=== PATIENT | female | born 1940 | race Caucasian/White ===

== ENCOUNTER → 2020-05-07 12:52 | Outpatient (CLI) | payer MEDICARE, SELFPAY ==
--- NOTE | 2020-05-07 12:52 | MM_ITS ---
PROCEDURE: MM DIG SCREENING MAMM BI W/CAD Referring Doctor: Itz Urbano Patient Age:79Y CLINICAL INDICATION: screening 79-year-old, no hormones, no new complaints. Family history sister with breast cancer in her 40s COMPARISON: No exams were available for comparison Prior outside films have been called for from [facility] several times but have never arrive TECHNIQUE: Standard CC and MLO images were obtained. R2 CAD reviewed. Bilateral digital breast tomosynthesis included. FINDINGS: Moderate breast density. Slightly beaded,, ductal prominence pattern bilaterally. Fibroglandular elements most evident throughout retroareolar region and central breast.. No suspicious calcifications. No dominant mass. CAD highlights no areas of concern either breast . Right breast. No areas of significant concern Small focus density at the deep superior right breast on MLO view dissipates on tomosynthesis view and cc views. Overall no area of significant concern.. Would encourage and emphasize bilateral follow-up mammogram 1 year. Left breast. No focal area of significant concern the IMPRESSION: No areas of significant concern. Bilateral follow-up 1 year , would be emphasized and encouraged. (We call several times for mammogram studies from [place], but they never arrived. An addendum a follow if they the can be obtained by patient or become available)) BI-RAD Category: 2 Benign Finding(s) FOLLOW-UP: 1YR 1 Year Follow-up (A letter has been sent to the patient regarding results of the study.) Dictated by: Myron Lange MD 05/27/2020 10:39 Myron Lange MD in [place] 05/27/2020 10:39
--- NOTE | 2020-05-07 12:52 | XR_ITS ---
PROCEDURE: XR DEXA AXIAL SKELETON CLINICAL HISTORY: screening COMPARISON: No exams were available for comparison FINDINGS: The right hip BMD is 0.559 with a T-score of -2.6. The left hip BMD is 0.520 with a T-score of -3.5. The lumbar spine BMD is 0.709 with a T-score of -3.1. IMPRESSION: This patient is considered osteoporotic according to the World Health Organization criteria. Fracture risk is high. Treatment is advised. Based on these results a follow-up exam is recommended in 1 year. Dictated by: Zack Linder MD 05/09/2020 08:12 Zack Linder MD in [place] 05/09/2020 08:12
== END ==
PROVIDERS: PCP Family Medicine; Visit Provider Family Medicine
DX: Z12.31 Encounter for screening mammogram for malignant neoplasm of breast (principal); Z78.0 Asymptomatic menopausal state
CPT/HCPCS: 77063; 77067; 77080

== ENCOUNTER → 2020-06-04 10:46 | Outpatient (CLI) | payer MEDICARE, SELFPAY ==
[2020-06-04 12:10] LABS: Creatine Kinase 43 U/L (30-135); Erythrocyte Sedimentation Rate 6 mm/hr (0-30)
[2020-06-04 12:16] LABS: C-Reactive Protein 3.5 mg/L (0-4)
== END ==
PROVIDERS: Visit Provider Internal Medicine Rheumatology
DX: M25.50 Pain in unspecified joint (principal); M79.10 Myalgia, unspecified site
CPT/HCPCS: 36415; 82550; 85651; 86140

== ENCOUNTER → 2020-10-02 14:23 | Outpatient (CLI) | payer MEDICARE, SELFPAY ==
[2020-10-02 16:01] LABS: Basophils % 0.5 % (0.1-2.0); Eosinophils % 0.1 % (0.1-12.0); Hematocrit 46.1 % (37.0-47.0); Hemoglobin 14.3 g/dL (12.2-16.2); Lymphocytes # 0.5 K/mm3 (0.7-4.5); Lymphocytes % 5.8 % (10-50); Mean Corpuscular Hemoglobin 30.6 pg (27.0-31.2); Mean Corpuscular Volume 98.6 fl (81-99); Mean Platelet Volume 8.7 fl (7.4-10.4); Monocytes # 0.1 K/mm3 (0.1-1.0); Monocytes % 1.4 % (1.7-9.3); Neutrophils # 7.5 K/mm3 (1.8-7.8); Neutrophils % 92.2 % (37.0-80.0); Platelet Count 258 K/mm3 (142-424); Red Blood Count 4.68 M/mm3 (4.20-5.40); Red Cell Distribution Width 14.2 % (11.5-17.5); White Blood Count 8.1 K/mm3 (4.8-10.8)
[2020-10-02 16:09] LABS: Alanine Aminotransferase 22 U/L (12-78); Albumin Level 4.5 g/dl (3.5-5.0); Albumin/Globulin Ratio 1.9 (1.1-1.8); Alkaline Phosphatase 128 U/L (38-126); Anion Gap 12.4 mEq/L (5-15); Aspartate Amino Transferase 31 U/L (14-36); Bilirubin,Total 0.5 mg/dl (0.2-1.3); Blood Urea Nitrogen 19 mg/dl (7-17); Calcium 9.8 mg/dl (8.4-10.2); Carbon Dioxide 23 mmol/L (22.0-30.0); Chloride 103 mmol/L (98-107); Cholesterol 309 mg/dl (140-200); Estimated Glomerular Filt Rate 61 ml/min (>60); GFR (African American) 73 ML/MIN (>60); Globulin 2.4 g/dL (1.3-3.2); Glucose 111 mg/dl (74-100); Potassium 5.4 mmoL/L (3.5-5.1); Sodium 133 mmol/L (136-145); Total Protein,Serum 6.9 g/dl (6.3-8.2); Triglycerides 60 mg/dl (30-150); VLDL Cholesterol 12 mg/dL (0-40)
[2020-10-02 16:19] LABS: Chol/HDL Ratio 2.6 (1-3.5); HDL Cholesterol 121 mg/dl (40-60)
[2020-10-02 16:29] LABS: T4 (Thyroxine) 8.6 ug/dl (5.53-11.0)
[2020-10-02 16:42] LABS: Thyroid Stimulating Hormone 1.21 uIU/mL (0.465-4.68)
[2020-10-02 17:54] LABS: MANUAL DIFFERENTIAL MANUAL DIFFERENTIAL (MANUAL DIFF)
[2020-10-02 18:15] LABS: Lymphocytes % 7 % (10-50); Monocytes % 2 % (2-9); Neutrophils % 91 % (42-76); Platelet Estimate Normal; RBC Morphology Normal; Total Cells Counted 100
== END ==
PROVIDERS: Visit Provider Family Medicine
DX: G40.909 Epilepsy, unspecified, not intractable, without status epilepticus (principal); M79.7 Fibromyalgia; M35.3 Polymyalgia rheumatica; I10 Essential (primary) hypertension
CPT/HCPCS: 80053; 80061; 84436; 84443; 85007; 85025

== ENCOUNTER → 2021-02-01 13:24 | Outpatient (CLI) | payer MEDICARE, SELFPAY ==
--- NOTE | 2021-02-01 13:29 | XR_ITS ---
PROCEDURE: XR CHEST 2V CLINICAL HISTORY: left chest wall pain, inferior/posterior/lateral COMPARISON: No exams were available for comparison FINDINGS: Bilateral apical pleural scarring is noted. Focal irregular density is noted in the right upper zone in the subpleural location. Background of chronic interstitial changes. No lobar consolidation, pleural effusions or pneumothorax. Cardiac size and central pulmonary vasculature within normal limits. Vascular calcification is noted. Degenerative changes of the visualized thoracic spine. Minor levoscoliosis is noted. IMPRESSION: Focal subtle density in the right mid zone in subpleural location. A CT scan of the thorax without contrast is recommended for further evaluation. Dictated by: Beckie Cordero 02/01/2021 15:24 Beckie Cordero in [place] 02/01/2021 15:24
--- NOTE | 2021-02-01 13:29 | XR_ITS ---
PROCEDURE: XR RIBS LT 2V CLINICAL INDICATION: pain COMPARISON: No exams were available for comparison FINDINGS: Limited study as the upper ribs are not visualized and osteopenia. There is healing fractures of the left 6th 7th and 8th ribs. No evidence of acute fractures are noted. Osteopenia is noted. Minor degenerative changes of the visualized thoracic spine noted. IMPRESSION: Limited study. Healing rib fractures on the left. Dictated by: Beckie Cordero 02/01/2021 15:26 Beckie Cordero in [place] 02/01/2021 15:26
== END ==
PROVIDERS: PCP Family Medicine; Visit Provider Family Medicine
DX: R69 Illness, unspecified (principal)
CPT/HCPCS: 71046; 71100

== ENCOUNTER → 2021-03-04 08:13 | Outpatient (CLI) | payer MEDICARE, SELFPAY ==
--- NOTE | 2021-03-04 08:14 | CT_ITS ---
PROCEDURE: CT CHEST WO CON CLINICAL INDICATION: abn cxr Follow-up abnormal chest x-ray COMPARISON: CR XR CHEST 2V from 02/01/2021 TECHNIQUE: Axial images obtained with sagittal and coronal reformats. All CT scans at the facility use one or more dose reduction, viz: automated exposure control, ma/kV adjustment per patient size (including targeted exams where dose is matched to indication, i.e. head), or iterative reconstruction technique. FINDINGS: No mediastinal or hilar mass. There are few small mediastinal lymph nodes. Normal heart size. There is a small hiatal hernia. Upper abdominal images show a hypodensity of the right hepatic lobe at 6 mm and could be due to small cyst. There is biapical pleural thickening. Pleural parenchymal thickening present in the right apex. This may be due to scarring. Subpleural density noted in the right upper lobe posterior laterally suggesting scarring. There is mild pleural thickening of the right major fissure laterally accounting for the radiographic abnormality. Chronic changes are present in the right middle lobe. A subpleural nodules present in the right lower lobe posteriorly at 4 mm. A 4 mm fissural nodule is present in the major fissure superiorly on the right. Scarring or atelectatic changes are present in the left lower lobe and lingula. There is mild upper thoracic curvature convex right and lower thoracic curvature convex left. IMPRESSION: 1. There are scattered pleural and parenchymal opacities as described above which may be due to scarring and or atelectatic change. Consider six-month follow-up to confirm stability. 2. Nodular opacity noted on the chest x-ray is secondary to some thickening of the right major fissure laterally. Dictated by: Zack Linder MD 03/04/2021 12:57 Zack Linder MD in [place] 03/04/2021 12:57
== END ==
PROVIDERS: PCP Family Medicine; Visit Provider Family Medicine
DX: R93.89 Abnormal findings on diagnostic imaging of other specified body structures (principal); Z13.820 Encounter for screening for osteoporosis; Z78.0 Asymptomatic menopausal state
CPT/HCPCS: 71250

== ENCOUNTER → 2021-03-08 09:23 | Outpatient (CLI) | payer MEDICARE, SELFPAY ==
--- NOTE | 2021-03-08 09:23 | XR_ITS ---
PROCEDURE: XR DEXA AXIAL SKELETON CLINICAL HISTORY: screening COMPARISON: No exams were available for comparison FINDINGS: The right hip BMD is 0.59 with a T-score of -2.8. The left hip BMD is 0.490 with a T-score of -3.7. The lumbar spine BMD is 0.766 with a T-score of -2.6. IMPRESSION: This patient is considered osteoporotic according to the World Health Organization criteria. Fracture risk is high. Treatment is advised. Based on these results a follow-up exam is recommended in one year. Dictated by: Zack Linder MD 03/08/2021 12:19 Zack Linder MD in [place] 03/08/2021 12:19
== END ==
PROVIDERS: PCP Family Medicine; Visit Provider Family Medicine
DX: Z78.0 Asymptomatic menopausal state (principal)
CPT/HCPCS: 77080

== ENCOUNTER → 2021-03-15 14:16 | Outpatient (CLI) | payer MEDICARE, SELFPAY ==
--- NOTE | 2021-03-15 14:19 | CA_ITS ---
APPROVED REPORT Bilateral Lower Extremity Venous Study for DVT. Childhood Development Teacher: VERENA Indications Lower Extremity Pain: Bilateral Lower Extremity Edema: Bilateral edema and pain Vein Imaging CFV (R): compressive, spontaneous, phasic, augmentation SFJ (R): compressive, spontaneous, phasic, augmentation FEM (R): compressive, spontaneous, phasic, augmentation POP (R): compressive, spontaneous, phasic, augmentation DFV (R): compressive, spontaneous, phasic, augmentation PTV (R): compressive, spontaneous, phasic, augmentation GSV (R): compressive, spontaneous, phasic, augmentation SSV (R): compressive, spontaneous, phasic, augmentation Peroneals (R):compressive, spontaneous, phasic, augmentation GAS (R): compressive, spontaneous, phasic, augmentation CFV (L): compressive, spontaneous, phasic, augmentation SFJ (L): compressive, spontaneous, phasic, augmentation FEM (L): compressive, spontaneous, phasic, augmentation POP (L): compressive, spontaneous, phasic, augmentation DFV (L): compressive, spontaneous, phasic, augmentation PTV (L): compressive, spontaneous, phasic, augmentation GSV (L): compressive, spontaneous, phasic, augmentation SSV (L): compressive, spontaneous, phasic, augmentation Peroneals (L):compressive, spontaneous, phasic, augmentation GAS (L): compressive, spontaneous, phasic, augmentation Findings Color flow duplex demonstrates no evidence of DVT of the following bilateral lower extremity Veins:Common Femoral Vein, Femoral Vein, Popliteal Vein, Posterior Tibial Veins, Peroneal Veins, Deep Femoral Vein. Negative for DVT. Conclusion Negative for DVT. Electronically signed by : Zack Linder MD 03/15/2021 16:18:25
--- NOTE | 2021-03-15 14:23 | XR_ITS ---
PROCEDURE: XR TIBIA FIBULA RT 2V CLINICAL INDICATION: pain COMPARISON: No exams were available for comparison FINDINGS: No fracture or dislocation. No lytic or blastic change. There is normal mineralization. The joint spaces are well-preserved. No significant degenerative/arthritic changes. No erosive changes evident. Other findings:None. IMPRESSION: Negative right tib fib Dictated by: Zack Linder MD 03/15/2021 15:33 Zack Linder MD in [place] 03/15/2021 15:33
--- NOTE | 2021-03-15 14:23 | XR_ITS ---
PROCEDURE: XR TIBIA FIBULA LT 2V CLINICAL INDICATION: pain COMPARISON: No exams were available for comparison FINDINGS: Prior ORIF mid to distal tib fib fracture with good alignment. Intramedullary kev is in place with no prosthesis failure. Old fracture of the junction of the mid distal shaft of the fibula with good alignment. No acute fracture or dislocation. Other findings:None. IMPRESSION: Good alignment prior ORIF tib fib fracture with no acute finding Dictated by: Zcak Linder MD 03/15/2021 15:31 Zack Linder MD in [place] 03/15/2021 15:31
--- NOTE | 2021-03-15 14:23 | XR_ITS ---
PROCEDURE: XR CHEST 2V CLINICAL HISTORY: edema COMPARISON: CR XR CHEST 2V from 02/01/[address] CHEST WO CON from 03/04/2021 FINDINGS: Mild cardiomegaly without failure. Biapical pleural thickening. No lobar consolidation or collapse. Chronic changes right upper lobe lung laterally. Upper thoracic scoliosis convex right. IMPRESSION: Chronic changes with cardiomegaly. No acute finding Dictated by: Zack Linder MD 03/15/2021 15:32 Zack Linder MD in [place] 03/15/2021 15:32
[2021-03-15 16:15] LABS: Basophils # 0.1 K/mm3 (0-0.2); Basophils % 0.9 % (0.1-2.0); Eosinophils # 0.1 K/mm3 (0.0-0.4); Hematocrit 45.8 % (37.0-47.0); Lymphocytes # 1.5 K/mm3 (0.7-4.5); Lymphocytes % 25.5 % (10-50); Mean Corpuscular HGB Conc 30.5 g/dL (31.8-35.4); Mean Corpuscular Hemoglobin 30.4 pg (27.0-31.2); Mean Corpuscular Volume 99.4 fl (81-99); Monocytes # 0.5 K/mm3 (0.1-1.0); Neutrophils # 3.9 K/mm3 (1.8-7.8); Neutrophils % 64.6 % (37.0-80.0); Platelet Count 199 K/mm3 (142-424); Red Blood Count 4.61 M/mm3 (4.20-5.40); Red Cell Distribution Width 12.8 % (11.5-17.5)
[2021-03-15 19:24] LABS: Alanine Aminotransferase 19 U/L (12-78); Albumin Level 3.8 g/dl (3.5-5.0); Albumin/Globulin Ratio 1.4 (1.1-1.8); Alkaline Phosphatase 134 U/L (38-126); Anion Gap 15.8 mEq/L (5-15); Aspartate Amino Transferase 38 U/L (14-36); Bilirubin,Total 0.4 mg/dl (0.2-1.3); Blood Urea Nitrogen 23 mg/dl (7-17); Calcium 10.1 mg/dl (8.4-10.2); Carbon Dioxide 28 mmol/L (22.0-30.0); Chloride 103 mmol/L (98-107); Estimated Glomerular Filt Rate 48 ml/min (>60); GFR (African American) 58 ML/MIN (>60); Globulin 2.7 g/dL (1.3-3.2); Glucose 79 mg/dl (74-100); Potassium 4.8 mmoL/L (3.5-5.1); Sodium 142 mmol/L (136-145); Total Protein,Serum 6.5 g/dl (6.3-8.2)
[2021-03-15 19:34] LABS: NT Pro Brain Natriuretic Pep. 168 pg/mL (0-450)
[2021-03-15 19:55] LABS: Thyroid Stimulating Hormone 2.53 uIU/mL (0.465-4.68)
== END ==
PROVIDERS: PCP Family Medicine; Visit Provider Family Medicine
DX: M79.604 Pain in right leg (principal); M79.605 Pain in left leg; R60.0 Localized edema; I50.9 Heart failure, unspecified; M35.3 Polymyalgia rheumatica
CPT/HCPCS: 36415; 71046; 73590; 80053; 83880; 84443; 85025; 93970

== ENCOUNTER 2021-03-25 09:31 | Emergency (ER) | payer MEDICARE, SELFPAY ==
[2021-03-25 09:31] VITALS: BP 128/70; PULSE 112; RESP 18; TEMP 36.8; O2SAT 98; BMI 28.2
--- NOTE | 2021-03-25 09:34 | XR_ITS ---
PROCEDURE: XR LUMBAR SPINE MIN 4V CLINICAL INDICATION: low back pain COMPARISON: No exams were available for comparison FINDINGS: There is minimal lumbar curvature convex left. Degenerative disc disease is present at L2-L3 L4-5 and L5-S1. No acute fracture or dislocation. No lytic or blastic change. There are facet arthritic changes at L5-S1. Soft tissue calcification noted about the ilium on both sides IMPRESSION: Degenerative changes as described above. Dictated by: Zack Linder MD 03/25/2021 10:35 Zack Linder MD in [place] 03/25/2021 10:35
--- NOTE | 2021-03-25 09:39 | HMH.EDGENADL ---
ED Disposition Clinical Impression: Lumbar radicular pain Disposition: Home, Self-Care Condition on Discharge: Fair Instructions: DI for Lumbar Radiculopathy Additional Instructions: You have been evaluated for lumbar radicular pain, pain radiating from low back into the leg. Please follow-up with your primary care doctor within 24 to 48 hours. Take anti-inflammatories. Take short course of steroids. Use heat, ice, stretching. Return for any new or worsening symptoms Prescriptions: predniSONE [Prednisone 20mg Tab] 20 mg PO DAILY #5 tab Transmission Status: Received by [facility] Referrals: Itz Urbano MD [Primary Care Provider] - Time of Disposition: 12:22 - Critical Care Critical Care Time: No Attestation: On 03/25/21, the high probability of a clinically significant, sudden or life threatening deterioration of the following system(s) required my full and direct attention, intervention and personal management. The time I documented below is in addition to time spent performing reported procedures but includes the following listed in this critical care notation. Medical Decision Making - Medical Records Medical records reviewed: Yes: I reviewed the patient's medical records. - Josef Inquiry Pt receiving controlled substance: No Vital Signs: 03/25/21 09:31 Temperature 98.3 F Temperature Source Oral Pulse Rate [Radial] 112 H Respiratory Rate 18 Blood Pressure [Right Arm] 128/70 Blood Pressure Mean [Right Arm] 89 Blood Pressure Position [Right Arm] Sitting 02 Sat by Pulse Oximetry 98 Oxygen Delivery Method Room Air - Lab Data Lab Results 03/25/21 09:55: WBC 8.3, RBC 5.34, Hgb 16.1, Hct 51.5 H, MCV 96.4, MCH 30.2, MCHC 31.3 L, RDW 12.9, Plt Count 213, MPV 10.0, Neut % (Auto) 83.3 H, Lymph % (Auto) 12.2, [place] % (Auto) 3.6, Eos % (Auto) 0.4, Baso % (Auto) 0.5, Neut # (Auto) 6.9, Lymph # (Auto) 1.0, [place] # (Auto) 0.3, Eos # (Auto) 0.0, Baso # (Auto) 0.0 03/25/21 09:55: Sodium 142, Potassium 4.9, Chloride 109 H, Carbon Dioxide 20 L, Anion Gap 17.9 H, BUN 20 H, Creatinine 1.00, Estimated Creat Clear 57, Estimated GFR 53 L, Est GFR ( Amer) 65, Glucose 116 H, Calcium 9.0, Total Bilirubin 1.0, AST 82 H, ALT 34, Alkaline Phosphatase 98, C-Reactive Protein 88.6 H, Total Protein 7.2, Albumin 3.9, Globulin 3.3 H, Albumin/Globulin Ratio 1.2 Result diagrams: 03/25/21 09:55 03/25/21 09:55 Orders (Tests/Meds): ED MEDICATIONS Discontinued Medications Generic Name Dose Route Start Last Admin Trade Name Freq PRN Reason Stop Dose Admin Methylprednisolone Sodium Succinate 125 mg 03/25/21 09:38 03/25/21 10:00 Methylprednisolone Sod Succ 125mg Vial IV 03/25/21 09:39 125 mg ONCE ONE Administration Morphine Sulfate 4 mg 03/25/21 09:38 03/25/21 10:00 Morphine 4mg/Ml Syringe IV 03/25/21 09:39 4 mg ONCE ONE Administration ORDERS Category Date Time Status Urinalysis and Microscopic Stat Lab 03/25/21 09:34 Ordered - Radiology Data #1 Image(s): L-Spine Image Reviewed: Yes I reviewed the patient's radiology results, Yes I reviewed the patient's radiology image Preliminary Findings: Normal/NAD FINDINGS: There is minimal lumbar curvature convex left. Degenerative disc disease is present at L2-L3 L4-5 and L5-S1. No acute fracture or dislocation. No lytic or blastic change. There are facet arthritic changes at L5-S1. Soft tissue calcification noted about the ilium on both sides IMPRESSION: Degenerative changes as described above Medical Decision Narrative: In summary this is a 80-year-old female with history of fibromyalgia and scoliosis presenting to the emergency department with left leg pain. Patient clinically stable on arrival. Vital signs within normal limits. Concern for DJD, osteoarthritis, hip effusion. Will obtain x-rays of the left hip, pelvis, lumbar spine. Will obtain screening CBC, CMP, CRP, urinalysis. Patient given 4 mg
--- NOTE | 2021-03-25 09:43 | XR_ITS ---
PROCEDURE: XR HIP LT 2-3V W/PELVIS CLINICAL INDICATION: pain COMPARISON: No exams were available for comparison FINDINGS: No acute fracture or dislocation. No lytic blastic change. There is dense calcification noted over the ilium on both sides laterally and may be within the soft tissues. IMPRESSION: No acute findings. Dictated by: Zack Linder MD 03/25/2021 10:28 Zack Linder MD in [place] 03/25/2021 10:28
--- NOTE | 2021-03-25 09:45 | PC.NURSE ---
notified rad of orders on pt, spoke with Shay
[2021-03-25 10:02] LABS: Basophils % 0.5 % (0.1-2.0); Eosinophils % 0.4 % (0.1-12.0); Hematocrit 51.5 % (37.0-47.0); Hemoglobin 16.1 g/dL (12.2-16.2); Lymphocytes % 12.2 % (10-50); Mean Corpuscular HGB Conc 31.3 g/dL (31.8-35.4); Mean Corpuscular Hemoglobin 30.2 pg (27.0-31.2); Mean Corpuscular Volume 96.4 fl (81-99); Monocytes # 0.3 K/mm3 (0.1-1.0); Monocytes % 3.6 % (1.7-9.3); Neutrophils # 6.9 K/mm3 (1.8-7.8); Neutrophils % 83.3 % (37.0-80.0); Platelet Count 213 K/mm3 (142-424); Red Blood Count 5.34 M/mm3 (4.20-5.40); Red Cell Distribution Width 12.9 % (11.5-17.5); White Blood Count 8.3 K/mm3 (4.8-10.8)
[2021-03-25 10:09] LABS: Chloride 109 mmol/L (98-107); Sodium 142 mmol/L (136-145)
[2021-03-25 10:10] LABS: Potassium 4.9 mmoL/L (3.5-5.1)
[2021-03-25 10:12] LABS: Alanine Aminotransferase 34 U/L (12-78); Alkaline Phosphatase 98 U/L (38-126); Aspartate Amino Transferase 82 U/L (14-36); Blood Urea Nitrogen 20 mg/dl (7-17); Creatinine Clearance Estimated 57 mL/min (50-200); Estimated Glomerular Filt Rate 53 ml/min (>60); GFR (African American) 65 ML/MIN (>60)
[2021-03-25 10:13] LABS: Albumin Level 3.9 g/dl (3.5-5.0); Albumin/Globulin Ratio 1.2 (1.1-1.8); Anion Gap 17.9 mEq/L (5-15); Carbon Dioxide 20 mmol/L (22.0-30.0); Globulin 3.3 g/dL (1.3-3.2); Glucose 116 mg/dl (74-100); Total Protein,Serum 7.2 g/dl (6.3-8.2)
[2021-03-25 10:18] LABS: C-Reactive Protein 88.6 mg/L (0-4)
--- NOTE | 2021-03-25 13:13 | PC.NURSE ---
pt sitting up in chair eating lunch tray at this time
[2021-03-25 13:34] VITALS: BP 146/53; PULSE 90; RESP 96; TEMP 36.6
== END 2021-03-25 13:36 | disposition home or self-care (01) ==
PROVIDERS: Emergency Provider Emergency Medicine; PCP Family Medicine
DX: M54.16 Radiculopathy, lumbar region (principal); E78.5 Hyperlipidemia, unspecified; M79.7 Fibromyalgia; Z79.899 Other long term (current) drug therapy
CPT/HCPCS: 72110; 73502; 80053; 85025; 86140; 96374; 96375; 99282

== ENCOUNTER 2021-03-28 16:05 | Inpatient (IN) | payer MEDICARE, SELFPAY ==
[2021-03-28] VITALS (14 sets, daily range): BP systolic 88–115; BP diastolic 46–75; PULSE 39–106; RESP 16–22; TEMP 36.9; O2SAT 75–98; BMI 27.8
--- NOTE | 2021-03-28 16:17 | CT_ITS ---
PROCEDURE INFORMATION: Exam: CT Head Without Contrast Exam date and time: 03/28/2021 4:17 PM Age: 80 years old Clinical indication: Other: Lethargy TECHNIQUE: Imaging protocol: Computed tomography of the head without contrast. Radiation optimization: All CT scans at this facility use at least one of these dose optimization techniques: automated exposure control; mA and/or kV adjustment per patient size (includes targeted exams where dose is matched to clinical indication); or iterative reconstruction. COMPARISON: No relevant prior studies available. FINDINGS: Brain: Normal. No hemorrhage. Unremarkable white matter. No mass effect. Cerebral ventricles: No ventriculomegaly. Paranasal sinuses: Visualized sinuses are unremarkable. No fluid levels. Mastoid air cells: Visualized mastoid air cells are well aerated. Bones/joints: Unremarkable. No acute fracture. Soft tissues: Unremarkable. IMPRESSION: No acute intracranial abnormality.
--- NOTE | 2021-03-28 16:17 | XR_ITS ---
PROCEDURE INFORMATION: Exam: XR Chest Exam date and time: 03/28/2021 4:17 PM Age: 80 years old Clinical indication: Other: Lethargy TECHNIQUE: Imaging protocol: XR of the chest. Views: 1 view. COMPARISON: CR XR CHEST 2V 03/15/2021 2:39 PM FINDINGS: Lungs: Streaky left basilar opacities. Pleural spaces: Unremarkable. No pleural effusion. No pneumothorax. Heart/Mediastinum: Mild cardiac enlargement. Bones/joints: Unremarkable. Other findings: Small left effusion suspected. IMPRESSION: Findings concerning for left basilar pneumonia
--- NOTE | 2021-03-28 16:24 | ECG_ITS ---
APPROVED REPORT Exam: Resting ECG HR:92 bpm ECG Measurements Heart Rate 92 AXES WY 204 P 65 QRSd 74 QRS 38 QT 332 T 53 QTc 410 Conclusion Normal sinus rhythm Late R wave progression, previously noted Abnormal ECG Electronically signed by : Jalen Bailey MD 03/29/2021 18:09:09
[2021-03-28 16:42] LABS: Basophils # 0.1 K/mm3 (0-0.2); Basophils % 0.3 % (0.1-2.0); Eosinophils # 0.2 K/mm3 (0.0-0.4); Hematocrit 42.4 % (37.0-47.0); Hemoglobin 13.7 g/dL (12.2-16.2); Lymphocytes # 0.5 K/mm3 (0.7-4.5); Lymphocytes % 2.6 % (10-50); Mean Corpuscular HGB Conc 32.2 g/dL (31.8-35.4); Mean Corpuscular Hemoglobin 30.5 pg (27.0-31.2); Mean Corpuscular Volume 94.8 fl (81-99); Mean Platelet Volume 10.9 fl (7.4-10.4); Monocytes # 0.7 K/mm3 (0.1-1.0); Monocytes % 3.5 % (1.7-9.3); Neutrophils # 19.2 K/mm3 (1.8-7.8); Neutrophils % 92.6 % (37.0-80.0); Platelet Count 189 K/mm3 (142-424); Red Blood Count 4.48 M/mm3 (4.20-5.40); Red Cell Distribution Width 12.3 % (11.5-17.5); White Blood Count 20.8 K/mm3 (4.8-10.8)
[2021-03-28 16:46] LABS: MANUAL DIFFERENTIAL MANUAL DIFFERENTIAL (MANUAL DIFF)
[2021-03-28 16:50] LABS: Alanine Aminotransferase 38 U/L (12-78); Albumin Level 3.2 g/dl (3.5-5.0); Albumin/Globulin Ratio 1.1 (1.1-1.8); Alkaline Phosphatase 115 U/L (38-126); Anion Gap 11.4 mEq/L (5-15); Aspartate Amino Transferase 111 U/L (14-36); Bilirubin,Total 0.9 mg/dl (0.2-1.3); Blood Urea Nitrogen 57 mg/dl (7-17); Calcium 8.1 mg/dl (8.4-10.2); Carbon Dioxide 24 mmol/L (22.0-30.0); Chloride 104 mmol/L (98-107); Creatinine Clearance Estimated 20 mL/min (50-200); Estimated Glomerular Filt Rate 18 ml/min (>60); GFR (African American) 21 ML/MIN (>60); Globulin 2.9 g/dL (1.3-3.2); Glucose 117 mg/dl (74-100); Potassium 4.4 mmoL/L (3.5-5.1); Sodium 135 mmol/L (136-145); Total Protein,Serum 6.1 g/dl (6.3-8.2)
[2021-03-28 16:56] LABS: Lymphocytes % 12 % (10-50); Monocytes % 6 % (2-9); Neutrophils % 82 % (42-76); Platelet Estimate Normal; RBC Morphology Normal; Total Cells Counted 100
[2021-03-28 17:02] LABS: Coronavirus 19, PCR Not Detected (NotDetected); Influenza A, PCR Not Detected (NotDetected); Influenza B, PCR Not Detected (NotDetected)
[2021-03-28 17:14] LABS: Lactic Acid 1.4 mmol/L (0.7-2.1)
--- NOTE | 2021-03-28 17:42 | HMH.EDGENADL ---
ED Disposition Clinical Impression: Acute kidney injury, Dehydration, Lethargy Community acquired pneumonia Qualifiers: Laterality: left Lung location: lower lobe of lung Qualified Code(s): J18.9 - Pneumonia, unspecified organism Sepsis Qualifiers: Sepsis type: sepsis due to unspecified organism Sepsis acute organ dysfunction status: with acute organ dysfunction Severe sepsis acute organ dysfunction type: acute renal failure Acute renal failure type: unspecified Severe sepsis shock status: without septic shock Qualified Code(s): A41.9 - Sepsis, unspecified organism UTI (urinary tract infection) Qualifiers: Urinary tract infection type: site unspecified Hematuria presence: with hematuria Qualified Code(s): N39.0 - Urinary tract infection, site not specified Disposition: Admitted As Inpatient Condition on Discharge: Serious - Critical Care Critical Care Time: No Attestation: On 03/28/21, the high probability of a clinically significant, sudden or life threatening deterioration of the following system(s) required my full and direct attention, intervention and personal management. The time I documented below is in addition to time spent performing reported procedures but includes the following listed in this critical care notation. Medical Decision Making - Medical Records Medical records reviewed: Yes: I reviewed the patient's medical records. MR Comment: Seen in this emergency department on 03/25/2021 for lumbar radiculopathy. Followed up the next day in the office with Dr. Urbano. Treated with steroids. - Josef Inquiry Pt receiving controlled substance: No Vital Signs: 03/28/21 16:04 03/28/21 16:30 03/28/21 17:30 Temperature 98.4 F Temperature Source Oral Pulse Rate 86 85 Pulse Rate [Right Radial] 92 H Respiratory Rate 21 18 16 Blood Pressure 105/55 L 108/52 L Blood Pressure [Right Arm] 115/53 L Blood Pressure Mean [Right Arm] 73 Blood Pressure Source [Right Arm] Automatic Cuff Blood Pressure Position [Right Arm] Sitting 02 Sat by Pulse Oximetry 96 96 98 Oxygen Delivery Method Room Air - Lab Data Lab Results 03/28/21 16:25: WBC 20.8 H*, RBC 4.48, Hgb 13.7, Hct 42.4, MCV 94.8, MCH 30.5, MCHC 32.2, RDW 12.3, Plt Count 189, MPV 10.9 H, Neut % (Auto) 92.6 H, Lymph % (Auto) 2.6 L, [place] % (Auto) 3.5, Eos % (Auto) 1.0, Baso % (Auto) 0.3, Neut # (Auto) 19.2 H, Lymph # (Auto) 0.5 L, [place] # (Auto) 0.7, Eos # (Auto) 0.2, Baso # (Auto) 0.1, Total Counted 100, Neutrophils % (Manual) 82 H, Lymphocytes % (Manual) 12, Monocytes % (Manual) 6, Platelet Estimate Normal, RBC Morphology Normal 03/28/21 16:25: Sodium 135 L, Potassium 4.4, Chloride 104, Carbon Dioxide 24, Anion Gap 11.4, BUN 57 H, Creatinine 2.60 H, Estimated Creat Clear 20, Estimated GFR 18 L*, Est GFR ( Amer) 21 L, Glucose 117 H, Calcium 8.1 L, Total Bilirubin 0.9, AST 111 H, ALT 38, Alkaline Phosphatase 115, Total Protein 6.1 L, Albumin 3.2 L, Globulin 2.9, Albumin/Globulin Ratio 1.1 03/28/21 16:25: Lactate 1.4 03/28/21 16:25: SARS-CoV-2 (PCR) Not detected, Influenza A Untype (PCR) Not detected, Influenza Type B (PCR) Not detected 03/28/21 17:51: Urine Color Yellow, Urine Appearance Turbid, Urine pH 6.0, Ur Specific [place] 1.020, Urine Protein 3+, Urine Glucose (UA) Negative, Urine Ketones Negative, Urine Blood 3+, Urine Nitrate Negative, Urine Bilirubin Negative, Urine Urobilinogen 1.0, Ur Leukocyte Esterase 3+ A, Urine RBC 20-50, Urine WBC 20-50, Ur Squamous Epith Cells 5-10, Amorphous Sediment 2+, Urine Bacteria 1+, RBC Casts 3-5 Result diagrams: 03/28/21 16:25 03/28/21 16:25 Orders (Tests/Meds): ED MEDICATIONS Generic Name Dose Route Start Last Admin Trade Name Freq PRN Reason Stop Dose Admin Ceftriaxone Sodium 1 gm/ 50 mls @ 100 mls/hr 03/28/21 18:15 03/28/21 18:13 Sodium Chloride IV 04/11/21 18:14 100 mls/hr Q24H QUINCY Administration Azithromycin 500 mg/ Sodium 250 mls @ 250 mls/hr 03/28/21 18:15 Chloride IV
[2021-03-28 17:54] LABS: Appearance,Urine TURBID (Clear); Bilirubin,Urine Negative (Negative); Blood, Urine 3+ (Negative); Color,Urine YELLOW (Yellow); Glucose,Urine (UA) Negative (Negative); Ketones,Urine Negative (Negative); Leukocyte Esterase,Urine 3+ (Negative); Microscopic, Urine URINE MICROSCOPIC (MICROSCOPIC); Nitrate,Urine Negative (Negative); Protein,Urine 3+ (Negative)
[2021-03-28 18:03] LABS: Amorphous Sediment,Urine 2+ /lpf; Bacteria,Urine 1+ /lpf; RBC,Urine 20-50 #/hpf (0-3); WBC,Urine 20-50 #/hpf (0-3)
--- NOTE | 2021-03-28 18:06 | PC.NURSE ---
Called green house manager for a bed. Advised that we do not have any available beds at this time. Will be boarding pt in ED.
--- NOTE | 2021-03-28 19:00 | PC.NURSE ---
received report from day nurse that patient was a bedhold in the ED for admit. noted pt had a diagnosis of CAP, had rec'd two IV ATB's and was sleeping. Resp e/u. VSS and documented.
--- NOTE | 2021-03-28 20:49 | P.CONPHA_ITS ---
[facility] Pharmacy VTE Monitoring - Patient Demographics Admission date: 03/28/21 Report Date: 03/28/21 Time: 20:49 Allergies/Adverse Reactions: Patient Allergies duloxetine Adverse Reaction (Severe, Verified 03/26/21 09:27) Hallucinating Height: 1.63 m Weight: 73.482 kg Patient Problems: Current Active Problems Community acquired pneumonia (Acute) Sepsis (Acute) Acute kidney injury (Acute) Dehydration (Acute) Lethargy (Acute) UTI (urinary tract infection) (Acute) - VTE Risk Labs: VTE Related Lab Results Hgb 13.7 g/dL (12.2-16.2) 03/28/21 16:25 Hct 42.4 % (37.0-47.0) 03/28/21 16:25 Plt Count 189 K/mm3 (142-424) 03/28/21 16:25 BUN 57 mg/dl (7-17) H 03/28/21 16:25 Creatinine 2.60 mg/dl (0.52-1.04) H 03/28/21 16:25 Estimated Creat Clear 20 mL/min (50-200) 03/28/21 16:25 Clinical Trial Participant: No - Prophylaxis VTE Prophylaxis Ordered?: Yes Types of VTE Prophylaxis: TEDS Knee High
[2021-03-29] VITALS (19 sets, daily range): BP systolic 91–122; BP diastolic 42–62; PULSE 69–97; RESP 16–24; TEMP 35.8–36.7; O2SAT 94–99; BMI 27.4
--- NOTE | 2021-03-29 00:14 | PC.NURSE ---
turned and repositioned per protocol onto left side. pt is alert and oriented to self and location. incr rectal temp noted. tylenol given AR, anderson cath placed for accurate I&O.
--- NOTE | 2021-03-29 05:03 | PC.NURSE ---
received notification from lab that patient had prelim reading of blood cultures being gram neg rods. informed.
--- NOTE | 2021-03-29 07:26 | HMH.PHAINT ---
MEDICATION RECONCILIATION COMPLETED USING PHYSICIAN LIST AND EXTERNAL PHARMACY FILL HISTORY.
--- NOTE | 2021-03-29 07:49 | PC.NURSE ---
Report given to Cayla Ovalle.
[2021-03-29 08:32] LABS: Basophils # 0.2 K/mm3 (0-0.2); Basophils % 0.5 % (0.1-2.0); Hematocrit 40.6 % (37.0-47.0); Lymphocytes # 1.6 K/mm3 (0.7-4.5); Lymphocytes % 4.6 % (10-50); Mean Corpuscular HGB Conc 30.2 g/dL (31.8-35.4); Mean Corpuscular Hemoglobin 29.9 pg (27.0-31.2); Mean Corpuscular Volume 99.1 fl (81-99); Mean Platelet Volume 12.2 fl (7.4-10.4); Monocytes # 2.2 K/mm3 (0.1-1.0); Monocytes % 6.1 % (1.7-9.3); Neutrophils # 30.9 K/mm3 (1.8-7.8); Neutrophils % 88.6 % (37.0-80.0); Platelet Count 153 K/mm3 (142-424); Red Blood Count 4.09 M/mm3 (4.20-5.40); Red Cell Distribution Width 12.4 % (11.5-17.5); White Blood Count 34.9 K/mm3 (4.8-10.8)
[2021-03-29 08:35] LABS: Chloride 111 mmol/L (98-107); Potassium 4.4 mmoL/L (3.5-5.1); Sodium 140 mmol/L (136-145)
[2021-03-29 08:38] LABS: Anion Gap 14.4 mEq/L (5-15); Blood Urea Nitrogen 57 mg/dl (7-17); Carbon Dioxide 19 mmol/L (22.0-30.0); Creatinine Clearance Estimated 21 mL/min (50-200); Estimated Glomerular Filt Rate 19 ml/min (>60); GFR (African American) 22 ML/MIN (>60)
[2021-03-29 08:39] LABS: Calcium 7.2 mg/dl (8.4-10.2); Glucose 95 mg/dl (74-100); MANUAL DIFFERENTIAL MANUAL DIFFERENTIAL (MANUAL DIFF)
[2021-03-29 08:46] LABS: Hemoglobin 12.4 g/dL (12.2-16.2)
[2021-03-29 09:21] LABS: Lymphocytes % 1 % (10-50); Monocytes % 6 % (2-9); Neutrophils % 93 % (42-76); Total Cells Counted 100
[2021-03-29 09:22] LABS: Hypochromasia 1+; Platelet Estimate Normal
--- NOTE | 2021-03-29 13:01 | HMH.HP ---
*Admission Date: 03/28/21 *Chief complaint: gram negative sepsis, pneumonia, mental status changes, uti *History of present illness: Patient is a 80-year-old white female, well known to me. She presented to the emergency room with mental status changes, confusion, lethargy, and generalized weakness. Her work-up included a CT of the brain which was unremarkable. 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 Urinalysis showed leukocytes, preliminary culture showing gram-negative rods. Blood culture shows E. coli. Patient is admitted for further valuation and treatment. He is currently on a azithromycin and Rocephin. Patient has a longstanding history of chronic pain, fibromyalgia. He had recently been seen with exacerbation of low back pain and difficulty with ambulation. She denies recent falls. Elevated creatinine was noted, consistent with acute kidney injury. Patient has what appears to be a flap laceration, right posterior calf. [facility] History Medical History: Reports:: Hyperlipidemia Denies:: Cancer, Diabetes Mellitus Type 1, Diabetes Mellitus Type 2, MRSA *Have you ever received a pneumonia vaccine?: Yes *Have you received a flu vaccine this season?: Yes Other Medical History: Reports: Arthritis, Fibromyalgia Other Surgeries: Yes: Appendectomy Amputation: No Fractures: Yes - *Social History Last grade of school completed: High school graduate Smoking Status: Never smoker Alcohol Intake: never Substance Use Type: denies use *Occupational Status:: retired Housing: house Household Members: spouse *Travel in the last 8 weeks: None Family Hx:: Non-contributory Review of Systems - Constitutional Reports daytime sleepiness, Reports fatigue, Reports fever(s), Reports lack of energy, Reports malaise, Reports weakness - Eyes Denies change in vision - ENT Denies abnormal hearing - *Cardiovascular Reports leg pain with activity, Reports shortness of breath with activity, Denies chest pain - *Respiratory Reports chest congestion, Reports cough, Reports shortness of breath, Reports shortness of breath with activity - *Gastrointestinal Denies abdominal pain - *Genitourinary Reports difficulty urinating - *Musculoskeletal Reports abnormal walking, Reports joint pain, Reports decreased muscle mass, Reports back pain, Reports deformity, Reports joint swelling, Reports limited joint movement, Reports muscle weakness, Reports body aches, Reports radiating pain into limb, Reports stiffness - Integumentary/Breasts Reports new lesions, Reports sores - *Neurologic Reports abnormal walking, Reports confusion, Reports unsteadiness, Reports radiating pain, Reports weakness - Psychiatric Reports behavioral changes, Reports change in appetite - Endocrine Denies cold intolerance, Denies excessive sweating - Hematologic/Lymphatic Denies easy bleeding, Denies easy bruising - Allergic/Immunologic Denies hives Meds Home Medications Medication Instructions Recorded Confirmed Type hydrocodone 7.5 mg-acetaminophen 1 tab PO BID PRN #60 tab 02/25/21 03/28/21 Rx 325 mg tablet lidocaine 5 % topical patch 2 patch TOPICAL DAILY PRN #60 each 02/25/21 03/28/21 Rx Acyclovir 200 mg PO DAILY 03/28/21 03/28/21 History Alendronate Sodium [Fosamax 70mg 70 mg PO WEEKLY 03/28/21 03/28/21 History Tablet] Calcium Carbonate 500 mg PO DAILY 03/28/21 03/28/21 History Celecoxib 200 mg PO DAILY 03/28/21 03/28/21 History Cholecalciferol (Vitamin D3) 25 mcg PO DAILY 03/28/21 03/28/21 History [Vitamin D3 1,000 unit Chew. Tab] Furosemide [Furosemide 40MG tAB*] 40 mg PO DAILY 03/28/21 03/28/21 History Potassium Chloride [K-Tab ER 10 10 meq PO DAILY 03/28/21 03/28/21 History mEq] Pravastatin Sodium [Pravachol 20mg 20 mg PO DAILY 03/28/21 03/28/21 History Tablet] Pregabalin 300 mg PO TID 03/28/21 03/28/21 History predniSONE [Prednisone 20mg 20 mg PO DAILY 03/28/21 03/28/21 History Tab]
--- NOTE | 2021-03-29 15:04 | PC.NURSE ---
PT IS RESTING IN BED WITH FAMILY AT BEDSIDE. NO COMPLAINTS OF DISCOMFORT OR SOA. ALERT AND ORIENTED X3. 02 SATURATION 94-98% ON 2 L NC. IV NOTED TO THE LFA WITH NS@100. EATING AND DRINKING FAIR. LUNG SOUNDS DIMINISHED. ABDOMEN SOFT/NON TENDER WITH ACTIVE BOWEL SOUNDS. ABRASIONS NOTED TO THE RLE. WILL CONTINUE TO MONITOR.
[2021-03-30] VITALS: BP 109/66; PULSE 68; RESP 20; TEMP 36.6; O2SAT 97
--- NOTE | 2021-03-30 02:59 | PC.NURSE ---
No acute changes t/o night, pt c/o of pain x1 in lower back gave meds per MAR with relief. VSS, call light within reach, will continue to monitor.
[2021-03-30 04:00] VITALS: BP 123/67; PULSE 67; RESP 20; TEMP 36.5; O2SAT 97
[2021-03-30 05:08] VITALS: BMI 27.4
--- NOTE | 2021-03-30 06:00 | XR_ITS ---
PROCEDURE INFORMATION: Exam: XR Chest Exam date and time: 03/30/2021 6:00 AM Age: 80 years old Clinical indication: Shortness of breath; Additional info: Pneumonia TECHNIQUE: Imaging protocol: XR of the chest. Views: 1 view. COMPARISON: CR XR CHEST PORTABLE 03/28/2021 4:58 PM FINDINGS: Lungs: Hyperinflation of the lungs and flattening of the hemidiaphragms are compatible with COPD. There is some interval improved aeration of the left lower lobe. Pleural spaces: There may be a small left pleural effusion. No pneumothorax. There is right apical pleural thickening. Heart/Mediastinum: Unremarkable. No cardiomegaly. Bones/joints: Unremarkable. IMPRESSION: Interval improved aeration of the left lower lobe. Suspected small left pleural effusion.
[2021-03-30 07:24] LABS: Anion Gap 12.5 mEq/L (5-15); Blood Urea Nitrogen 47 mg/dl (7-17); Calcium 7.3 mg/dl (8.4-10.2); Carbon Dioxide 19 mmol/L (22.0-30.0); Chloride 114 mmol/L (98-107); Creatinine Clearance Estimated 29 mL/min (50-200); Estimated Glomerular Filt Rate 27 ml/min (>60); GFR (African American) 33 ML/MIN (>60); Glucose 104 mg/dl (74-100); Potassium 4.5 mmoL/L (3.5-5.1); Sodium 141 mmol/L (136-145)
[2021-03-30 07:47] LABS: Basophils # 0.1 K/mm3 (0-0.2); Basophils % 0.2 % (0.1-2.0); Eosinophils # 0.1 K/mm3 (0.0-0.4); Eosinophils % 0.2 % (0.1-12.0); Hematocrit 43.9 % (37.0-47.0); Hemoglobin 13.9 g/dL (12.2-16.2); Lymphocytes # 1.4 K/mm3 (0.7-4.5); Lymphocytes % 5.2 % (10-50); Mean Corpuscular HGB Conc 31.5 g/dL (31.8-35.4); Mean Corpuscular Hemoglobin 30.5 pg (27.0-31.2); Mean Corpuscular Volume 96.6 fl (81-99); Mean Platelet Volume 12.6 fl (7.4-10.4); Monocytes # 1.5 K/mm3 (0.1-1.0); Monocytes % 5.6 % (1.7-9.3); Neutrophils # 24.3 K/mm3 (1.8-7.8); Neutrophils % 88.8 % (37.0-80.0); Platelet Count 177 K/mm3 (142-424); Red Blood Count 4.54 M/mm3 (4.20-5.40); Red Cell Distribution Width 12.7 % (11.5-17.5); White Blood Count 27.4 K/mm3 (4.8-10.8)
[2021-03-30 07:51] LABS: MANUAL DIFFERENTIAL MANUAL DIFFERENTIAL (MANUAL DIFF)
[2021-03-30 08:00] VITALS: BP 123/63; PULSE 84; RESP 18; TEMP 36.6; O2SAT 98
--- NOTE | 2021-03-30 08:00 | CA_ITS ---
APPROVED REPORT Bilateral Lower Extremity Venous Study for DVT. Clerk Of Court: Niki Clemens RVT Indications Lower Extremity Pain: Bilateral Lower Extremity Edema: Bilateral calf tenderness,SEPSIS Risk Factors CAD Vein Imaging CFV (R): compressive, spontaneous, phasic, augmentation FEM (R): compressive, spontaneous, phasic, augmentation POP (R): compressive, spontaneous, phasic, augmentation PTV (R): Compressible GSV (R): Compressible Peroneals (R):Compressible GAS (R): Compressible CFV (L): compressive, spontaneous, phasic, augmentation FEM (L): compressive, spontaneous, phasic, augmentation POP (L): compressive, spontaneous, phasic, augmentation PTV (L): Compressible GSV (L): Compressible Peroneals (L):Compressible GAS (L): Compressible Findings Study suggests no evidence of DVT or SVT of the bilateral lower extremities. Conclusion Study suggests no evidence of DVT or SVT of the bilateral lower extremities. Electronically signed by : Zack Linder MD 03/30/2021 16:46:41
--- NOTE | 2021-03-30 09:23 | XR_ITS ---
PROCEDURE: XR CHEST PORTABLE PICC PLAC CLINICAL HISTORY: Confirm PICC line placement COMPARISON: CR XR CHEST 2V from 02/01/[address] CHEST WO CON from 03/04/2021 CR XR CHEST 2V from 03/15/2021 CR XR CHEST PORTABLE from 03/30/2021 FINDINGS: Left upper extremity PICC line been placed. The tip projects superiorly at the level of the head of the clavicle on the right is in the region the right brachiocephalic vein and should be withdrawn approximately 2-3 cm. Alternatively, 1 could withdrawal the line back 1-2 cm and do a quick bolus of normal saline into the PICC line to see if the catheter flipped down into the superior vena cava. There is biapical pleural thickening right greater than left with mild left basilar atelectasis. Normal heart size. IMPRESSION: Left upper extremity PICC line malpositioned with the tip in the region the right brachiocephalic vein. Please see above for description Dictated by: Zack Linder MD 03/30/2021 12:09 Zack Linder MD in [place] 03/30/2021 12:09
[2021-03-30 09:32] LABS: Lymphocytes % 6 % (10-50); Monocytes % 7 % (2-9); Neutrophils % 87 % (42-76); Platelet Estimate Normal; Total Cells Counted 100
[2021-03-30 09:33] LABS: Hypochromasia 1+
--- NOTE | 2021-03-30 10:29 | HMH.ACPN2 ---
Internal Medicine - PN: Subj *Date: 03/30/21 *Time: 14:11 Interval history: Patient looks improved this morning, had an uneventful night by her account. Blood culture is growing out E. coli, final ID and sensitivity are pending. Urine culture is growing out a pansensitive E. coli. She has a pneumonia at her left base, is currently on Zithromax and Rocephin. The E. coli shows sensitivity to Rocephin. Preceding this admission patient was having weakness and difficulty with ambulation. She has low back pain with left radicular features. We will engage physical therapy to work with her, maintaining functionality. She denies dyspnea chest pain or abdominal pain. Has an indwelling Davis, will discontinue this today. On admission she had acute kidney injury, previous normal BUN and creatinine. Peak creatinine 2.6, on the decline, 1.8 today. She is receiving maintenance fluids. Her p.o. intake is good. Exam Vital signs and Labs for Last 24 Hours: Temp Pulse Resp BP Pulse Ox 97.8 F 84 18 123/63 98 03/30/21 08:00 03/30/21 08:00 03/30/21 08:00 03/30/21 08:00 03/30/21 08:00 Laboratory Results - last 24 hr 03/28/21 17:51: Urine Color Yellow, Urine Appearance Turbid, Urine pH 6.0, Ur Specific [place] 1.020, Urine Protein 3+, Urine Glucose (UA) Negative, Urine Ketones Negative, Urine Blood 3+, Urine Nitrate Negative, Urine Bilirubin Negative, Urine Urobilinogen 1.0, Ur Leukocyte Esterase 3+ A, Urine RBC 20-50, Urine WBC 20-50, Ur Squamous Epith Cells 5-10, Amorphous Sediment 2+, Urine Bacteria 1+, RBC Casts 3-5 03/30/21 06:48: WBC 27.4 H*, RBC 4.54, Hgb 13.9, Hct 43.9, MCV 96.6, MCH 30.5, MCHC 31.5 L, RDW 12.7, Plt Count 177, MPV 12.6 H, Neut % (Auto) 88.8 H, Lymph % (Auto) 5.2 L, [place] % (Auto) 5.6, Eos % (Auto) 0.2, Baso % (Auto) 0.2, Neut # (Auto) 24.3 H, Lymph # (Auto) 1.4, [place] # (Auto) 1.5 H, Eos # (Auto) 0.1, Baso # (Auto) 0.1, Total Counted 100, Neutrophils % (Manual) 87 H, Lymphocytes % (Manual) 6 L, Monocytes % (Manual) 7, Platelet Estimate Normal, Hypochromasia 1+ 03/30/21 06:48: Sodium 141, Potassium 4.5, Chloride 114 H, Carbon Dioxide 19 L, Anion Gap 12.5, BUN 47 H, Creatinine 1.80 H D, Estimated Creat Clear 29, Estimated GFR 27 L, Est GFR ( Amer) 33 L D, Glucose 104 H, Calcium 7.3 L I & O for Last 24 hours: Intake & Output 03/27/21 03/28/21 03/29/21 03/30/21 23:59 23:59 23:59 23:59 Intake Total 360 / 360 240 / 240 Output Total 800 / 1800 1000 / 1000 Balance -440 / -1440 -760 / -760 Weight 162 lb 160 lb 14.999 oz 160 lb 14.999 oz Microbiology Reports for the Last 24 Hours: Microbiology 03/28/21 16:25 Blood Blood Culture - Preliminary Gram Negative Rods 03/28/21 17:51 Urine,Catheterized Urine Culture - Final Escherichia coli - Constitutional no acute distress, cooperative - *Routine HEENT Exam Head: Present: normocephalic Eye: Present: EOMI, PERRL ENT: Present: mucous membranes moist - *Routine Neck Exam Present: supple. Absent: lymphadenopathy - *Routine Respiratory Exam Present: crackles - *Routine Cardiovascular Exam Present: RRR - *Routine Abdominal Exam Present: soft, normoactive bowel sounds. Absent: tenderness - *Routine Extremities Exam Present: edema, calf tenderness, tenderness, joint swelling. Absent: pallor, extremity cold to touch - *Routine Skin Exam Present: wounds. Absent: jaundice - *Routine Neurological Exam Present: alert, oriented X3, vision grossly intact, hearing grossly intact. Absent: altered mental status Assessment and Plan (1) Acute kidney injury Status: Acute Category: Medical Code(s): N17.9 - Acute kidney failure, unspecified (2) Community acquired pneumonia Status: Acute Qualifiers: Laterality: left Lung location: lower lobe of lung Qualified Code(s): J18.9 - Pneumonia, unspecified organism Category: Medical Code(s): J18.9 - Pneumonia, un
--- NOTE | 2021-03-30 11:07 | HMH.PTEV ---
Physical Therapy Evaluation Rehab PT IP Evaluation Start: 03/29/21 19:50 Freq: ONCE Status: Active Protocol: Document 03/30/21 10:58 PHORBREA (Rec: 03/30/21 11:07 PHORNE [id number]) Subjective/History History History Pt is 80 year old female admitted to [facility] for weakness secondary to CAP and UTI. Pt reports living in one level home with a few steps to enter . Pt reports no prior use of AD or difficulty ambulating before admittance to [facility]. Eval completed by CLINT Enriquez. Subjective Subjective Pt reports feeling weak but well other than that. Rehab PT IP Eval Objective Appearance Patient Behavior Appropriate,Cooperative Patient Orientation Place,Name,Birthday,Year Difficulty following instructions none Speech Pattern Clear,Appropriate,Coherent Ambulation Patient Able to Ambulate No Balance Ability to Arise Able, uses arms to help Sitting Balance Steady, safe Standing Balance Steady, wide stance Dynamic Sitting Balance Ability Good Dynamic Standing Balance Ability Fair Transfers Bed Transfer Ability Contact Guard/Hand Hold Sit to Stand Bed Transfer Ability Minimal x 1 (25% assist) ROM All Extremities PT ROM Status WFL MMT All Extremities PT MMT WFL Rehab PT IP prob,goals,plan Problems Date of Evaluation: 03/30/21 PT IP Problems Transfers,Gait,Balance,Safety Rehab Potential Rehab Potential Good Equipment Needs Assistive Devices Rolling / Wheeled Walker Plan PT Intervention Plan Transfers,Gait,Balance,Safety, Therapeutic Exercise PT Plan Frequency BID Duration LOS Discharge Goals Bed Transfer Ability Contact Guard/Hand Hold Sit to Stand Chair Transfer Ability Contact Guard/Hand Hold Ambulation Assistive Device Rolling Walker Ambulation Distance (feet) 5 Discharge Plan PT Discharge Plan Pt would benefit from short stay in SNF to improve pt's strength, mobility, and return to PLOF. Without skilled therapy, pt is at risk for falls, fractures, and medical decline. If pt returns home, home health PT and 24 hour
--- NOTE | 2021-03-30 11:07 | HMH.OTEV ---
OT Inpatient Evaluation Rehab OT IP Evaluation Start: 03/30/21 09:25 Freq: ONCE Status: Complete Protocol: Document 03/30/21 10:56 ALESHAMURALI (Rec: 03/30/21 11:07 SONA [id number]) Rehab OT IP Assessment Subjective History Patient is a 80-year-old white female, well known to me. She presented to the emergency room with mental status changes, confusion, lethargy, and generalized weakness.Her work-up included a CT of the brain which was unremarkable. 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 Urinalysis showed leukocytes, preliminary culture showing gram-negative rods. Blood culture shows E. coli. Patient is admitted for further valuation and treatment. He is currently on a azithromycin and Rocephin. Patient has a longstanding history of chronic pain, fibromyalgia. He had recently been seen with exacerbation of low back pain and difficulty with ambulation. She denies recent falls. Elevated creatinine was noted, consistent with acute kidney injury. Patient has what appears to be a flap laceration, right posterior calf. [facility] History Medical History: Reports:: Hyperlipidemia Patient lives in 1 story home with 2-3 [place]. Patient verbalize being independent with all ADLs and fx'l mobility prior to hospitalization. Patient verbalize to use RW occasionally. Subjective I can get up. Instructed Patient on proper hand/foot placement to complete supine->sit @ EOB transfer requiring Mod A.
--- NOTE | 2021-03-30 12:40 | XR_ITS ---
PROCEDURE: XR CHEST PORTABLE PICC PLAC CLINICAL HISTORY: picc repositioned COMPARISON: CT CT CHEST WO CON from 03/04/2021 CR XR CHEST 2V from 03/15/2021 CR XR CHEST PORTABLE from 03/30/2021 CR XR CHEST PORTABLE PICC PLAC from 03/30/2021 FINDINGS: Left upper extremity PICC line tip remains in the region the right brachiocephalic vein projected superiorly. Suggest withdrawing catheter proximally 3.5 cm. Biapical pleural thickening noted with atelectatic changes in the left lower lobe. No acute bony abnormalities. IMPRESSION: PICC line tip remains malpositioned in the right brachiocephalic vein region Dictated by: Zack Linder MD 03/30/2021 13:16 Zack Linder MD in [place] 03/30/2021 13:16
--- NOTE | 2021-03-30 13:39 | XR_ITS ---
PROCEDURE: XR CHEST PORTABLE CLINICAL HISTORY: REPOSITIONED COMPARISON: CT CT CHEST WO CON from 03/04/2021 CR XR CHEST PORTABLE from 03/30/2021 CR XR CHEST PORTABLE PICC PLAC from 03/30/2021 CR XR CHEST PORTABLE PICC PLAC from 03/30/2021 FINDINGS: Left upper extremity PICC line is in the region of the SVC. Good position. No change in the left basilar atelectasis and chronic biapical pleural thickening. No acute bony abnormalities. IMPRESSION: PICC line in good position Dictated by: Zack Linder MD 03/30/2021 13:56 Zack Linder MD in [place] 03/30/2021 13:56
--- NOTE | 2021-03-30 13:56 | SW/DCPLANNER ---
Addendum entered by Harriet Onawa 03/31/21 10:09: [facility] bus will transport this patient at 2PM today. Addendum entered by [facility] 03/31/21 10:00: Per Mary patient has been accepted to [facility] for today. I will follow up with Mary regarding bus transportation and Mary has stated that patient will be required to have another COVID swab prior to admission. Patient will discharge to [facility] later today. Addendum entered by Harriet Onawa 03/31/21 07:04: Mary with [facility] has stated that she will be doing an on site visit this AM. Original Note: I spoke with this patient and her regarding discharge plans. Patient will need [facility] at time of discharge and PT/OT has recommended SNF level of care at time of discharge. Patient and are both agreeable with [facility]. I have faxed patient information to Mary at [facility]. I will follow up with Mary once patient information is reviewed. Discharge date is unknown at this time.
[2021-03-30 16:00] VITALS: BP 113/57; PULSE 63; RESP 16; TEMP 36.6; O2SAT 91
[2021-03-30 20:00] VITALS: O2SAT 94
[2021-03-30 20:20] VITALS: BP 121/56; PULSE 81; RESP 18; TEMP 36.4; O2SAT 96
[2021-03-31] VITALS: BP 118/64; PULSE 72; RESP 14; TEMP 36.6; O2SAT 97
[2021-03-31 03:57] VITALS: BP 121/69; PULSE 76; RESP 16; TEMP 36.6; O2SAT 93
--- NOTE | 2021-03-31 04:35 | PC.NURSE ---
Shift summary. Pt has had 1x complaint at beginning of shift of pain in BLE. Pt was tx per SEP and reported pain relief. Pt did have 1x episode of confusion but was easy to reorient and has otherwise been a+o x4. Pt currently resting in bed. Call light within reach. Will continue to monitor.
[2021-03-31 05:17] VITALS: BMI 27.4
[2021-03-31 07:00] LABS: Basophils # 0.1 K/mm3 (0-0.2); Basophils % 0.4 % (0.1-2.0); Eosinophils # 0.1 K/mm3 (0.0-0.4); Eosinophils % 0.4 % (0.1-12.0); Hematocrit 35.3 % (37.0-47.0); Lymphocytes # 1.7 K/mm3 (0.7-4.5); Lymphocytes % 10.2 % (10-50); Mean Corpuscular Hemoglobin 30.7 pg (27.0-31.2); Mean Corpuscular Volume 96.1 fl (81-99); Mean Platelet Volume 11.4 fl (7.4-10.4); Platelet Count 238 K/mm3 (142-424); Red Blood Count 3.67 M/mm3 (4.20-5.40); Red Cell Distribution Width 12.8 % (11.5-17.5); White Blood Count 16.8 K/mm3 (4.8-10.8)
[2021-03-31 07:12] LABS: Anion Gap 11.7 mEq/L (5-15); Blood Urea Nitrogen 35 mg/dl (7-17); Calcium 7.8 mg/dl (8.4-10.2); Carbon Dioxide 22 mmol/L (22.0-30.0); Chloride 114 mmol/L (98-107); Creatinine Clearance Estimated 33 mL/min (50-200); Estimated Glomerular Filt Rate 31 ml/min (>60); GFR (African American) 38 ML/MIN (>60); Glucose 83 mg/dl (74-100); Potassium 3.7 mmoL/L (3.5-5.1); Sodium 144 mmol/L (136-145)
[2021-03-31 07:29] LABS: MANUAL DIFFERENTIAL MANUAL DIFFERENTIAL (MANUAL DIFF)
[2021-03-31 07:41] LABS: Hemoglobin 11.3 g/dL (12.2-16.2)
[2021-03-31 08:00] VITALS: BP 120/75; PULSE 87; RESP 20; TEMP 36.6; O2SAT 82
[2021-03-31 11:03] LABS: Coronavirus 19, PCR Not Detected (NotDetected); Influenza A, PCR Not Detected (NotDetected); Influenza B, PCR Not Detected (NotDetected)
--- NOTE | 2021-03-31 12:49 | HMH.DCSUM ---
General - General Admission date:: 03/29/21 Discharge date: 03/31/21 HPI HPI: Patient is a 80-year-old white female, well known to me. She presented to the emergency room with mental status changes, confusion, lethargy, and generalized weakness. Her work-up included a CT of the brain which was unremarkable. 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 Urinalysis showed leukocytes, preliminary culture showing gram-negative rods. Blood culture shows E. coli. Patient is admitted for further valuation and treatment. He is currently on a azithromycin and Rocephin. Patient has a longstanding history of chronic pain, fibromyalgia. He had recently been seen with exacerbation of low back pain and difficulty with ambulation. She denies recent falls. Elevated creatinine was noted, consistent with acute kidney injury. Patient has what appears to be a flap laceration, right posterior calf. Hospital Course Hospital Course: Ordering Physician: Rell Beckford MD Date of Service: 03/28/21 Procedure(s): XR chest portable Accession Number(s): [id number] cc: Doyle Duran MD; Itz Urbano MD~ PROCEDURE INFORMATION: Exam: XR Chest Exam date and time: 03/28/2021 4:17 PM Age: 80 years old Clinical indication: Other: Lethargy TECHNIQUE: Imaging protocol: XR of the chest. Views: 1 view. COMPARISON: CR XR CHEST 2V 03/15/2021 2:39 PM FINDINGS: Lungs: Streaky left basilar opacities. Pleural spaces: Unremarkable. No pleural effusion. No pneumothorax. Heart/Mediastinum: Mild cardiac enlargement. Bones/joints: Unremarkable. Other findings: Small left effusion suspected. IMPRESSION: Findings concerning for left basilar pneumonia Laboratory Tests 03/28/21 03/28/21 03/28/21 16:25 16:25 16:25 WBC 20.8 H* RBC 4.48 Hgb 13.7 Hct 42.4 MCV 94.8 MCH 30.5 MCHC 32.2 RDW 12.3 Plt Count 189 MPV 10.9 H Neut % (Auto) 92.6 H Lymph % (Auto) 2.6 L [place] % (Auto) 3.5 Eos % (Auto) 1.0 Baso % (Auto) 0.3 Neut # (Auto) 19.2 H Lymph # (Auto) 0.5 L [place] # (Auto) 0.7 Eos # (Auto) 0.2 Baso # (Auto) 0.1 Total Counted 100 Neutrophils % (Manual) 82 H Lymphocytes % (Manual) 12 Monocytes % (Manual) 6 Platelet Estimate Normal RBC Morphology Normal Hypochromasia Sodium 135 L Potassium 4.4 Chloride 104 Carbon Dioxide 24 Anion Gap 11.4 BUN 57 H Creatinine 2.60 H Estimated Creat Clear 20 Estimated GFR 18 L* Est GFR ( Amer) 21 L Glucose 117 H Lactate 1.4 Calcium 8.1 L Total Bilirubin 0.9 AST 111 H ALT 38 Alkaline Phosphatase 115 Total Protein 6.1 L Albumin 3.2 L Globulin 2.9 Albumin/Globulin Ratio 1.1 Urine Color Urine Appearance Urine pH Ur Specific [place] Urine Protein Urine Glucose (UA) Urine Ketones Urine Blood Urine Nitrate Urine Bilirubin Urine Urobilinogen Ur Leukocyte Esterase Urine RBC Urine WBC Ur Squamous Epith Cells Amorphous Sediment Urine Bacteria RBC Casts SARS-CoV-2 (PCR) Influenza A Untype (PCR) Influenza Type B (PCR) 03/28/21 03/28/21 03/29/21 16:25 17:51 04:30 WBC 34.9 H* D RBC 4.09 L Hgb 12.4 Hct 40.6 MCV 99.1 H MCH 29.9 MCHC 30.2 L RDW 12.4 Plt Count 153 MPV 12.2 H Neut % (Auto) 88.6 H Lymph % (Auto) 4.6 L [place] % (Auto) 6.1 Eos % (Auto) 0.0 L Baso % (Auto) 0.5 Neut # (Auto) 30.9 H Lymph # (Auto) 1.6 [place] # (Auto) 2.2 H Eos # (Auto) 0.0 Baso # (Auto) 0.2 Total Counted 100 Neutrophils % (Manual) 93 H Lymphocytes % (Manual) 1 L Monocytes % (Manual) 6 Platelet Estimate Normal RBC Morphology Not Reportable Hypochromasia 1+ Sodium Potassium Chloride Carbon Dioxide Anion Gap BUN Creatinine Estimated Creat C
[2021-03-31 15:14] LABS: Corrected White Blood Count 15.6 K/mm3 (4.8-10.8); Lymphocytes % 10 % (10-50); Monocytes % 5 % (2-9); Myelocytes % 2 (0-1); Neutrophils % 82 % (42-76); Nucleated Red Blood Cells 8; Platelet Estimate Normal; Total Cells Counted 100
[2021-03-31 15:15] LABS: Acanthocytes 1+
== END 2021-03-31 14:00 | DRG 871 ==
LOC: ER 18:00 → 2ND 03-29 07:23
PROVIDERS: Nurse Practitioner Family; Admitting Provider Family Medicine; Emergency Provider Emergency Medicine; PCP Family Medicine; Visit Provider Family Medicine
DX: A41.51 Sepsis due to Escherichia coli [E. coli] (principal); J18.9 Pneumonia, unspecified organism; N39.0 Urinary tract infection, site not specified; N17.9 Acute kidney failure, unspecified; Z20.822 Contact with and (suspected) exposure to COVID-19; M79.7 Fibromyalgia; E86.0 Dehydration; M81.0 Age-related osteoporosis without current pathological fracture; G40.909 Epilepsy, unspecified, not intractable, without status epilepticus; E78.5 Hyperlipidemia, unspecified
CPT/HCPCS: 36569; 36415; 70450; 71045; 80048; 80053; 81001; 83605; 85007; 85025; 87040; 87077; 87086; 87088; 87186; 93005; 93970; 94761; 96365; 96367; 97116; 97162; 97165; 97530; 99285; C1751; C9803; J0456; U0003; U0005

== ENCOUNTER → 2021-04-26 13:47 | Outpatient (CLI) | payer MEDICARE, SELFPAY | PROVIDERS: Visit Provider Family Medicine | DX: A41.9 Sepsis, unspecified organism (principal); N39.0 Urinary tract infection, site not specified; A41.51 Sepsis due to Escherichia coli [E. coli] | CPT/HCPCS: 87086 ==

== ENCOUNTER 2021-05-10 14:24 | Emergency (ER) | payer MEDICARE, SELFPAY ==
[2021-05-10 14:25] VITALS: BP 164/77; PULSE 76; RESP 18; TEMP 37.2; O2SAT 96; BMI 23.3
--- NOTE | 2021-05-10 14:43 | XR_ITS ---
PROCEDURE INFORMATION: Exam: XR Right Hip Exam date and time: 05/10/2021 2:43 PM Age: 80 years old Clinical indication: Injury or trauma; Fall; Blunt trauma (contusions or hematomas); Pelvic region; Injury date: 05/10/21; Injury details: Fell and hit right hip -- fracture seen on rami; Additional info: Fall/pain TECHNIQUE: Imaging protocol: XR Right hip. Views: 2 or 3 views hip with pelvis when performed. COMPARISON: CR XR LUMBAR SPINE MIN 4V 03/25/2021 10:02 AM FINDINGS: Bones/joints: There is a fracture of the right superior pubic ramus present. There is no evidence of joint malalignment or dislocation. Degenerative changes of the right hip present. Sclerotic density overlies both iliac bones. Soft tissues: No focal soft tissue swelling. IMPRESSION: 1. There is a fracture of the right superior pubic ramus present. 2. No evidence of acute dislocation. 3. Degenerative changes of the right hip present.
--- NOTE | 2021-05-10 15:13 | HMH.EDFALL ---
ED Disposition Clinical Impression: Fracture of superior ramus of right pubis Qualifiers: Encounter type: initial encounter Fracture type: closed Qualified Code(s): S32.511A - Fracture of superior rim of right pubis, initial encounter for closed fracture Disposition: Home Health Service Condition on Discharge: Good Instructions: DI for Pelvic Fracture Prescriptions: Hydrocod/Acet 5/325 mg [[place] 5/325mg tablet] 1 tab PO Q6HP PRN #10 tab PRN Reason: Moderate Pain Transmission Status: Pending to [facility] Referrals: Itz Urbano MD [Primary Care Provider] - Gatito Cordero MD [Staff Physician] - - Critical Care Critical Care Time: No Attestation: On 05/10/21, the high probability of a clinically significant, sudden or life threatening deterioration of the following system(s) required my full and direct attention, intervention and personal management. The time I documented below is in addition to time spent performing reported procedures but includes the following listed in this critical care notation. Medical Decision Making - Medical Records Medical records reviewed: Yes: I reviewed the patient's medical records. - Josef Inquiry Pt receiving controlled substance: No Vital Signs: 05/10/21 14:25 Temperature 98.9 F Temperature Source Oral Pulse Rate [Left Radial] 76 Respiratory Rate 18 Blood Pressure [Right Arm] 164/77 H Blood Pressure Mean [Right Arm] 106 Blood Pressure Source [Right Arm] Automatic Cuff Blood Pressure Position [Right Arm] Sitting 02 Sat by Pulse Oximetry 96 Oxygen Delivery Method Room Air Orders (Tests/Meds): ED MEDICATIONS Discontinued Medications Generic Name Dose Route Start Last Admin Trade Name Freq PRN Reason Stop Dose Admin Hydrocodone Bitart/Acetaminophen 1 tab 05/10/21 14:53 05/10/21 15:20 Hydrocodone/Apap 5/325 Mg Tablet PO 05/10/21 14:54 1 tab ONCE ONE Administration - Radiology Data #1 Image(s): Hip Image Reviewed: Yes I reviewed the patient's radiology results, Yes I reviewed the patient's radiology image, Yes I have reviewed radiologist's interpretation IMPRESSION: 1. There is a fracture of the right superior pubic ramus present. 2. No evidence of acute dislocation. 3. Degenerative changes of the right hip present. - Reevaluation(s) Time: 16:00 Reevaluation #1: On reevaluation, patient's pain is improved. She does have evidence of a superior ramus fracture on the right side. There is no evidence of hip fracture. Patient's range of motion is slightly improved after pain medications. Patient will follow up with orthopedic surgery. She was given strict return precautions. Verbalized understanding. Medical Decision Narrative: 80-year-old female presenting after an accidental fall. Patient claims right hip pain. Imaging will be obtained. Fall HPI - General Chief Complaint: Fall Stated Complaint: fall 05/10 hip pain Time Seen by Provider: 05/10/21 14:30 Mode of Arrival: Wheelchair Limitations: No Limitations Description of Symptoms (Recalled from ER Triage Doc. by RN): c/o right hip pain after falling off the steps. STates she was on the second step when she went to step back and fell. Denies any other injuries at this time. - History of Present Illness HPI Narrative: This is a 80-year-old female presented to the emergency department with some right hip pain. The patient states that she was on a small step stool and she accidentally fell over. She landed onto her right side. He complaining of some dull pain in her right hip. Is worse when she moves. She was able to ambulate and bear weight, however it is slightly painful. She did not sustain any trauma to the head or neck. There is no loss of consciousness. Patient denies any associated chest pain shortness of breath. No abdominal pain or vomiting. No diarrhea. No focal weakness or change in vision. - Related Data Home Medications Medi
[2021-05-10 15:30] VITALS: BP 129/61; PULSE 70; O2SAT 94
[2021-05-10 16:00] VITALS: BP 132/64; PULSE 68; O2SAT 93
[2021-05-10 16:45] VITALS: BP 132/64; PULSE 67; RESP 18; TEMP 37.2; O2SAT 94
== END 2021-05-10 16:46 | disposition home health service (06) ==
PROVIDERS: Emergency Provider Emergency Medicine; PCP Family Medicine
DX: S32.511A Fracture of superior rim of right pubis, initial encounter for closed fracture (principal); W17.89XA Other fall from one level to another, initial encounter; Y92.019 Unspecified place in single-family (private) house as the place of occurrence of the external cause; E78.5 Hyperlipidemia, unspecified; Z79.899 Other long term (current) drug therapy
CPT/HCPCS: 73502; 99282

== ENCOUNTER → 2021-05-19 14:22 | Outpatient (CLI) | payer MEDICARE, SELFPAY ==
--- NOTE | 2021-05-19 14:27 | XR_ITS ---
PROCEDURE: XR HIP RT 2-3V W/PELVIS CLINICAL INDICATION: RT pubic rami fx COMPARISON: CR XR HIP RT 2-3V W/PELVIS from 05/10/2021 FINDINGS: Nondisplaced fracture involves the right superior pubic ramus at its junction with the ischial M. this is not significantly changed. Minimal osteoarthritic changes are present in the right hip. Sclerotic focus is noted along the lateral aspect the ilium on both sides unchanged IMPRESSION: No change nondisplaced fracture right superior pubic ramus Dictated by: Zack Linder MD 05/19/2021 15:11 Zack Linder MD in [place] 05/19/2021 15:11
== END ==
PROVIDERS: PCP Family Medicine; Visit Provider Orthopaedic Surgery
DX: S32.511A Fracture of superior rim of right pubis, initial encounter for closed fracture (principal)
CPT/HCPCS: 73502

== ENCOUNTER → 2021-05-25 13:39 | Outpatient (CLI) | payer MEDICARE, SELFPAY ==
[2021-05-25 14:17] LABS: Basophils # 0.2 K/mm3 (0-0.2); Basophils % 1.7 % (0.1-2.0); Eosinophils # 0.1 K/mm3 (0.0-0.4); Eosinophils % 1.2 % (0.1-12.0); Hematocrit 48.9 % (37.0-47.0); Lymphocytes # 1.6 K/mm3 (0.7-4.5); Lymphocytes % 17.7 % (10-50); Mean Corpuscular HGB Conc 30.7 g/dL (31.8-35.4); Mean Platelet Volume 9.8 fl (7.4-10.4); Monocytes # 0.5 K/mm3 (0.1-1.0); Monocytes % 5.9 % (1.7-9.3); Neutrophils # 6.5 K/mm3 (1.8-7.8); Neutrophils % 73.5 % (37.0-80.0); Platelet Count 306 K/mm3 (142-424); Red Blood Count 4.99 M/mm3 (4.20-5.40); Red Cell Distribution Width 14.9 % (11.5-17.5); White Blood Count 8.8 K/mm3 (4.8-10.8)
[2021-05-25 15:07] LABS: Alanine Aminotransferase 23 U/L (12-78); Anion Gap 12.6 mEq/L (5-15); Aspartate Amino Transferase 39 U/L (14-36); Bilirubin,Total 0.5 mg/dl (0.2-1.3); Blood Urea Nitrogen 16 mg/dl (7-17); Calcium 9.4 mg/dl (8.4-10.2); Carbon Dioxide 30 mmol/L (22.0-30.0); Chloride 103 mmol/L (98-107); Estimated Glomerular Filt Rate 60 ml/min (>60); GFR (African American) 73 ML/MIN (>60); Glucose 86 mg/dl (74-100); Magnesium 1.6 mg/dl (1.6-2.3); Potassium 3.6 mmoL/L (3.5-5.1); Sodium 142 mmol/L (136-145); Total Protein,Serum 6.5 g/dl (6.3-8.2)
[2021-05-25 15:08] LABS: Albumin Level 3.9 g/dl (3.5-5.0); Albumin/Globulin Ratio 1.5 (1.1-1.8); Alkaline Phosphatase 242 U/L (38-126); Globulin 2.6 g/dL (1.3-3.2)
== END ==
PROVIDERS: Visit Provider Family Medicine
DX: R53.83 Other fatigue (principal); M54.16 Radiculopathy, lumbar region
CPT/HCPCS: 80053; 83735; 85025

== ENCOUNTER → 2021-06-02 12:34 | Outpatient (CLI) | payer MEDICARE, SELFPAY ==
--- NOTE | 2021-06-02 12:38 | XR_ITS ---
PROCEDURE: XR HIP RT 2-3V W/PELVIS CLINICAL INDICATION: RT pubic rami fx COMPARISON: CR XR HIP RT 2-3V W/PELVIS from 05/19/2021 FINDINGS: Right superior pubic ramus fracture line is less apparent consistent with healing. There is some increased vertical density with sub adjacent lucency in the mid aspect of the inferior pubic ramus which could also be related to a nondisplaced healing fracture. Sclerotic foci noted over both iliac crests laterally. IMPRESSION: Healing right superior and inferior pubic ramus fracture Dictated by: Zack Linder MD 06/02/2021 18:45 Zack Linder MD in [facility] 06/02/2021 18:45
== END ==
PROVIDERS: PCP Family Medicine; Visit Provider Orthopaedic Surgery
DX: S32.591D Other specified fracture of right pubis, subsequent encounter for fracture with routine healing (principal)
CPT/HCPCS: 73502

== ENCOUNTER → 2021-06-23 13:04 | Outpatient (CLI) | payer MEDICARE, SELFPAY ==
--- NOTE | 2021-06-23 13:09 | XR_ITS ---
PROCEDURE: XR HIP RT 2-3V W/PELVIS CLINICAL INDICATION: right pubic rami fracture COMPARISON: CR XR HIP RT 2-3V W/PELVIS from 05/10/2021 CR XR HIP RT 2-3V W/PELVIS from 06/02/2021 FINDINGS: There is a healing fracture involving the junction of the right ischium with the superior pubic ramus. Fracture line appears somewhat less distinct in there is developing callus formation. In addition, there is an area of sclerosis now noted along the right paramedian aspect of the sacrum suggesting a healing sacral fracture extending cephalad caudad. This is medial to the SI joint. Healing right inferior pubic ramus fracture also noted. IMPRESSION: Healing right superior and inferior pubic rami fractures also with suspected healing right sacral fracture. Dictated by: Zack Linder MD 06/23/2021 15:22 Zack Linder MD in [facility] 06/23/2021 15:22
== END ==
PROVIDERS: PCP Family Medicine; Visit Provider Orthopaedic Surgery
DX: S32.511A Fracture of superior rim of right pubis, initial encounter for closed fracture (principal)
CPT/HCPCS: 73502

== ENCOUNTER → 2021-06-28 14:14 | Outpatient (CLI) | payer MEDICARE, SELFPAY | PROVIDERS: Visit Provider Family Medicine | DX: A41.9 Sepsis, unspecified organism (principal) | CPT/HCPCS: 87086 ==

== ENCOUNTER 2021-08-03 20:00 | Emergency (ER) | payer MEDICARE, SELFPAY ==
[2021-08-03 20:02] VITALS: BP 207/88; PULSE 87; RESP 18; TEMP 36.8; O2SAT 96; BMI 24.7
--- NOTE | 2021-08-03 22:31 | CT_ITS ---
PROCEDURE INFORMATION: Exam: CT Abdomen And Pelvis With Contrast Exam date and time: 08/03/2021 10:31 PM Age: 80 years old Clinical indication: Abdominal pain; Generalized; Additional info: Abd pain TECHNIQUE: Imaging protocol: Computed tomography of the abdomen and pelvis with contrast. Radiation optimization: All CT scans at this facility use at least one of these dose optimization techniques: automated exposure control; mA and/or kV adjustment per patient size (includes targeted exams where dose is matched to clinical indication); or iterative reconstruction. Contrast material: ISOVUE; Contrast volume: 75 ml; Contrast route: IV; COMPARISON: CR XR HIP RT 2-3V W/PELVIS 06/23/2021 1:59 PM FINDINGS: Lungs: Scarring in the lung bases. Heart: Cardiomegaly. Liver: Fatty liver. Gallbladder and bile ducts: Normal. No calcified stones. No ductal dilation. Pancreas: Normal. No ductal dilation. Spleen: Normal. No splenomegaly. Adrenal glands: Normal. No mass. Kidneys and ureters: Tiny cysts in the left kidney. No hydronephrosis. Stomach and bowel: Diverticulosis in the sigmoid without diverticulitis. No colitis. No small bowel obstruction. Appendix: No evidence of appendicitis. Intraperitoneal space: Unremarkable. No free air. No significant fluid collection. Vasculature: Unremarkable. No abdominal aortic aneurysm. Lymph nodes: Unremarkable. No enlarged lymph nodes. Urinary bladder: Urinary bladder wall thickening and subtle infiltration of the surrounding fat could indicate cystitis. Reproductive: Unremarkable as visualized. Bones/joints: Unremarkable. No acute fracture. Soft tissues: Unremarkable. IMPRESSION: 1. Cystitis. 2. Small hiatal hernia. 3. No colitis or small bowel obstruction.
[2021-08-03 23:15] LABS: Basophils # 0.1 K/mm3 (0-0.2); Basophils % 0.5 % (0.1-2.0); Eosinophils % 0.1 % (0.1-12.0); Hematocrit 46.3 % (37.0-47.0); Hemoglobin 14.3 g/dL (12.2-16.2); Lymphocytes # 1.2 K/mm3 (0.7-4.5); Mean Corpuscular HGB Conc 30.9 g/dL (31.8-35.4); Mean Corpuscular Hemoglobin 29.7 pg (27.0-31.2); Mean Platelet Volume 9.6 fl (7.4-10.4); Monocytes # 0.4 K/mm3 (0.1-1.0); Monocytes % 4.5 % (1.7-9.3); Neutrophils # 7.4 K/mm3 (1.8-7.8); Neutrophils % 81.9 % (37.0-80.0); Platelet Count 307 K/mm3 (142-424); Red Blood Count 4.82 M/mm3 (4.20-5.40); Red Cell Distribution Width 14.6 % (11.5-17.5)
[2021-08-03 23:19] LABS: Microscopic, Urine URINE MICROSCOPIC (MICROSCOPIC)
[2021-08-03 23:24] LABS: Alanine Aminotransferase 24 U/L (12-78); Albumin Level 4.4 g/dl (3.5-5.0); Albumin/Globulin Ratio 1.6 (1.1-1.8); Alkaline Phosphatase 95 U/L (38-126); Anion Gap 13.6 mEq/L (5-15); Aspartate Amino Transferase 38 U/L (14-36); Bilirubin,Total 0.5 mg/dl (0.2-1.3); Blood Urea Nitrogen 11 mg/dl (7-17); Calcium 10.5 mg/dl (8.4-10.2); Carbon Dioxide 23 mmol/L (22.0-30.0); Chloride 106 mmol/L (98-107); Creatinine Clearance Estimated 46 mL/min (50-200); Estimated Glomerular Filt Rate 69 ml/min (>60); GFR (African American) 84 ML/MIN (>60); Globulin 2.8 g/dL (1.3-3.2); Glucose 107 mg/dl (74-100); Lactic Acid 0.9 mmol/L (0.7-2.1); Lipase 82 U/L (23-300); Potassium 3.6 mmoL/L (3.5-5.1); Sodium 139 mmol/L (136-145); Total Protein,Serum 7.2 g/dl (6.3-8.2)
[2021-08-03 23:25] LABS: Amylase 65 U/L (30-110)
[2021-08-03 23:26] LABS: Appearance,Urine CLEAR (Clear); Bilirubin,Urine Negative (Negative); Blood, Urine Negative (Negative); Color,Urine YELLOW (Yellow); Glucose,Urine (UA) Negative (Negative); Ketones,Urine 3+ (Negative); Leukocyte Esterase,Urine Negative (Negative); Nitrate,Urine Negative (Negative); Protein,Urine TRACE (Negative); Urobilinogen,Urine 0.2 EU/dl (0.2)
[2021-08-03 23:29] LABS: C-Reactive Protein 10.9 mg/L (0-4)
--- NOTE | 2021-08-03 23:33 | HMH.EDNVD ---
ED Disposition Clinical Impression: UTI (urinary tract infection) Qualifiers: Urinary tract infection type: site unspecified Hematuria presence: without hematuria Qualified Code(s): N39.0 - Urinary tract infection, site not specified Disposition: Home, Self-Care Condition on Discharge: Good Instructions: DI for Urinary Tract Infection (UTI) Additional Instructions: fluids and use meds and call pcp for follow up Prescriptions: levoFLOXacin [Levaquin 500mg tab] 500 mg PO DAILY #7 tab Transmission Status: Pending to [facility] Referrals: Itz Urbano MD [Primary Care Provider] - - Critical Care Critical Care Time: No Attestation: On 08/03/21, the high probability of a clinically significant, sudden or life threatening deterioration of the following system(s) required my full and direct attention, intervention and personal management. The time I documented below is in addition to time spent performing reported procedures but includes the following listed in this critical care notation. Medical Decision Making - Medical Records Medical records reviewed: Yes: I reviewed the patient's medical records. - Jsoef Inquiry Pt receiving controlled substance: No Vital Signs: 08/03/21 20:02 Temperature 98.3 F Temperature Source Oral Pulse Rate [Right] 87 Respiratory Rate 18 Blood Pressure [Right Arm] 207/88 H Blood Pressure Mean [Right Arm] 127 02 Sat by Pulse Oximetry 96 - Lab Data Lab results reviewed: Yes: I reviewed the patient's lab results. Lab Results 08/03/21 22:06: Urine Color Yellow, Urine Appearance Clear, Urine pH 6.0, Ur Specific [place] 1.020, Urine Protein Trace, Urine Glucose (UA) Negative, Urine Ketones 3+, Urine Blood Negative, Urine Nitrate Negative, Urine Bilirubin Negative, Urine Urobilinogen 0.2, Ur Leukocyte Esterase Negative, Urine RBC 3-5, Urine WBC 3-5, Ur Squamous Epith Cells 3-5, Urine Bacteria 1+, Urine Mucus 1+ 08/03/21 22:54: WBC 9.0, RBC 4.82, Hgb 14.3, Hct 46.3, MCV 96.0, MCH 29.7, MCHC 30.9 L, RDW 14.6, Plt Count 307, MPV 9.6, Neut % (Auto) 81.9 H, Lymph % (Auto) 13.0, [place] % (Auto) 4.5, Eos % (Auto) 0.1, Baso % (Auto) 0.5, Neut # (Auto) 7.4, Lymph # (Auto) 1.2, [place] # (Auto) 0.4, Eos # (Auto) 0.0, Baso # (Auto) 0.1, ESR 22 08/03/21 22:54: Sodium 139, Potassium 3.6, Chloride 106, Carbon Dioxide 23, Anion Gap 13.6, BUN 11, Creatinine 0.80, Estimated Creat Clear 46, Estimated GFR 69, Est GFR ( Amer) 84, Glucose 107 H, Calcium 10.5 H, Total Bilirubin 0.5, AST 38 H, ALT 24, Alkaline Phosphatase 95, C-Reactive Protein 10.9 H, Total Protein 7.2, Albumin 4.4, Globulin 2.8, Albumin/Globulin Ratio 1.6 08/03/21 22:54: Amylase 65, Procalcitonin 0.063 08/03/21 22:54: Lipase 82 08/03/21 22:54: Lactate 0.9 Result diagrams: 08/03/21 22:54 08/03/21 22:54 Orders (Tests/Meds): ED MEDICATIONS Generic Name Dose Route Start Last Admin Trade Name Freq PRN Reason Stop Dose Admin Sodium Chloride 1,000 mls @ 999 mls/hr 08/03/21 22:45 08/03/21 23:19 Sod Chlor 0.9% 1000ml Bag IV 08/03/21 23:45 999 mls/hr .Q1H1M QUINCY Administration Discontinued Medications Generic Name Dose Route Start Last Admin Trade Name Freq PRN Reason Stop Dose Admin Iopamidol 75 ml 08/03/21 23:52 08/03/21 23:53 Iopamidol-370 (76%);100ml Bottle IV 08/03/21 23:53 75 ml ONCE ONE Administration Ketorolac Tromethamine 30 mg 08/03/21 22:32 08/03/21 23:19 Ketorolac 30mg/Ml Vial IV 08/03/21 22:33 30 mg ONCE ONE Administration Ondansetron HCl 4 mg 08/03/21 22:32 08/03/21 23:18 Ondansetron 4mg/2ml Vial IV 08/03/21 22:33 4 mg ONCE ONE Administration Sodium Chloride 10 ml 08/03/21 23:52 08/03/21 23:53 Sodium Chloride 0.9% 10ml Syr (Rad Only) IV 08/03/21 23:53 10 ml ONCE ONE Administration ORDERS Category Date Time Status Blood Culture Stat Micro 08/03/21 22:54 Received Urine Culture Stat Micro 08/04/21 00:49 Ordered - CT Data CT Scan:
[2021-08-03 23:36] LABS: Bacteria,Urine 1+ /lpf; Mucus,Urine 1+ /lpf
[2021-08-03 23:40] LABS: Erythrocyte Sedimentation Rate 22 mm/hr (0-30)
[2021-08-03 23:43] LABS: Procalcitonin 0.063 ng/mL (0.0-2.0)
[2021-08-04 01:00] VITALS: BP 169/80; PULSE 88; RESP 20; TEMP 36.7
[2021-08-04 01:04] VITALS: BP 169/80; PULSE 97; RESP 16; TEMP 36.9
== END 2021-08-04 01:40 | disposition home or self-care (01) ==
PROVIDERS: Emergency Provider Emergency Medicine; PCP Family Medicine
DX: N30.00 Acute cystitis without hematuria (principal); E78.5 Hyperlipidemia, unspecified; R73.9 Hyperglycemia, unspecified
CPT/HCPCS: 74177; 80053; 81001; 82150; 83605; 83690; 84145; 85025; 85651; 86140; 87040; 87086; 96365; 96367; 96375; 99283; J0696; J2405; Q9967

== ENCOUNTER 2021-08-05 14:41 | Observation (INO) | payer MEDICARE, SELFPAY ==
[2021-08-05] VITALS (8 sets, daily range): BP systolic 159–189; BP diastolic 69–98; PULSE 72–114; RESP 16–18; TEMP 36.9–37; O2SAT 76–99; BMI 29.9
[2021-08-05 15:45] LABS: Microscopic, Urine URINE MICROSCOPIC (MICROSCOPIC)
[2021-08-05 16:03] LABS: Appearance,Urine CLEAR (Clear); Bilirubin,Urine Negative (Negative); Blood, Urine TRACE-L (Negative); Color,Urine STRAW (Yellow); Glucose,Urine (UA) Negative (Negative); Ketones,Urine 3+ (Negative); Leukocyte Esterase,Urine Negative (Negative); Nitrate,Urine Negative (Negative); Protein,Urine 1+ (Negative); Specific Gravity, Urine >= 1.030 (1.005-1.030); Urobilinogen,Urine 0.2 EU/dl (0.2)
[2021-08-05 16:15] LABS: Bacteria,Urine Trace /lpf; Mucus,Urine 1+ /lpf; WBC,Urine Occasional #/hpf (0-3)
[2021-08-05 16:15] LABS: Basophils # 0.1 K/mm3 (0-0.2); Basophils % 0.5 % (0.1-2.0); Eosinophils % 0.3 % (0.1-12.0); Hematocrit 45.7 % (37.0-47.0); Lymphocytes # 0.9 K/mm3 (0.7-4.5); Mean Corpuscular HGB Conc 30.8 g/dL (31.8-35.4); Mean Corpuscular Hemoglobin 29.9 pg (27.0-31.2); Mean Corpuscular Volume 97.1 fl (81-99); Mean Platelet Volume 9.4 fl (7.4-10.4); Monocytes # 0.4 K/mm3 (0.1-1.0); Monocytes % 4.1 % (1.7-9.3); Neutrophils # 9.3 K/mm3 (1.8-7.8); Neutrophils % 87.1 % (37.0-80.0); Platelet Count 355 K/mm3 (142-424); Red Cell Distribution Width 14.6 % (11.5-17.5); White Blood Count 10.7 K/mm3 (4.8-10.8)
[2021-08-05 16:20] LABS: Alanine Aminotransferase 21 U/L (12-78); Albumin Level 4.5 g/dl (3.5-5.0); Albumin/Globulin Ratio 1.7 (1.1-1.8); Alkaline Phosphatase 72 U/L (38-126); Aspartate Amino Transferase 42 U/L (14-36); Bilirubin,Total 0.6 mg/dl (0.2-1.3); Blood Urea Nitrogen 10 mg/dl (7-17); Calcium 10.2 mg/dl (8.4-10.2); Carbon Dioxide 18 mmol/L (22.0-30.0); Chloride 109 mmol/L (98-107); Creatinine Clearance Estimated 59 mL/min (50-200); Estimated Glomerular Filt Rate 69 ml/min (>60); GFR (African American) 84 ML/MIN (>60); Globulin 2.7 g/dL (1.3-3.2); Glucose 85 mg/dl (74-100); MANUAL DIFFERENTIAL MANUAL DIFFERENTIAL (MANUAL DIFF); Sodium 141 mmol/L (136-145); Total Protein,Serum 7.2 g/dl (6.3-8.2)
[2021-08-05 16:38] LABS: Coronavirus 19, PCR Not Detected (NotDetected); Influenza A, PCR Not Detected (NotDetected); Influenza B, PCR Not Detected (NotDetected)
[2021-08-05 16:39] LABS: Anisocytosis 1+; Hypochromasia 2+; Lymphocytes % 8 % (10-50); Monocytes % 3 % (2-9); Neutrophils % 88 % (42-76); Platelet Estimate Normal; Total Cells Counted 100
--- NOTE | 2021-08-05 16:43 | CT_ITS ---
PROCEDURE INFORMATION: Exam: CT Head Without Contrast Exam date and time: 08/05/2021 4:43 PM Age: 80 years old Clinical indication: Altered mental status/memory loss; Confusion or disorientation; Additional info: AMS, confusion TECHNIQUE: Imaging protocol: Computed tomography of the head without contrast. Radiation optimization: All CT scans at this facility use at least one of these dose optimization techniques: automated exposure control; mA and/or kV adjustment per patient size (includes targeted exams where dose is matched to clinical indication); or iterative reconstruction. COMPARISON: CT HEAD/BRAIN WO CON 03/28/2021 4:53 PM FINDINGS: Brain: No acute intracranial findings. No intracranial hemorrhage. No edema, swelling or mass-effect. There is mild generalized cerebral atrophy. Mild white matter disease in both cerebral hemispheres, likely chronic microvascular ischemic changes. Streak artifacts limit evaluation of the brainstem. Cerebral ventricles: The ventricles are normal for age. No hydrocephalus. Paranasal sinuses: There is new severe mucosal thickening in the right sphenoid sinus compared with the prior exam. Slight bilateral ethmoid mucosal thickening. No acute air-fluid levels, as visualized. Mastoid air cells: Mastoids are unremarkable as visualized, no effusions. Orbital cavity: No acute findings in the orbits. Correlate for history of lens replacement surgeries. Vasculature: A few calcified plaques in the intracranial carotid arteries. Bones/joints: No acute skull fracture. No lytic lesions. Soft tissues: There are no soft tissue masses or fluid collections. IMPRESSION: 1. No acute intracranial findings. 2. There is no CT evidence of intracranial mass, intracranial hemorrhage, or acute infarct. 3. Senescent changes, as above. 4. Significantly worsened right sphenoid sinusitis compared with 03/28/2021.
--- NOTE | 2021-08-05 16:44 | XR_ITS ---
PROCEDURE INFORMATION: Exam: XR Chest Exam date and time: 08/05/2021 4:44 PM Age: 80 years old Clinical indication: Other: AMS TECHNIQUE: Imaging protocol: XR of the chest. Views: 1 view. Portable AP upright exam 5:10 p.m. COMPARISON: CR XR CHEST PORTABLE 03/30/2021 1:50 PM FINDINGS: Lungs: Chronic pulmonary hyperinflation and upper lobe emphysematous changes. Peripheral interstitial scarring in the upper lungs. Left hemidiaphragm is indistinct on this exam, likely blurred by motion, or this could be due to basilar atelectasis or layering left pleural fluid. No consolidation. Suspect chronic granulomatous changes. Pleural spaces: No pneumothorax. Chronic apical pleural thickening. Haziness at the left costophrenic angle, can't exclude a small amount of layering pleural fluid. Heart/Mediastinum: Cardiac silhouette is enlarged, but accentuated by portable AP technique. Approximate 8 cm hiatal hernia, is seen on prior CT from 08/03/2021. Bones/joints: Osteopenia. Spinal degenerative changes. IMPRESSION: 1. The left hemidiaphragm is indistinct on today's exam, which could be motion artifact versus basilar atelectasis or minimal layering pleural fluid. 2. Chronic pulmonary hyperinflation and emphysematous changes; no consolidation. 3. Hiatal hernia. 4. Additional nonemergency and chronic findings as above.
--- NOTE | 2021-08-05 16:45 | HMH.EDGENADL ---
ED Disposition Clinical Impression: Confusion, Dehydration Disposition: Admitted as Observation Condition on Discharge: Fair Referrals: Itz Urbano MD [Primary Care Provider] - - Critical Care Critical Care Time: No Attestation: On 08/05/21, the high probability of a clinically significant, sudden or life threatening deterioration of the following system(s) required my full and direct attention, intervention and personal management. The time I documented below is in addition to time spent performing reported procedures but includes the following listed in this critical care notation. Medical Decision Making - Medical Records Medical records reviewed: Yes: I reviewed the patient's medical records. MR Comment: Reviewed emergency department note from 08/03/2021. Seen for lower abdominal pain. CT scan showed findings of cystitis, although urine analysis not diagnostic. Treated with Levaquin. - Josef Inquiry Pt receiving controlled substance: No Vital Signs: 08/05/21 15:29 Temperature 98.6 F Temperature Source Oral Pulse Rate [Right Radial] 114 H Respiratory Rate 16 Blood Pressure [Right Arm] 180/94 H Blood Pressure Mean [Right Arm] 122 Blood Pressure Source [Right Arm] Automatic Cuff Blood Pressure Position [Right Arm] Sitting 02 Sat by Pulse Oximetry 96 Oxygen Delivery Method Room Air - Lab Data Lab Results 08/05/21 15:34: Urine Color Straw, Urine Appearance Clear, Urine pH 6.0, Ur Specific [place] >= 1.030, Urine Protein 1+, Urine Glucose (UA) Negative, Urine Ketones 3+, Urine Blood Trace-l, Urine Nitrate Negative, Urine Bilirubin Negative, Urine Urobilinogen 0.2, Ur Leukocyte Esterase Negative, Urine WBC Occasional, Urine Bacteria Trace, Urine Mucus 1+ 08/05/21 15:54: WBC 10.7, RBC 4.70, Hgb 14.0, Hct 45.7, MCV 97.1, MCH 29.9, MCHC 30.8 L, RDW 14.6, Plt Count 355, MPV 9.4, Neut % (Auto) 87.1 H, Lymph % (Auto) 8.0 L, [place] % (Auto) 4.1, Eos % (Auto) 0.3, Baso % (Auto) 0.5, Neut # (Auto) 9.3 H, Lymph # (Auto) 0.9, [place] # (Auto) 0.4, Eos # (Auto) 0.0, Baso # (Auto) 0.1, Total Counted 100, Neutrophils % (Manual) 88 H, Band Neutrophils % 1.0, Lymphocytes % (Manual) 8 L, Monocytes % (Manual) 3, Platelet Estimate Normal, Hypochromasia 2+, Anisocytosis 1+ 08/05/21 15:54: Sodium 141, Potassium 4.0, Chloride 109 H, Carbon Dioxide 18 L, Anion Gap 18.0 H, BUN 10, Creatinine 0.80, Estimated Creat Clear 59, Estimated GFR 69, Est GFR ( Amer) 84, Glucose 85, Calcium 10.2, Total Bilirubin 0.6, AST 42 H, ALT 21, Alkaline Phosphatase 72, Total Protein 7.2, Albumin 4.5, Globulin 2.7, Albumin/Globulin Ratio 1.7 08/05/21 15:54: Lactate 1.0 08/05/21 15:54: Troponin I < 0.01 08/05/21 16:25: SARS-CoV-2 (PCR) Not detected, Influenza A Untype (PCR) Not detected, Influenza Type B (PCR) Not detected Result diagrams: 08/05/21 15:54 08/05/21 15:54 Orders (Tests/Meds): ED MEDICATIONS Discontinued Medications Generic Name Dose Route Start Last Admin Trade Name Freq PRN Reason Stop Dose Admin Sodium Chloride 1,000 ml 08/05/21 16:34 Sodium Chloride 0.9% 1000ml Bag IV 08/05/21 16:35 BOLUS ONE ORDERS Category Date Time Status Troponin I Q3H Lab 08/05/21 19:45 Ordered Troponin I Q3H Lab 08/05/21 22:45 Ordered Blood Culture Stat Micro 08/05/21 15:54 Received - Radiology Data #1 Image(s): Chest Image Reviewed: Yes I have reviewed radiologist's interpretation PROCEDURE INFORMATION: Exam: XR Chest Exam date and time: 08/05/2021 4:44 PM Age: 80 years old Clinical indication: Other: AMS TECHNIQUE: Imaging protocol: XR of the chest. Views: 1 view. Portable AP upright exam 5:10 p.m. COMPARISON: CR XR CHEST PORTABLE 03/30/2021 1:50 PM FINDINGS: Lungs: Chronic pulmonary hyperinflation and upper lobe emphysematous changes. Peripheral interstitial scarring in the upper lungs. Left hemidiaphragm is indistinct on this exam, likely blurred by motion, or this could be due to
[2021-08-05 17:11] LABS: Troponin I < 0.01 ng/ml (0.00-0.034)
--- NOTE | 2021-08-05 17:15 | PC.NURSE ---
PT RETURNED FROM RAD
--- NOTE | 2021-08-05 18:08 | ECG_ITS ---
APPROVED REPORT Exam: Resting ECG HR:108 bpm ECG Measurements Heart Rate [address] 204 P 65 QRSd 72 QRS 66 QT 345 T 43 QTc 408 Conclusion SINUS TACHYCARDIA SEPTAL MYOCARDIAL INFARCTION , PROBABLY OLD [40+ ms Q WAVE IN V1/V2] ABNORMAL ECG UNCONFIRMED REPORT Electronically signed by : Jalen Bailey MD 08/05/2021 21:10:35
--- NOTE | 2021-08-05 18:57 | PC.NURSE ---
DR KAUFMAN AT BEDSIDE
--- NOTE | 2021-08-05 20:19 | HMH.HP ---
*Admission Date: 08/05/21 *Chief complaint: weakness and confusion with dehydration *History of present illness: Patient is a 80-year-old white female, known to me from the office, presents with a history of escalating debility, weakness, diminished p.o. intake and confusion. Patient was seen in the emergency room on 08-03-21. CT of the abdomen was done showing possible cystitis. Labs were otherwise unremarkable and she was released back home. In the interval patient remained bedbound, had markedly diminished p.o. intake and became confused. She came to see me in the office today and her mentation was off baseline. She looked acutely ill. We elected to have her further evaluated and admitted. Labs are most suggestive of dehydration, with an elevated specific gravity of the urine and presence of ketones. CT of the brain did however demonstrate some sinusitis. Patient has a history of UTI with E. coli bacteremia. She also has had marked debility, impaired ambulation, and a recent pelvic fracture. Overall her functional trajectory is one of decline. [facility] History Medical History: Reports:: Hyperlipidemia Denies:: Cancer, Diabetes Mellitus Type 1, Diabetes Mellitus Type 2, MRSA *Have you ever received a pneumonia vaccine?: No *Have you received a flu vaccine this season?: No Other Medical History: Reports: Arthritis, Fibromyalgia Other Surgeries: Yes: Appendectomy Amputation: No Fractures: Yes - *Social History Smoking Status: Never smoker Alcohol Intake: never Substance Use Type: denies use *Occupational Status:: retired Housing: house Household Members: spouse *Travel in the last 8 weeks: None Family Hx:: Non-contributory Review of Systems - Constitutional Reports anorexia, Reports body ache(s), Reports fatigue, Reports lack of energy, Reports malaise, Reports weakness, Reports weight loss - Eyes Reports other Comments: subconjunctival bleed os - ENT Reports sinus pressure, Denies abnormal hearing, Denies hearing loss - *Cardiovascular Denies chest pain - *Respiratory Denies chest congestion, Denies coughing up blood - *Gastrointestinal Denies coffee ground vomit, Denies vomiting blood - *Genitourinary Reports painful urination, Reports urinary urgency - *Musculoskeletal Reports abnormal walking, Reports joint pain, Reports decreased muscle mass, Reports back pain, Reports deformity, Reports muscle weakness, Reports body aches, Reports stiffness - Integumentary/Breasts Denies yellowing of the skin - *Neurologic Reports abnormal walking, Reports behavioral changes, Reports confusion, Reports weakness - Psychiatric Reports behavioral changes, Reports difficulty concentrating - Endocrine Denies cold intolerance, Denies increased thirst, Denies increased hunger - Hematologic/Lymphatic Denies easy bleeding - Allergic/Immunologic Denies hives Meds Home Medications Medication Instructions Recorded Confirmed Type Alendronate Sodium [Fosamax 70mg 70 mg PO WEEKLY 03/28/21 08/05/21 History Tablet] Calcium Carbonate 500 mg PO DAILY 03/28/21 08/05/21 History Cholecalciferol (Vitamin D3) 25 mcg PO DAILY 03/28/21 08/05/21 History [Vitamin D3 1,000 unit Chew. Tab] Potassium Chloride [K-Tab ER 10 10 meq PO DAILY 03/28/21 08/05/21 History mEq] Pravastatin Sodium [Pravachol 20mg 20 mg PO DAILY 03/28/21 08/05/21 History Tablet] lidocaine 5 % topical patch 2 patch TOPICAL DAILY PRN #60 each 04/26/21 08/05/21 Rx pregabalin 300 mg capsule 300 mg PO TID #90 cap 04/26/21 08/05/21 Rx acyclovir 200 mg capsule See Rx Instructions .ROUTE 06/21/21 08/05/21 Rx .COMPLEX #90 cap hydrocodone 7.5 mg-acetaminophen 1 tab PO Q8H PRN #90 tab 06/28/21 08/05/21 Rx 325 mg tablet levoFLOXacin [Levaquin 500mg 500 mg PO DAILY #7 tab 08/04/21 08/05/21 Rx tab] Allergies Allergy/AdvReac Type Severity Reaction Status Date / Time duloxetine AdvReac Severe Hallucinati Verified 08/05/21 13:54 n
--- NOTE | 2021-08-05 20:45 | PC.NURSE ---
PT ARRIVED TO FLOOR VIA STRETCHER FROM ED W/STAFF @ 2045
[2021-08-06 04:00] VITALS: BP 155/99; PULSE 108; RESP 17; TEMP 37.2; O2SAT 95
[2021-08-06 07:22] LABS: Anion Gap 14.4 mEq/L (5-15); Blood Urea Nitrogen 10 mg/dl (7-17); Calcium 9.1 mg/dl (8.4-10.2); Carbon Dioxide 17 mmol/L (22.0-30.0); Chloride 114 mmol/L (98-107); Creatinine Clearance Estimated 59 mL/min (50-200); Estimated Glomerular Filt Rate 81 ml/min (>60); GFR (African American) 98 ML/MIN (>60); Glucose 83 mg/dl (74-100); Potassium 3.4 mmoL/L (3.5-5.1); Sodium 142 mmol/L (136-145)
--- NOTE | 2021-08-06 07:24 | HMH.PHAVTE ---
[facility] VTE Monitoring - Patient Demographics Admission date: 08/05/21 Report Date: 08/06/21 Time: 07:24 Allergies/Adverse Reactions: Patient Allergies duloxetine Adverse Reaction (Severe, Verified 08/05/21 13:54) Hallucinating Height: 1.65 m Weight: 81.647 kg Patient Problems: Current Active Problems Lumbar radicular pain (Chronic) Dehydration (Acute) Lethargy (Acute) UTI (urinary tract infection) (Acute) Fracture of superior ramus of right pubis (Acute) Confusion (Acute) Osteoporosis (Chronic) Fibromyalgia (Chronic) - VTE Risk Labs: VTE Related Lab Results Hgb 14.0 g/dL (12.2-16.2) 08/05/21 15:54 Hct 45.7 % (37.0-47.0) 08/05/21 15:54 Plt Count 355 K/mm3 (142-424) 08/05/21 15:54 BUN 10 mg/dl (7-17) 08/05/21 15:54 Creatinine 0.80 mg/dl (0.52-1.04) 08/05/21 15:54 Estimated Creat Clear 59 mL/min (50-200) 08/05/21 15:54 Was VTE Risk Assessment Performed: Yes VTE Score: 1 VTE Risk Level: Very Low Risk - Prophylaxis VTE Prophylaxis Ordered?: Yes Types of VTE Prophylaxis: TEDS Knee High Location of Applied Device: Bilateral Lower Extremeties
[2021-08-06 08:00] VITALS: BP 167/87; PULSE 96; RESP 14; TEMP 36.8; O2SAT 97
--- NOTE | 2021-08-06 10:46 | HMH.OTEV ---
OT Inpatient Evaluation Rehab OT IP Evaluation Start: 08/06/21 08:54 Freq: ONCE Status: Complete Protocol: Document 08/06/21 10:41 SONA (Rec: 08/06/21 10:45 SONA [id number]) Rehab OT IP Assessment Subjective History Patient is a 80-year-old white female, known to me from the office, presents with a history of escalating debility , weakness, diminished p.o. intake and confusion. Patient was seen in the emergency room on 08-03-21. CT of the abdomen was done showing possible cystitis. Labs were otherwise unremarkable and she was released back home. In the interval patient remained bedbound, had markedly diminished p.o. intake and became confused. She came to see me in the office today and her mentation was off baseline. She looked acutely ill. We elected to have her further evaluated and admitted. Labs are most suggestive of dehydration, with an elevated specific gravity of the urine and presence of ketones. CT of the brain did however demonstrate some sinusitis. Patient has a history of UTI with E. coli bacteremia. She also has had marked debility, impaired ambulation, and a recent pelvic fracture. Overall her functional trajectory is one of decline. [facility] History Medical History: Reports:: Hyperlipidemia Patient lives in 1 story home with 1-2 LISSETT with . Patient has a hx of falling at home. Patient used a RW and BSC at home. assist with majority of ADLs. and patient request for patient to be d/c to [facility]
--- NOTE | 2021-08-06 11:57 | HMH.PTEV ---
Physical Therapy Evaluation Rehab PT IP Evaluation Start: 08/05/21 20:38 Freq: ONCE Status: Active Protocol: Document 08/06/21 10:30 PHORNE (Rec: 08/06/21 11:57 PHORNE [id number]) Subjective/History History History 80 yowf adm to [facility] with dehydration and AMS. SHe reports she lives with her with no steps to enter the home. Subjective Subjective Pt reports feeling cold throughout evaluation this date. Delayed response to all questions and mild confusion noted. Rehab PT IP Eval Objective Appearance Patient Behavior Appropriate,Confused Patient Orientation Person,Place Difficulty following instructions none Speech Pattern Clear,Delayed,Difficulty Finding Words Ambulation Patient Able to Ambulate Yes Ambulation Observation IP General Gait Pattern Observation Wide Based Gait Ambulation Distance (feet) 15 Ambulation Assistive Device Rolling Walker Ambulation Ability Contact Guard/Hand Hold Balance Ability to Arise Able, uses arms to help Sitting Balance Steady, safe Standing Balance Steady, wide stance Dynamic Sitting Balance Ability Good Dynamic Standing Balance Ability Fair Transfers Bed Transfer Ability Contact Guard/Hand Hold Chair Transfer Ability Contact Guard/Hand Hold Sit to Stand Bed Transfer Ability Contact Guard/Hand Hold Sit to Stand Chair Transfer Ability Contact Guard/Hand Hold ROM All Extremities PT ROM Status WFL MMT All Extremities PT MMT WFL Rehab PT IP prob,goals,plan Problems Date of Evaluation: 08/06/21 PT IP Problems Transfers,Gait Rehab Potential Rehab Potential Good Plan PT Intervention Plan Transfers,Gait,Self care, Therapeutic Exercise PT Plan Frequency BID Duration LOS Discharge Goals Bed Transfer Ability Supervision/Stand by Sit to Stand Chair Transfer Ability Supervision/Stand by Ambulation Assistive Device Rolling Walker Ambulation Distance (feet) 40 Discharge Plan PT Discharge Plan Pt is most appropriate for rehab placement at this time. G -code Required No Eval Complexity Eval Charge Codes 01559 - Moderate Complexity PHYSICIAN CERTIFICATION: I certify the specified therapy services for Zahra Mcnairbenita dixon
--- NOTE | 2021-08-06 13:05 | SW/DCPLANNER ---
MADE ROUNDS WITH THE TEAM THIS AM AND PATIENT FEELS SHE NEEDS TO GO SOMEWHERE FOR SHORT TERM REHAB SERVICES.. WAS AT BEDSIDE AND THEY REQUESTED I CHECK WITH [facility]. THEY WERE TOTALLY AGAINST GOING ANYWHERE ELSE, I DID CONTACT [facility] AND LIAN ASKED FOR ME TO SEND REFERRAL. I SENT IT AND WAITING TO HEAR BACK TO SEE IF THEY CAN ACCEPT HER.. I ASKED IF SHE WOULD BE A CANDIDATE TO GO UNDER [employer] [facility] TO WHERE THEY CAN EXPEDITE THE PROCESS.
[2021-08-06 16:00] VITALS: BP 174/80; PULSE 102; RESP 22; TEMP 37.2; O2SAT 96
[2021-08-06 20:00] VITALS: BP 151/83; PULSE 86; RESP 18; TEMP 36.8; O2SAT 95
[2021-08-07 04:00] VITALS: BP 156/78; PULSE 82; RESP 16; TEMP 36.8; O2SAT 94
--- NOTE | 2021-08-07 06:26 | PC.NURSE ---
Pt rested well this shift. Pt could state name, , and place. Pt c/o of nausea x1 this shift, admin meds per MAR with relief. Pt remains on RA with O2 sats 94%-95%. Pt had no c/o of pain this shift. Pt uses BSC with standby assist.
[2021-08-07 08:00] VITALS: BP 138/68; PULSE 85; RESP 18; TEMP 36.9; O2SAT 97
--- NOTE | 2021-08-07 08:33 | HMH.ACPN2 ---
Internal Medicine - PN: Subj *Date: 08/07/21 *Time: 08:33 Exam Vital signs and Labs for Last 24 Hours: Temp Pulse Resp BP Pulse Ox 98.3 F 82 16 156/78 H 94 L 08/07/21 04:00 08/07/21 04:00 08/07/21 04:00 08/07/21 04:00 08/07/21 04:00 I & O for Last 24 hours: Intake & Output 08/04/21 08/05/21 08/06/21 08/07/21 23:59 23:59 23:59 23:59 Intake Total 1000 / 1000 600 / 600 Output Total 1750 / 1750 900 / 900 Balance 1000 / 1000 -1150 / -1150 -900 / -900 Weight 180 lb 0.013 oz Assessment and Plan (1) Confusion Status: Acute Category: Medical Code(s): R41.0 - Disorientation, unspecified (2) Dehydration Status: Acute Category: Medical Code(s): E86.0 - Dehydration (3) Fracture of superior ramus of right pubis Status: Acute Qualifiers: Encounter type: subsequent encounter Fracture type: closed Fracture healing: with routine healing Qualified Code(s): S32.511D - Fracture of superior rim of right pubis, subsequent encounter for fracture with routine healing Category: Medical Code(s): S32.511A - Fracture of superior rim of right pubis, initial encounter for closed fracture (4) Lethargy Status: Acute Category: Medical Code(s): R53.83 - Other fatigue (5) UTI (urinary tract infection) Status: Acute Qualifiers: Urinary tract infection type: site unspecified Hematuria presence: without hematuria Qualified Code(s): N39.0 - Urinary tract infection, site not specified Category: Medical Code(s): N39.0 - Urinary tract infection, site not specified (6) Fibromyalgia Status: Chronic Category: Medical Code(s): M79.7 - Fibromyalgia (7) Lumbar radicular pain Status: Chronic Category: Medical Code(s): M54.16 - Radiculopathy, lumbar region (8) Osteoporosis Status: Chronic Qualifiers: Osteoporosis type: other Presence of current pathological fracture: unspecified Qualified Code(s): M81.8 - Other osteoporosis without current pathological fracture Category: Medical Code(s): M81.0 - Age-related osteoporosis without current pathological fracture
--- NOTE | 2021-08-07 08:35 | XR_ITS ---
PROCEDURE INFORMATION: Exam: XR Chest Exam date and time: 08/07/2021 8:35 AM Age: 80 years old Clinical indication: Shortness of breath; Additional info: Copd TECHNIQUE: Imaging protocol: XR of the chest. Views: 1 view. COMPARISON: CR XR CHEST PORTABLE 08/05/2021 5:09 PM FINDINGS: Lungs: COPD and interstitial prominence. Pleural spaces: No pleural effusion. Heart/Mediastinum: No cardiomegaly. Bones/joints: Osteopenia and degenerative change. IMPRESSION: COPD and interstitial prominence.
[2021-08-07 10:16] LABS: Chloride 116 mmol/L (98-107); Sodium 142 mmol/L (136-145)
[2021-08-07 10:18] LABS: Blood Urea Nitrogen 7 mg/dl (7-17); Creatinine Clearance Estimated 59 mL/min (50-200); Estimated Glomerular Filt Rate 96 ml/min (>60); GFR (African American) 117 ML/MIN (>60)
--- NOTE | 2021-08-07 10:18 | HMH.DCSUM ---
General - General Admission date:: 08/05/21 Discharge date: 08/07/21 HPI HPI: Patient is a 80-year-old white female, known to me from the office, presents with a history of escalating debility, weakness, diminished p.o. intake and confusion. Patient was seen in the emergency room on 08-03-21. CT of the abdomen was done showing possible cystitis. Labs were otherwise unremarkable and she was released back home. In the interval patient remained bedbound, had markedly diminished p.o. intake and became confused. She came to see me in the office today and her mentation was off baseline. She looked acutely ill. We elected to have her further evaluated and admitted. Labs are most suggestive of dehydration, with an elevated specific gravity of the urine and presence of ketones. CT of the brain did however demonstrate some sinusitis. Patient has a history of UTI with E. coli bacteremia. She also has had marked debility, impaired ambulation, and a recent pelvic fracture. Overall her functional trajectory is one of decline. Hospital Course Hospital Course: Patient was admitted with significant dehydration and generalized debility. This was preceded by urinary tract infection. Some cystitis was noted on CT scan. She was initially treated as an outpatient with p.o. Levaquin. Urine cultures came back unremarkable. While here she was hydrated and given physical therapy. Plans were made to discharge to [place]. All are in agreement Objective Vital signs: Temp Pulse Resp BP Pulse Ox 98.5 F 85 18 138/68 97 08/07/21 08:00 08/07/21 08:00 08/07/21 08:00 08/07/21 08:00 08/07/21 08:00 chronically ill appearing - *Routine HEENT Exam Head: Present: normocephalic, atraumatic Eye: Present: other Comments: Subconjunctival hemorrhage OS. No trauma. Cornea is grossly clear, no visual aberrations, no suggestion of infection - *Routine Neck Exam Present: supple - *Routine Respiratory Exam Present: CTA bilaterally - *Routine Cardiovascular Exam Present: RRR - *Routine Abdominal Exam Present: soft, normoactive bowel sounds. Absent: tenderness - *Routine Extremities Exam Absent: cyanosis, clubbing, edema - *Routine Skin Exam Present: warm. Absent: rash Results Labs on day of discharge: Labs from last 24 hours 08/07/21 09:46 Sodium 142 Chloride 116 H DS: Diagnosis - Discharge Diagnosis (1) Confusion Status: Resolved (2) Dehydration Status: Resolved (3) Fracture of superior ramus of right pubis Status: Chronic (4) Lethargy Status: Chronic (5) UTI (urinary tract infection) Status: Resolved (6) Fibromyalgia Status: Chronic (7) Lumbar radicular pain Status: Chronic (8) Osteoporosis Status: Chronic Discharge Plan - Patient Discharge Instructions ACTIVITY: Continue current activity DIET: continue same diet Patient Instructions: Dehydration, Delirium, DI for Dehydration -- Adult - Follow up Plan Follow up with: Itz Urbano MD [Primary Care Provider] - 2 weeks Disposition: er Inpatient Rehab Fac Condition at discharge:: Improved Home Medications: Home Medications Medication Instructions Recorded Confirmed Type Alendronate Sodium [Fosamax 70mg 70 mg PO WEEKLY 03/28/21 08/06/21 History Tablet] Calcium Carbonate 500 mg PO DAILY 03/28/21 08/06/21 History Cholecalciferol (Vitamin D3) 25 mcg PO DAILY 03/28/21 08/06/21 History [Vitamin D3 1,000 unit Chew. Tab] Potassium Chloride [K-Tab ER 10 10 meq PO DAILY 03/28/21 08/06/21 History mEq] Pravastatin Sodium [Pravachol 20mg 20 mg PO DAILY 03/28/21 08/06/21 History Tablet] lidocaine 5 % topical patch 2 patch TOPICAL DAILY PRN #60 each 04/26/21 08/06/21 Rx pregabalin 300 mg capsule 300 mg PO TID #90 cap 04/26/21 08/06/21 Rx hydrocodone 7.5 mg-acetaminophen 1 tab PO Q8H PRN #90 tab 06/28/21 08/06/21 Rx 325 mg tablet Acyclovir See Rx Instructions .ROU
[2021-08-07 10:19] LABS: Alanine Aminotransferase 14 U/L (12-78); Albumin Level 3.3 g/dl (3.5-5.0); Albumin/Globulin Ratio 1.4 (1.1-1.8); Alkaline Phosphatase 67 U/L (38-126); Anion Gap 14.4 mEq/L (5-15); Aspartate Amino Transferase 35 U/L (14-36); Bilirubin,Total 0.7 mg/dl (0.2-1.3); Carbon Dioxide 15 mmol/L (22.0-30.0); Globulin 2.4 g/dL (1.3-3.2); Potassium 3.4 mmoL/L (3.5-5.1); Total Protein,Serum 5.7 g/dl (6.3-8.2)
[2021-08-07 10:23] LABS: Calcium 8.7 mg/dl (8.4-10.2); Glucose 78 mg/dl (74-100)
[2021-08-07 11:00] LABS: Basophils # 0.1 K/mm3 (0-0.2); Basophils % 0.7 % (0.1-2.0); Eosinophils # 0.1 K/mm3 (0.0-0.4); Eosinophils % 0.8 % (0.1-12.0); Hematocrit 39.8 % (37.0-47.0); Hemoglobin 12.6 g/dL (12.2-16.2); Lymphocytes # 1.4 K/mm3 (0.7-4.5); Lymphocytes % 15.8 % (10-50); Mean Corpuscular HGB Conc 31.6 g/dL (31.8-35.4); Mean Corpuscular Hemoglobin 30.1 pg (27.0-31.2); Mean Corpuscular Volume 95.2 fl (81-99); Mean Platelet Volume 10.3 fl (7.4-10.4); Monocytes # 0.6 K/mm3 (0.1-1.0); Monocytes % 6.3 % (1.7-9.3); Neutrophils # 6.6 K/mm3 (1.8-7.8); Neutrophils % 76.3 % (37.0-80.0); Platelet Count 260 K/mm3 (142-424); Red Blood Count 4.18 M/mm3 (4.20-5.40); Red Cell Distribution Width 14.7 % (11.5-17.5); White Blood Count 8.6 K/mm3 (4.8-10.8)
[2021-08-07 11:25] LABS: Coronavirus 19, PCR Not Detected (NotDetected); Influenza A, PCR Not Detected (NotDetected); Influenza B, PCR Not Detected (NotDetected)
== END 2021-08-07 13:45 ==
LOC: ER 18:19 → 2ND 18:31
PROVIDERS: Admitting Provider Family Medicine; Emergency Provider Emergency Medicine; PCP Family Medicine; Visit Provider Family Medicine
DX: E86.0 Dehydration (principal); S32.511D Fracture of superior rim of right pubis, subsequent encounter for fracture with routine healing; M81.0 Age-related osteoporosis without current pathological fracture; Z20.822 Contact with and (suspected) exposure to COVID-19; N39.0 Urinary tract infection, site not specified; M81.8 Other osteoporosis without current pathological fracture; M54.16 Radiculopathy, lumbar region; Z79.899 Other long term (current) drug therapy; E03.9 Hypothyroidism, unspecified; R41.0 Disorientation, unspecified
CPT/HCPCS: G0378; 36415; 70450; 71045; 80048; 80053; 81001; 83605; 84484; 85007; 85025; 87040; 93005; 96365; 97110; 97162; 97165; 99284; C9803; J1956; J2405; U0003; U0005

== ENCOUNTER → 2021-09-20 16:20 | Outpatient (CLI) | payer MEDICARE, SELFPAY | PROVIDERS: Visit Provider Family Medicine | DX: N39.0 Urinary tract infection, site not specified (principal) | CPT/HCPCS: 87086 ==

== ENCOUNTER → 2022-07-01 13:30 | Outpatient (CLI) | payer MEDICARE, SELFPAY | PROVIDERS: PCP Family Medicine; Visit Provider Family Medicine | DX: R53.83 Other fatigue (principal); N39.0 Urinary tract infection, site not specified; B96.29 Other Escherichia coli [E. coli] as the cause of diseases classified elsewhere | CPT/HCPCS: 87086; 87088; 87186 ==

== ENCOUNTER → 2022-10-26 18:57 | Outpatient (CLI) | payer MEDICARE, SELFPAY ==
[2022-10-26 19:10] LABS: Basophils % 0.4 % (0.1-2.0); Eosinophils # 0.1 K/mm3 (0.0-0.4); Eosinophils % 1.1 % (0.1-12.0); Hemoglobin 12.5 g/dL (12.2-16.2); Lymphocytes # 1.8 K/mm3 (0.7-4.5); Lymphocytes % 28.7 % (10-50); Mean Corpuscular HGB Conc 30.4 g/dL (31.8-35.4); Mean Corpuscular Hemoglobin 29.4 pg (27.0-31.2); Mean Corpuscular Volume 96.7 fl (81-99); Mean Platelet Volume 10.5 fl (7.4-10.4); Monocytes # 0.4 K/mm3 (0.1-1.0); Monocytes % 5.8 % (1.7-9.3); Neutrophils # 4.1 K/mm3 (1.8-7.8); Platelet Count 238 K/mm3 (142-424); Red Blood Count 4.24 M/mm3 (4.20-5.40); White Blood Count 6.4 K/mm3 (4.8-10.8)
[2022-10-26 19:44] LABS: Chloride 107 mmol/L (98-107); Potassium 5.2 mmoL/L (3.5-5.1); Sodium 137 mmol/L (136-145)
[2022-10-26 19:47] LABS: Alanine Aminotransferase 21 U/L (12-78); Albumin/Globulin Ratio 1.7 (1.1-1.8); Alkaline Phosphatase 118 U/L (38-126); Anion Gap 14.2 mEq/L (5-15); Aspartate Amino Transferase 40 U/L (14-36); Bilirubin,Total 0.4 mg/dl (0.2-1.3); Blood Urea Nitrogen 29 mg/dl (7-17); Carbon Dioxide 21 mmol/L (22.0-30.0); Estimated Glomerular Filt Rate 36 ml/min (>60); GFR (African American) 44 ML/MIN (>60); Globulin 2.4 g/dL (1.3-3.2); Total Protein,Serum 6.4 g/dl (6.3-8.2)
[2022-10-26 19:48] LABS: Calcium 9.2 mg/dl (8.4-10.2); Glucose 65 mg/dl (74-100)
== END ==
PROVIDERS: PCP Nurse Practitioner Family; Visit Provider Nurse Practitioner Family
DX: M79.7 Fibromyalgia (principal); R60.9 Edema, unspecified
CPT/HCPCS: 80053; 85025

== ENCOUNTER → 2022-11-01 11:42 | Outpatient (CLI) | payer MEDICARE, SELFPAY ==
--- NOTE | 2022-11-01 11:49 | XR_ITS ---
FINAL REPORT CLINICAL HISTORY: Knee pain FINDINGS: LEFT KNEE 3 views of the left knee were obtained. There are postoperative changes of the tibia. There is no acute fracture or dislocation. Visualized joint spaces are normally aligned. There are mild degenerative changes. There is a small joint effusion. IMPRESSION: Small joint effusion with no acute bony abnormality. Postoperative and mild degenerative changes. Reviewed, Interpreted and Dictated by Darryl Rosado III, MD Transcribed by Rita Emery Authenticated and [facility]
--- NOTE | 2022-11-01 11:49 | XR_ITS ---
FINAL REPORT CLINICAL HISTORY: pain FINDINGS: LUMBAR SPINE Four views were obtained. There is no acute fracture. There is no malalignment. There are moderate degenerative changes with multilevel osteophytes. There is facet arthropathy in the lower lumbar spine. There is no soft tissue abnormality. IMPRESSION: Moderate degenerative change with no acute bony abnormality. Reviewed, Interpreted and Dictated by Darryl Rosado III, MD Transcribed by Rita Emery Authenticated and [facility]
--- NOTE | 2022-11-01 11:49 | XR_ITS ---
FINAL REPORT CLINICAL HISTORY: pain FINDINGS: THORACIC SPINE Three views were obtained. There is no acute fracture. There is no malalignment. There is rightward curvature of the upper thoracic spine. There are mild degenerative changes with osteophytes. There is no soft tissue abnormality. IMPRESSION: Mild degenerative changes with no acute bony abnormality. Reviewed, Interpreted and Dictated by Darryl Rosado III, MD Transcribed by Rita Emery Authenticated and [facility]
--- NOTE | 2022-11-01 11:49 | XR_ITS ---
FINAL REPORT CLINICAL HISTORY: arthralgia FINDINGS: RIGHT KNEE Four views of the right knee were obtained. There is no acute fracture or dislocation. Visualized joint spaces are normally aligned. Joint spaces are intact. Soft tissues are unremarkable. IMPRESSION: No acute bony abnormality. Reviewed, Interpreted and Dictated by Darryl Rosado III, MD Transcribed by Rita Emery Authenticated and . [facility]
== END ==
PROVIDERS: PCP Family Medicine; Visit Provider Family Medicine
DX: M25.50 Pain in unspecified joint; M54.16 Radiculopathy, lumbar region; M25.561 Pain in right knee; M25.562 Pain in left knee; M54.6 Pain in thoracic spine
CPT/HCPCS: 72070; 72100; 73562

== ENCOUNTER → 2023-03-22 23:51 | Outpatient (CLI) | payer MEDICARE, SELFPAY ==
[2023-03-22 19:12] LABS: Alanine Aminotransferase 21 U/L (12-78); Albumin Level 3.8 g/dl (3.5-5.0); Albumin/Globulin Ratio 1.5 (1.1-1.8); Alkaline Phosphatase 144 U/L (38-126); Aspartate Amino Transferase 38 U/L (14-36); Bilirubin,Total 0.2 mg/dl (0.2-1.3); Blood Urea Nitrogen 27 mg/dl (7-17); Calcium 9.7 mg/dl (8.4-10.2); Carbon Dioxide 28 mmol/L (22.0-30.0); Chloride 103 mmol/L (98-107); Estimated Glomerular Filt Rate 25 ml/min (>60); GFR (African American) 31 ML/MIN (>60); Globulin 2.5 g/dL (1.3-3.2); Glucose 84 mg/dl (74-100); Sodium 140 mmol/L (136-145); Total Protein,Serum 6.3 g/dl (6.3-8.2)
== END ==
PROVIDERS: PCP Family Medicine; Visit Provider Family Medicine
DX: M25.562 Pain in left knee (principal)
CPT/HCPCS: 80053

== ENCOUNTER → 2023-04-03 09:07 | Outpatient (POV) | payer MEDICARE, SELFPAY ==
--- NOTE | 2023-04-03 09:25 | EXP.PAIN.OV ---
HPI Data of Consult Patient: new to practice Consult date: 04/03/23 Requesting Physician: Desiree Mena APRN Primary Care Provider: Itz Urbano MD Consult Narrative Reason for consult: Mid back pain, low back pain, bilateral knee pain History of present illness: Ms. Bennett is a 82 year old female who presents today as a new patient. She is a referral from Dr. Reece Mena's office. Today she rates her pain a 10 out of 10. Patient states majority of her pain is all in her left knee. She states this has been going on for months and progressively worsened over time. Patient denies any specific trauma or injury that initially led to her symptoms. She does describe this as a sharp achy sensation that is worse with increased activity. She states her pain is worse with increased activity and that she frequently has to take multiple breaks due to the pain with ambulation. Patient does state the pain interferes with her ability perform activities of daily living such as cooking and cleaning. Patient has had intra-articular injections in office by Dr. Mena however they only lasted a couple of days. Patient denies any previous surgery on her left knee. She does have a history of a left lower leg fracture and does have a kev in place. Patient does try and stay active and does at home stretching and exercise however this is limited due to her worsening pain symptoms. She has tried [id number] medications such as Tylenol along with heat and ice and multiple topical creams with no additional relief. She is currently managed with [place] 7.5 mg 3 times a day and pregabalin 300 mg 3 times a day from Dr. Urbano. Patient denies any side effects from this medication. Patient does states she has a history of mid to low back pain as well as right knee pain however the left is what really causes significant pain on a daily basis. Her Josef is [id number]. Its been reviewed and appropriate. CC: Desiree Mena APRN [facility] Disclaimer: The information contained in this section may have been updated after the patient was seen, as this information can be updated by other users. Social History Smoking Status: Never smoker alcohol intake: never substance use type: denies use current occupational status: retired Travel in the last 8 weeks: None household members: spouse housing: house caffeine: No Review of Systems Review of Systems Review of systems:: pertinent systems reviewed and negative unless documented below Review of systems (narrative): Review of Systems: General: No recent weight changes, no fever, no sleep disturbances Respiratory: No cough, no shortness of air, no recurring pulmonary infections Cardiovascular/peripheral vascular: No chest pain, no palpitations, no edema, no shortness of breath Gastrointestinal: No new onset incontinence, normal bowel movements reported Genitourinary: No new onset incontinence Musculoskeletal: Left knee pain Psychiatric: [Normal mood/affect] Neurological: [Denies weakness in extremities], [denies balance issues] Meds Home Medications and Allergies Home Medications Medication Instructions Recorded Confirmed Type calcium carbonate 500 mg calcium 500 mg PO DAILY Supplement 03/28/21 03/22/23 History (1,250 mg) tablet cholecalciferol (vitamin D3) 25 25 mcg PO DAILY Supplement 03/28/21 03/22/23 History mcg (1,000 unit) chewable tablet ergocalciferol (vitamin D2) 1,250 1,250 mcg PO WEEKLY #15 caps 09/20/21 03/22/23 Rx mcg (50,000 unit) capsule (Drisdol) acyclovir 200 mg capsule 200 mg PO DAILY #90 caps 07/22/22 03/22/23 Rx pregabalin 300 mg capsule 300 mg PO TID neuropathy #90 caps 01/09/23 03/22/23 Rx potassium chloride 10 mEq 10 meq PO DAILY #30 tabs 02/13/23 03/22/23 Rx tablet,extended release torsemide 20 mg tablet 20 mg PO DAILY PRN edema #30 tabs 02/13/23 03/22/23 Rx celecoxib 200 mg capsule See Rx Instructions .R
[2023-04-03 09:47] VITALS: BP 152/69; PULSE 75; RESP 18; O2SAT 96; BMI 24.2
== END ==
PROVIDERS: PCP Family Medicine; Visit Provider Nurse Practitioner Family
DX: M51.16 Intervertebral disc disorders with radiculopathy, lumbar region; M51.34 Other intervertebral disc degeneration, thoracic region; G89.4 Chronic pain syndrome; M17.12 Unilateral primary osteoarthritis, left knee; M25.561 Pain in right knee; M25.562 Pain in left knee
CPT/HCPCS: 99202; G0463

== ENCOUNTER → 2023-04-14 09:55 | Outpatient (POV) | payer MEDICARE, SELFPAY ==
--- NOTE | 2023-04-14 10:23 | A.OFFVIS_ITS ---
[facility] Pain Management SOAP Note Subjective:: The patient is a very pleasant 82-year-old female that comes our clinic today for follow-up visit after being denied left genicular nerve block. Patient has constant left thigh, knee, anterior tibia pain. She is status post intramedullary nail left tibia 2002. Patient has chronic eversion rotation of the left foot. Patient complains of pain that is constant, dull, aching, sharp, stabbing at times. She rates her pain 8/10. I discussed in detail with the patient regarding options for her left knee. She is not interested in surgical intervention at this time. Patient uses a walker for stability. She is ambulatory. She tries remain active at home doing light house duty as well as light yard work. I recommend trigger point injections of the distal quadriceps muscle as well as patellar tendon trigger point injection of the left leg. Patient wishes to proceed. She would like to get some degree of relief without surgical intervention. Patient is currently taking Lyrica 300 mg 1 p.o. twice daily as well as hydrocodone 7.5 mg 1 p.o. 3 times daily from her PCP. Patient states the medication decreases her pain by 25%. Her Josef #[id number] is been reviewed and appropriate. Objective:: Patient is awake alert [place] x3. In no acute distress. Flexion-extension cervical lumbar spine normal. Deep tendon reflexes upper and lower extremities normal. Motor strength upper and lower extremities normal. There is no gross sensory deficit. Gait is antalgic. Assessment:: Osteoarthritis left knee. Chronic left knee pain. Myofascial pain left distal quadriceps tendon. Myofascial pain patellar tendon left leg. Plan:: Discussed in detail with the patient and her regarding treatment options. Again, patient not interested in surgical intervention at this time. I recommend trigger point injections of cortisone with short and long acting local anesthetic of the distal quadriceps tendon as well as the patellar tendon left leg. I answered the patient's questions. She wishes to proceed. [facility] Disclaimer: The information contained in this section may have been updated after the patient was seen, as this information can be updated by other users. 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
[2023-04-14 10:42] VITALS: BP 119/73; PULSE 81; RESP 18; O2SAT 97; BMI 24.2
== END ==
PROVIDERS: PCP Family Medicine; Visit Provider Nurse Anesthetist, Certified Registered
DX: M17.12 Unilateral primary osteoarthritis, left knee (principal); M25.562 Pain in left knee; G89.29 Other chronic pain; M79.18 Myalgia, other site
CPT/HCPCS: 99212; G0463

== ENCOUNTER → 2023-04-21 08:50 | Outpatient (CLI) | payer MEDICARE, SELFPAY | PROVIDERS: PCP Family Medicine; Visit Provider Family Medicine | DX: R39.9 Unspecified symptoms and signs involving the genitourinary system (principal); R82.90 Unspecified abnormal findings in urine | CPT/HCPCS: 87086 ==

== ENCOUNTER 2023-04-25 11:04 | Day surgery (SDC) | payer MEDICARE, SELFPAY ==
[2023-04-25 11:17] VITALS: BP 107/76; PULSE 90; RESP 16; TEMP 36.7; O2SAT 95; BMI 24.2
--- NOTE | 2023-04-25 11:32 | EXP.PAIN.PRO ---
Procedure Date: 04/25/23 Time: 11:30 Anesthesiologist:: Misbah Dixon CRNA Complications:: None Pre-procedure Diagnosis:: Chronic left knee pain. Osteoarthritis left knee. Status post left knee replacement. Post-procedure Diagnosis:: Same. Indications for Procedure:: Patient is a very pleasant 82-year-old female that comes our clinic today for left distal quadriceps tendon trigger point injection as well as proximal patella tendon trigger point injections. Patient is status post left knee replacement several years ago. She is continue to have pain since replacement. She describes the pain as constant, dull, aching. Patient has antalgic gait that requires a walker for stability. This is due to the left knee pain. Procedure Details:: Details of the procedure explained to the patient. The patient taken to procedure room placed in the sitting position. The area over the left knee was cleansed using chlorhexidine as a cleansing solution. Using a 25-gauge inch and half needle the distal quadriceps tendon was injected with 3 cc into separate areas proximal to the patella of a solution containing 0.25% Marcaine +1% lidocaine and 40 mg of Depo-Medrol. The same procedure was carried out in the proximal medial patella tendon. Patient tolerated procedure without difficulty. No complications. Plan and Disposition:: Patient was discharged without incident.
[2023-04-25 11:33] VITALS: BP 160/73; PULSE 74; RESP 18; O2SAT 98
== END 2023-04-25 11:33 | disposition home or self-care (01) ==
PROVIDERS: PCP Family Medicine; Visit Provider Nurse Anesthetist, Certified Registered
DX: M17.12 Unilateral primary osteoarthritis, left knee (principal); M25.562 Pain in left knee; G89.29 Other chronic pain; Z96.652 Presence of left artificial knee joint
CPT/HCPCS: 20551; J1040

== ENCOUNTER → 2023-05-17 10:50 | Outpatient (POV) | payer MEDICARE, SELFPAY ==
--- NOTE | 2023-05-17 11:15 | EXP.PAIN.SOA ---
[facility] Pain Management SOAP Note Subjective:: Patient is a pleasant 82-year-old female who presents today for follow-up left knee trigger point injections on 04/25/2023. We are currently treating the patient for left knee pain, left knee osteoarthritis. Today she rates her pain a 10 out of 10. Patient denies any new trauma or injury. She does state that she only had approximately 30 to 40% improvement following the trigger point injections lasting approximately 3 days. She does state that she is back to her baseline. Patient does state the pain is worse with increased ambulation or activity. She states this is an aching, throbbing sensation that does also cause cracking within the knee joint. Patient does have a history of surgery to her left tibia and did have a kve placed and has chronic pain at this site. Patient denies any previous total left knee replacement in the past. She was seeing Dr. Reece Mena who recommended her to our office for a genicular nerve block which was denied by insurance. Patient states that she had talked to Dr. Mena about gel injections however he did not think these would help and at that time did not think she was a candidate for surgery due to the hardware that was already in place at her to be. Patient is currently managed with Lyrica 300 mg 3x a day and [place] 7.5 mg 3 times a day from her PCP. Patient denies any side effects from this medication. Her Josef has been reviewed. Review of Systems: General: No recent weight changes, no fever, no sleep disturbances Respiratory: No cough, no shortness of air, no recurring pulmonary infections Cardiovascular/peripheral vascular: No chest pain, no palpitations, no edema, no shortness of breath Gastrointestinal: No new onset incontinence, normal bowel movements reported Genitourinary: No new onset incontinence Musculoskeletal: Left knee pain Psychiatric: [Normal mood/affect] Neurological: [Denies weakness in extremities], [denies balance issues] Objective:: Physical Exam: General: Alert and oriented x3, no acute distress, pleasant and cooperative Lungs: Respirations even and unlabored, symmetrical chest expansion Eyes: PERRL Musculoskeletal: Flexion and extension of left knee somewhat guarded secondary to pain, [antalgic gait noted] Neurological: Speech clear, no gross sensory deficit Assessment:: Left knee pain, left knee osteoarthritis Plan:: Patient continues to experience significant pain in her left knee with limited range of motion. I have discussed with the patient that she may benefit from a left knee intra-articular injection. Risk and benefits were discussed with the patient and she would like to proceed forward with this plan of care. I have also discussed with the patient in future I can always send a referral and opinion regarding possible left knee replacement. I have also discussed with the patient that we can always proceed forward with the genicular nerve block if they would like to pay [id number] and that this can be scheduled at the [facility] location. Patient will be scheduled for a left knee intra-articular injection. Patient has been instructed to contact the clinic with any concerns before the next appointment. Dr. Barrientos has reviewed this note and agrees with this plan of care. This note was dictated using voice recognition software and make contain errors or omissions. [facility] Disclaimer: The information contained in this section may have been updated after the patient was seen, as this information can be updated by other users. Medical History Osteoarthritis Social History (Updated 04/25/23 @ 11:17 by Jeannine Landeros RN) Smoking Status: Never smoker alcohol intake: never substance use type: denies use current occupational status: retired Travel in the last 8 weeks: None household members: spouse housing: house caffeine: No
[2023-05-17 11:51] VITALS: BP 166/72; PULSE 83; RESP 18; O2SAT 95; BMI 25.0
== END ==
LOC: SC.PAIN 10:52
PROVIDERS: PCP Family Medicine; Visit Provider Nurse Practitioner Family
DX: M17.12 Unilateral primary osteoarthritis, left knee (principal); M25.562 Pain in left knee
CPT/HCPCS: 99212; G0463

== ENCOUNTER 2023-05-30 09:42 | Day surgery (SDC) | payer MEDICARE, SELFPAY ==
[2023-05-30 09:59] VITALS: BP 139/81; PULSE 77; RESP 16; TEMP 36.5; O2SAT 96; BMI 24.2
[2023-05-30 10:17] VITALS: BP 144/73; PULSE 77; RESP 18; O2SAT 96
[2023-05-30 10:20] VITALS: BP 144/73; PULSE 78; RESP 18; O2SAT 95
[2023-05-30 10:22] VITALS: BP 136/56; PULSE 76; RESP 18; O2SAT 96
--- NOTE | 2023-05-30 10:22 | EXP.PAIN.PRO ---
Procedure Date: 05/30/23 Time: 10:10 Anesthesiologist:: Misbah Dixon CRNA Complications:: None Pre-procedure Diagnosis:: Osteoarthritis left knee. DJD left knee. Chronic left knee pain. Post-procedure Diagnosis:: Same. Indications for Procedure:: Patient is a very pleasant 82-year-old female comes our clinic today for a left intra-articular knee injection. Patient has chronic left knee pain she describes as constant, dull, aching. Patient has a history of left intramedullary tibial kev several years ago after fracture. She is continue to have knee pain. She rates her pain 6/10. Procedure Details:: Procedure Details: Left intra-articular knee injection Informed consent was obtained risk and benefits of the procedure were explained to the patient. Patient was taken the procedure room left knee was prepped using ChloraPrep. A 25-gauge needle was used to inject 10 mL bupivacaine 0.25% and Depo-Medrol 40 mg into each knee. The patient tolerated the procedure well with no complications. Plan and Disposition:: Patient was discharged without incident.
== END 2023-05-30 10:22 | disposition home or self-care (01) ==
PROVIDERS: PCP Family Medicine; Visit Provider Nurse Anesthetist, Certified Registered
DX: M17.12 Unilateral primary osteoarthritis, left knee (principal); M25.562 Pain in left knee; G89.29 Other chronic pain
CPT/HCPCS: 20610; J1040

== ENCOUNTER → 2023-06-19 10:18 | Outpatient (POV) | payer MEDICARE, SELFPAY ==
--- NOTE | 2023-06-19 10:22 | A.OFFVIS_ITS ---
[facility] Pain Management SOAP Note Subjective:: Patient is a pleasant 82-year-old female who presents today for follow-up left knee intra-articular injection on 05/30/2023. We are currently treating the patient for left knee pain, left knee osteoarthritis. Today she rates her pain a 8 out of 10. Patient denies any new trauma or injury. She states she had at least 50% following this injection lasting 3 to 4 days. Patient states she was able to move around easier with decreased pain symptoms and overall felt more functional. Today she does state that she is going back towards her baseline. She denies any pain in her right knee and states it is all in her left and describes it as an aching, throbbing sensation that is worse with increased ambulation or activity. She states the pain does interfere with her ability perform activities of daily living such as cooking and cleaning. Patient does have hardware in her tibia from a previous surgery. She is currently managed with pregabalin 300 mg 3 times a day and [place] 7.5 mg 3 times a day from her PCP and compounded cream from our office. Patient denies any side effects from this medication. Her Josef has been reviewed. Review of Systems: General: No recent weight changes, no fever, no sleep disturbances Respiratory: No cough, no shortness of air, no recurring pulmonary infections Cardiovascular/peripheral vascular: No chest pain, no palpitations, no edema, no shortness of breath Gastrointestinal: No new onset incontinence, normal bowel movements reported Genitourinary: No new onset incontinence Musculoskeletal: Left knee pain Psychiatric: [Normal mood/affect] Neurological: [Denies weakness in extremities], [denies balance issues] Objective:: Physical Exam: General: Alert and oriented x3, no acute distress, pleasant and cooperative Lungs: Respirations even and unlabored, symmetrical chest expansion Eyes: PERRL Musculoskeletal: Flexion and extension of left knee somewhat guarded secondary to pain, [antalgic gait noted] Neurological: Speech clear, no gross sensory deficit Assessment:: Left knee pain, left knee osteoarthritis Plan:: Patient had significant improvement following her left knee intra-articular injection however it only lasted approximately 4 days. Patient did have limited range of motion of her left knee during today's visit. I have discussed with the patient that she may benefit from repeat intra-articular injection. Risk and benefits were discussed with the patient and she would like to proceed forward with this plan of care. Patient will be scheduled for a left knee intra-articular injection. Patient has been instructed to contact the clinic with any concerns before the next appointment. Dr. Barrientos has reviewed this note and agrees with this plan of care. This note was dictated using voice recognition software and make contain errors or omissions. [facility] Disclaimer: The information contained in this section may have been updated after the patient was seen, as this information can be updated by other users. Medical History Osteoarthritis Social History Smoking Status: Never smoker alcohol intake: never substance use type: denies use current occupational status: retired Travel in the last 8 weeks: None household members: spouse housing: house caffeine: No
[2023-06-19 10:24] VITALS: BP 140/50; PULSE 70; RESP 18; O2SAT 94; BMI 24.2
== END ==
LOC: SC.PAIN 10:19
PROVIDERS: PCP Family Medicine; Visit Provider Nurse Practitioner Family
DX: M17.12 Unilateral primary osteoarthritis, left knee (principal); M25.562 Pain in left knee
CPT/HCPCS: 99212; G0463

== ENCOUNTER 2023-06-30 09:52 | Day surgery (SDC) | payer MEDICARE, SELFPAY ==
--- NOTE | 2023-06-30 10:17 | EXP.PAIN.PRO ---
Procedure Date: 06/30/23 Time: 10:10 Anesthesiologist:: Misbah Dixon CRNA Complications:: None Pre-procedure Diagnosis:: DJD left knee. Chronic left knee pain. Post-procedure Diagnosis:: Same. Indications for Procedure:: Patient is a very pleasant comes our office for left intra-articular knee injection. Patient has responded very well to left intra-articular knee injection in the past. Patient is ambulatory with a walker however minimally. She rates her pain 7/10. She describes the left knee pain as constant, dull, aching. Procedure Details:: Procedure Details: Left intra-articular knee injection Informed consent was obtained risk and benefits of the procedure were explained to the patient. Patient was taken the procedure room left knee was prepped using ChloraPrep. A 25-gauge needle was used to inject 10 mL bupivacaine 0.25% and Depo-Medrol 40 mg into each knee. We did a total of 80 mg Depo-Medrol for both knees. The patient tolerated the procedure well with no complications. Plan and Disposition:: Patient was discharged without incident.
[2023-06-30 10:24] VITALS: BP 116/73; PULSE 68; RESP 18; TEMP 36.2; O2SAT 94; BMI 24.2
[2023-06-30 10:30] VITALS: BP 141/53; PULSE 60; O2SAT 96
[2023-06-30 10:37] VITALS: BP 141/53; PULSE 70; RESP 18; O2SAT 95
[2023-06-30 10:45] VITALS: BP 142/73; PULSE 70; RESP 16; O2SAT 94
== END 2023-06-30 10:45 | disposition home or self-care (01) ==
PROVIDERS: PCP Family Medicine; Visit Provider Nurse Anesthetist, Certified Registered
DX: M17.12 Unilateral primary osteoarthritis, left knee (principal); M25.562 Pain in left knee; G89.29 Other chronic pain
CPT/HCPCS: 20610; J1040

== ENCOUNTER → 2023-07-18 11:00 | Outpatient (POV) | payer MEDICARE, SELFPAY ==
[2023-07-18 11:02] VITALS: BP 128/67; PULSE 73; RESP 20; O2SAT 93; BMI 24.2
--- NOTE | 2023-07-18 11:41 | EXP.PAIN.SOA ---
[facility] Pain Management SOAP Note Subjective:: This patient is a very pleasant 82-year-old female returns our clinic today after receiving intra-articular left knee injection. Patient has had multiple left knee intra-articular injections. She continues having chronic left knee pain she describes as constant, dull, aching. Patient using a rollator to assist with ambulation secondary to left knee pain. Patient had left tibial intra-medullary kev 20 years ago after tib-fib fracture. She reports orthopedics will not replace the knee and did not recommend hyaluronic acid injections. I discussed in detail with the patient regarding genicular block left knee. She wishes to proceed. Objective:: Patient is awake alert [place] x 3. No acute distress. Flexion-extension normal. Deep tendon reflexes upper lower extremities normal. Motor strength upper and lower extremities normal. There is no gross sensory deficit. Gait is normal. Assessment:: DJD left knee. Chronic left knee pain. Plan:: Discussed in detail with the patient and her regarding left genicular nerve block with subsequent ablation if needed. Patient has tried and failed all conservative measures including NSAIDs, Tylenol, physical therapy, intra-articular steroid. Patient out of options in regards to help with the chronic left knee pain. Patient's Josef #[id number] is been reviewed and appropriate. Patient is taking hydrocodone 7.5 mg 1 p.o. 2-3 times daily for left knee pain. This is from her PCP. [facility] Disclaimer: The information contained in this section may have been updated after the patient was seen, as this information can be updated by other users. Medical History Osteoarthritis Social History Smoking Status: Never smoker alcohol intake: never substance use type: denies use current occupational status: other Travel in the last 8 weeks: None household members: spouse housing: house caffeine: No
== END ==
LOC: SC.PAIN 11:02
PROVIDERS: Visit Provider Nurse Anesthetist, Certified Registered
DX: M17.12 Unilateral primary osteoarthritis, left knee (principal); M25.562 Pain in left knee; G89.29 Other chronic pain
CPT/HCPCS: 99212; G0463

== ENCOUNTER 2023-08-01 12:45 | Day surgery (SDC) | payer MEDICARE, SELFPAY ==
[2023-08-01 12:58] VITALS: BP 129/80; PULSE 69; RESP 18; TEMP 36.5; O2SAT 98; BMI 24.2
[2023-08-01] MEDS: methylPREDNISolone ACETATE 80MG/ML VIAL 80 MG (13:05)
[2023-08-01] MEDS: LIDOCAINE 1% 5ML PF VIAL 5 ML (13:05)
[2023-08-01] MEDS: BUPIVACAINE 0.25% 10ML INJ 25 MG IJ (13:05)
[2023-08-01 13:18] VITALS: BP 132/67; PULSE 127; RESP 18; O2SAT 98
--- NOTE | 2023-08-01 13:19 | PC.NURSE ---
1318-PT C/O CHEST HEAVINESS, HEART RATE 130'S ON PULSE OX AND RADIALLY, BP 132/67. HEART RATE WAS IRREGULAR. ED CALLED AND NOTIFIED OF PT. PT AND HER WERE TRANSPORTED PER STAFF TO ED FOR EVALUATION. PT STABLE AND A&O X3.
--- NOTE | 2023-08-01 13:27 | EXP.PAIN.PRO ---
Procedure Date: 08/01/23 Time: 13:00 Anesthesiologist:: Misbah Dixon CRNA Complications:: None Pre-procedure Diagnosis:: Myofascial pain left distal quadriceps tendon. Left anterior proximal patellar tendon. Chronic left knee pain. Post-procedure Diagnosis:: Same. Indications for Procedure:: Patient is a very pleasant 82-year-old female's been suffering with chronic left knee pain for quite some time. Patient had intramedullary kev placed in the left tibia 20 years ago. This resulted in left foot abduction. Antalgic gait. Patient has had intra-articular cortisone injections in the left knee. These have become ineffective. She responded well several weeks ago from lidocaine and Depo-Medrol into separate areas of the distal quadriceps tendon and the anterior proximal patellar tendon. Procedure Details:: Details of the procedure explained the patient. The patient taken procedure and placed in sitting position. The area over the entire left knee was prepped with chlorhexidine. 2 separate areas 1 medially and 1 laterally at the distal quadricep tendon was injected with 3 cc of lidocaine and 10 mg of Depo-Medrol. The same procedure was carried out over the anterior proximal patellar tendon. Patient tolerated procedure without difficulty. There are no complications. Plan and Disposition:: Patient was reevaluated 10 minutes post procedure. Her blood pressure is normal however her heart rate is in the 130s. Regular rhythm. Patient was taken to the emergency room for evaluation. Patient states she has had a history of atrial fibs in the past. Tachycardia in the past. She will return to see us in the clinic for postop visit.
== END 2023-08-01 13:18 | disposition home or self-care (01) ==
LOC: SC.PAINP 12:46
PROVIDERS: PCP Family Medicine; Visit Provider Nurse Anesthetist, Certified Registered
DX: M25.562 Pain in left knee (principal); G89.29 Other chronic pain; M79.18 Myalgia, other site; R00.0 Tachycardia, unspecified
CPT/HCPCS: 20551; J1040

== ENCOUNTER 2023-08-01 13:20 | Emergency (ER) | payer MEDICARE, SELFPAY ==
[2023-08-01] VITALS (9 sets, daily range): BP systolic 129–154; BP diastolic 69–89; PULSE 65–118; RESP 12–18; TEMP 36.6; O2SAT 91–96; BMI 24.2
--- NOTE | 2023-08-01 13:25 | ECG_ITS ---
APPROVED REPORT Exam: Resting ECG HR:91 bpm ECG Measurements Heart Rate 91 AXES TN 232 P 45 QRSd 80 QRS 8 QT 290 T 17 QTc 339 Conclusion SINUS RHYTHM WITH FIRST DEGREE AV BLOCK WITH FREQUENT SUPRAVENTRICULAR PREMATURE COMPLEXES MODERATE ST DEPRESSION [0.05+ mV ST DEPRESSION] ABNORMAL ECG UNCONFIRMED REPORT Electronically signed by : Jalen Bailey MD 08/02/2023 08:37:22
--- NOTE | 2023-08-01 13:34 | XR_ITS ---
FINAL REPORT CLINICAL HISTORY: dyspnea COMPARISON: July 2021 FINDINGS: The heart size is normal. The mediastinum is within normal limits. There is mild bibasilar opacity. There is bilateral apical scarring and pleural thickening. There is no pleural effusion. There is no pneumothorax. The bony thorax is intact. IMPRESSION: Mild bibasilar opacity could represent atelectasis or pneumonia. Reviewed, Interpreted and Dictated by Darryl Rosado III, MD Transcribed by Rufino Crooks Authenticated and . [facility]
--- NOTE | 2023-08-01 13:36 | ED_ITS ---
Discharge Plan Disposition Patient Disposition: Home, Self-Care Prescriptions Prescriptions: New diltiazem HCl 60 mg capsule,extended release 12 hr 60 mg PO BID 14 Days Qty: 28 0RF Eliquis 5 mg tablet 5 mg PO BID 90 Days Qty: 180 0RF No Action Prolia 60 mg/mL syringe 60 mg SQ [id number] torsemide 20 mg tablet 20 mg PO DAILY PRN (Reason: edema) Qty: 30 3RF hydrocodone-acetaminophen 7.5-325 mg tablet 1 tab PO Q8H PRN (Reason: pain) Qty: 90 0RF pregabalin 300 mg capsule 300 mg PO TID Qty: 90 5RF acyclovir 200 mg capsule 200 mg PO DAILY Qty: 30 0RF calcium carbonate 500 MG tablet 500 mg PO DAILY cholecalciferol (vitamin D3) 25 MCG tablet,chewable 25 mcg PO DAILY celecoxib 200 mg capsule See Rx Instructions .ROUTE .COMPLEX Rx Instructions: TAKE ONE CAPSULE BY MOUTH DAILY potassium chloride 10 mEq tablet extended release 10 meq PO DAILY Rx Instructions: one with each torsemide lidocaine 5 % adhesive patch,medicated See Rx Instructions .ROUTE .COMPLEX Rx Instructions: Apply 2 Patches topically as needed for pain from rib fracture. Leave on most painful area for up to 12 hours ergocalciferol (vitamin D2) [Drisdol] 1,250 mcg (50,000 unit) capsule 1,250 mcg PO WEEKLY Referrals Follow up/Referrals: Ab Villagomez MD [Staff Physician] - See instructions (next available appointment ) Itz Urbano MD [Primary Care Provider] - See instructions Activity Restrictions/Add. Instructions Additional Instructions/Restrictions: You had paroxysmal atrial fibrillation we started you on a new medication for rate control called diltiazem and also a blood thinner called Eliquis. Please follow-up next available appointment with Dr. Villagomez to discuss further management of this condition. Clinical Impressions Clinical Impression: Atrial fibrillation with RVR, Paroxysmal atrial fibrillation, First degree AV block Discharge ED Provider: Shravan Leach General Adult HPI <Julissa Shetty MD - Last Filed: 08/01/23 14:50> General Chief complaint: Arrhythmia/Palpitations Stated complaint: heart rate Time Seen by Provider: 08/01/23 13:22 Mode of Arrival: Wheelchair Source of Information: Patient Limitations: No Limitations Description of Symptoms (Recalled from ER Triage Doc. by RN): Per Pain Management nurse patient had injections into her knee today and during and after the procedure she began to become tachycardic with an irregular heart beat. Patient states she does have a heaviness in her chest but otherwise feels good. Denies chest pain or shortness of breath. History of Present Illness HPI narrative: Patient is a 82-year-old female without a history of cardiopulmonary disease presenting today with significant elevated heart rate. She was getting an injection in her knee earlier with lidocaine as well as steroids the injection went well but after the procedure she was found to have a significantly elevated heart rate and was complaining of some chest discomfort. Patient denied any tinnitus agitation seizures loss of consciousness respiratory arrest hypotension bradycardia ventricular arrhythmias etc. No history of atrial fibrillation or atrial flutter. No history of any coronary disease. She has been unable to test whether not this is exertional. It is nonradiating just a heaviness in her chest she describes with some mild dyspnea. Related Data Home Medications Medication Instructions Recorded Confirmed calcium carbonate 500 mg calcium 500 mg PO DAILY Supplement 03/28/21 08/01/23 (1,250 mg) tablet cholecalciferol (vitamin D3) 25 25 mcg PO DAILY Supplement 03/28/21 08/01/23 mcg (1,000 unit) chewable tablet denosumab 60 mg/mL subcutaneous 60 mg SQ [id number] OSTEOPOROSIS 03/22/23 08/01/23 syringe (Prolia) celecoxib 200 mg capsule See Rx Instructions .Route 04/03/23 08/01/23 .COMPLEX Pain ergocalciferol (vitamin D2) 1,250 1,250 mcg PO WEEKLY SUPPLIMENT 04/03/23 08/01/23 mcg (50,000 unit) capsule (Drisdol) lidocaine 5 % topical patch See Rx Instructions .Route 04/03/23 08/01/23 .COMPLEX Pain potassium chloride 10 mEq 10 meq PO DAILY SUPPLIMENT 04/03/23 08/01/23 tablet,extended release Previous Rx's Medication Instructions Recorded torsemide 20 mg tablet 20 mg PO DAILY PRN edema #30 tabs 02/13/23 hydrocodone 7.5 mg-acetaminophen 1 tab PO Q8H PRN pain #90 tabs 07/19/23 325 mg tablet pregabalin 300 mg capsule 300 mg PO TID neuropathy #90 caps 07/19/23 acyclovir 200 mg capsule 200 mg PO DAILY . #30 caps 07/21/23 apixaban 5 mg tablet (Eliquis) 5 mg PO BID 90 days #180 tabs 08/01/23 diltiazem HCl 60 mg 60 mg PO BID 14 days #28 caps 08/01/23 capsule,extended release 12 hr Allergies Allergy/AdvReac Type Severity Reaction Status Date / Time No Known Allergies Allergy Verified 08/01/23 13:46 PFS <Julissa Shetty MD - Last Filed: 08/01/23 14:50> ON LICENSE OF [facility] Disclaimer: The information contained in this section may have been updated after the patient was seen, as this information can be updated by other users. Medical History Osteoarthritis Social History Smoking Status: Never smoker alcohol intake: never substance use type: denies use current occupational status: other Travel in the last 8 weeks: None household members: spouse housing: house caffeine: No <Julissa Shetty MD - Last Filed: 08/01/23 14:50> ROS Obtained: Yes All systems reviewed & no additional complaints except as documented Physical Exam <Julissa Shetty MD - Last Filed: 08/01/23 14:50> General General appearance: alert Respiratory Respiratory exam: Present normal lung sounds bilaterally; Absent respiratory distress Cardiovascular Cardiovascular exam: Present tachycardia, irregular rhythm and other (On my evaluation heart rates anywhere from 1 20-1 50 and is irregularly irregular) Neurological Exam Neurological exam: Present alert and oriented X3 (Nonfocal) Medical Decision Making <Julissa Shetty MD - Last Filed: 08/01/23 14:50> Josef Inquiry Pt receiving controlled substance: No Vital Signs: 08/01/23 13:21 08/01/23 13:36 08/01/23 14:00 Temperature 97.9 F Temperature Source Oral Pulse Rate 114 H 71 Pulse Rate [Radial] 118 H Respiratory Rate 16 14 13 Blood Pressure 145/88 H 150/84 H Blood Pressure [Right Arm] 154/89 H Blood Pressure Mean 102 106 Blood Pressure Mean [Right Arm] 110 Blood Pressure Source [Right Arm] Automatic Cuff Blood Pressure Position [Right Arm] Sitting 02 Sat by Pulse Oximetry 95 95 96 Oxygen Delivery Method Room Air Room Air 08/01/23 14:30 08/01/23 15:00 08/01/23 15:30 Temperature Temperature Source Pulse Rate 71 69 65 Pulse Rate [Radial] Respiratory Rate 16 14 12 Blood Pressure 142/73 H 143/77 H 137/74 Blood Pressure [Right Arm] Blood Pressure Mean 108 99 Blood Pressure Mean [Right Arm] Blood Pressure Source [Right Arm] Blood Pressure Position [Right Arm] 02 Sat by Pulse Oximetry 96 96 92 L Oxygen Delivery Method Room Air Room Air Room Air 08/01/23 16:00 08/01/23 16:30 Temperature Temperature Source Pulse Rate 70 65 Pulse Rate [Radial] Respiratory Rate 14 18 Blood Pressure 129/69 129/70 Blood Pressure [Right Arm] Blood Pressure Mean Blood Pressure Mean [Right Arm] Blood Pressure Source [Right Arm] Blood Pressure Position [Right Arm] 02 Sat by Pulse Oximetry 91 L 91 L Oxygen Delivery Method Room Air Room Air Lab Data Lab results reviewed: Yes I reviewed the patient's lab results. Lab Results 08/01/23 13:30: WBC 7.5, RBC 4.90, Hgb 14.5, Hct 47.6 H, MCV 97.2, MCH 29.7, MCHC 30.5 L, RDW 13.3, Plt Count 246, MPV 9.9, Neut % (Auto) 68.9, Lymph % (Auto) 22.3, Rich % (Auto) 6.9, Eos % (Auto) 1.3, Baso % (Auto) 0.6, Neut # (Auto) 5.2, Lymph # (Auto) 1.7, Rich # (Auto) 0.5, Eos # (Auto) 0.1, Baso # (Auto) 0.1, D-Dimer 0.69 H, Sodium 139, Potassium 4.7, Chloride 103, Carbon Dioxide 29, Anion Gap 11.7, BUN 36 H, Creatinine 1.10 H, Estimated Creat Clear 43, Estimated GFR 48 L, Est GFR ( Amer) 58 L, Glucose 105 H, Calcium 9.6, Magnesium 1.7, Total Bilirubin 0.8, AST 68 H, ALT 27, Alkaline Phosphatase 136 H , Troponin I < 0.01, NT-Pro-B Natriuret Pep 98.9, Total Protein 7.4, Albumin 4.3, Globulin 3.1, Albumin/Globulin Ratio 1.4, TSH 2.57 08/01/23 16:19: Troponin I < 0.01 08/01/23 13:30 08/01/23 13:30 Orders (Tests/Meds): ED MEDICATIONS Discontinued Medications Generic Name Dose Route Start Last Admin Trade Name Laura PRN Reason Stop Dose Admin Diltiazem HCl 15 mg 08/01/23 13:34 08/01/23 13:39 Diltiazem 25mg/5ml Vial IV 08/01/23 13:35 15 mg ONCE ONE Administration Diltiazem HCl 30 mg 08/01/23 13:52 08/01/23 13:59 Diltiazem 30mg Tablet PO 08/01/23 13:53 30 mg ONCE ONE Administration ORDERS Category Date Time Status CXR --portable [XR chest portable] Stat Exams 08/01/23 13:34 Completed BNP [Brain Natriuretic Peptide] Stat Lab 08/01/23 13:30 Completed CBC w/Auto Diff [Complete Blood Count Auto Diff] Stat Lab 08/01/23 13:30 Completed CMP [Comprehensive Metabolic Panel] Stat Lab 08/01/23 13:30 Completed D-Dimer Stat Lab 08/01/23 13:30 Completed Magnesium Stat Lab 08/01/23 13:30 Completed TSH [Thyroid Stimulating Hormone] Stat Lab 08/01/23 13:30 Completed Trop I [Troponin I] Stat Lab 08/01/23 13:30 Completed Troponin I Q3H Lab 08/01/23 16:19 Completed Troponin I Q3H Lab 08/01/23 19:45 [facility] 08/01/23 13:25 Completed ECG [facility] 08/01/23 13:50 Completed Medical Decision Narrative: EKG performed as well as rhythm strip performed which I personally interpreted which shows a ventricular rate of 91, the rhythm is atrial fibrillation there are occasional sinus beats but mainly no discernible P waves no significant block there is normal axis no acute ST segment elevations or depressions this is consistent with atrial fibrillation no ventricular ectopy. This is an 82-year-old female presenting today after a lidocaine injection in her knee the procedure went well I do not suspect systemic toxicity from her local anesthetic rather she is presenting with atrial fibrillation with RVR. On the initial EKG her heart rate was in the 90s but clinically during the majority of my evaluation has been between 120 and 150 without any regularity to it and the rhythm strip was also consistent with A-fib RVR. No acute ischemic changes however the patient did have some dyspnea associate with this likely cardiac output related and rate related. I will initiate diltiazem bolus and infusion. Patient has a CHADS2 Vascor of 3 with suggest that she should be anticoagulated. Will make anticoagulation decision after the remainder of her workup is complete. Serial troponins will be ordered I do not suspect that this is acute myocardial infarction but certainly remains in the differential. Also from a restratification standpoint could be a pulmonary embolism with associated arrhythmia and myocardial injury. Will check her electrolytes thyroid function etc. Reassessment will be done after this initial workup is complete an initial bolus of diltiazem has been performed. Reassessment 1:54 PM after the initial bolus of diltiazem she had a good ventricular response and converted into a normal sinus rhythm. Repeat EKG performed I personally interpreted shows a ventricular rate of 72 now with discernible P waves she does have a first-degree AV block with a [place] interval of 254 looking at old EKGs this is something she has had the past. No acute ischemic changes noted no other conduction abnormalities noted at this point there is normal axis on this EKG. Given the fact that she converted into sinus rhythm her working diagnosis was atrial fibrillation with rapid ventricular response but now the A-fib is defined as paroxysmal given its termination. She still is at some risk for thromboembolism. She has a CHADS2 Vascor that is elevated as stated above and still is a candidate for anticoagulation. Oral dose of diltiazem was given after initial workup is complete and a second troponin if she remains in sinus rhythm she may be stable for outpatient management with oral diltiazem and Eliquis and close outpatient cardiology follow-up. Care will be transitioned to Dr. Shravan Leach for further evaluation and treatment. Reassessment 2:48 PM patient very stable remains in normal sinus rhythm initial troponin is negative D-dimer below years criteria. Will get a second troponin ED observation order will be placed at 2:50 PM. I anticipate that if she is still in this rhythm that she will be able to be safely discharged a prescription of diltiazem and Eliquis have been sent to her pharmacy and she has been given a referral to Dr. Villagomez in the event that she remained stable and her second troponin is negative. Care will be transitioned to Dr. Shravan Leach at 3 PM for further evaluation and treatment. <Shravan Leach MD - Last Filed: 08/01/23 17:25> Vital Signs: 08/01/23 13:21 08/01/23 13:36 08/01/23 14:00 Temperature 97.9 F Temperature Source Oral Pulse Rate 114 H 71 Pulse Rate [Radial] 118 H Respiratory Rate 16 14 13 Blood Pressure 145/88 H 150/84 H Blood Pressure [Right Arm] 154/89 H Blood Pressure Mean 102 106 Blood Pressure Mean [Right Arm] 110 Blood Pressure Source [Right Arm] Automatic Cuff Blood Pressure Position [Right Arm] Sitting 02 Sat by Pulse Oximetry 95 95 96 Oxygen Delivery Method Room Air Room Air 08/01/23 14:30 08/01/23 15:00 08/01/23 15:30 Temperature Temperature Source Pulse Rate 71 69 65 Pulse Rate [Radial] Respiratory Rate 16 14 12 Blood Pressure 142/73 H 143/77 H 137/74 Blood Pressure [Right Arm] Blood Pressure Mean 108 99 Blood Pressure Mean [Right Arm] Blood Pressure Source [Right Arm] Blood Pressure Position [Right Arm] 02 Sat by Pulse Oximetry 96 96 92 L Oxygen Delivery Method Room Air Room Air Room Air 08/01/23 16:00 08/01/23 16:30 Temperature Temperature Source Pulse Rate 70 65 Pulse Rate [Radial] Respiratory Rate 14 18 Blood Pressure 129/69 129/70 Blood Pressure [Right Arm] Blood Pressure Mean Blood Pressure Mean [Right Arm] Blood Pressure Source [Right Arm] Blood Pressure Position [Right Arm] 02 Sat by Pulse Oximetry 91 L 91 L Oxygen Delivery Method Room Air Room Air Lab Data Lab Results 08/01/23 13:30: WBC 7.5, RBC 4.90, Hgb 14.5, Hct 47.6 H, MCV 97.2, MCH 29.7, MCHC 30.5 L, RDW 13.3, Plt Count 246, MPV 9.9, Neut % (Auto) 68.9, Lymph % (Auto) 22.3, Rich % (Auto) 6.9, Eos % (Auto) 1.3, Baso % (Auto) 0.6, Neut # (Auto) 5.2, Lymph # (Auto) 1.7, Rich # (Auto) 0.5, Eos # (Auto) 0.1, Baso # (Auto) 0.1, D-Dimer 0.69 H, Sodium 139, Potassium 4.7, Chloride 103, Carbon Dioxide 29, Anion Gap 11.7, BUN 36 H, Creatinine 1.10 H, Estimated Creat Clear 43, Estimated GFR 48 L, Est GFR ( Amer) 58 L, Glucose 105 H, Calcium 9.6, Magnesium 1.7, Total Bilirubin 0.8, AST 68 H, ALT 27, Alkaline Phosphatase 136 H , Troponin I < 0.01, NT-Pro-B Natriuret Pep 98.9, Total Protein 7.4, Albumin 4.3, Globulin 3.1, Albumin/Globulin Ratio 1.4, TSH 2.57 08/01/23 16:19: Troponin I < 0.01 Orders (Tests/Meds): ED MEDICATIONS Discontinued Medications Generic Name Dose Route Start Last Admin Trade Name Freq PRN Reason Stop Dose Admin Diltiazem HCl 15 mg 08/01/23 13:34 08/01/23 13:39 Diltiazem 25mg/5ml Vial IV 08/01/23 13:35 15 mg ONCE ONE Administration Diltiazem HCl 30 mg 08/01/23 13:52 08/01/23 13:59 Diltiazem 30mg Tablet PO 08/01/23 13:53 30 mg ONCE ONE Administration ORDERS Category Date Time Status CXR --portable [XR chest portable] Stat Exams 08/01/23 13:34 Completed BNP [Brain Natriuretic Peptide] Stat Lab 08/01/23 13:30 Completed CBC w/Auto Diff [Complete Blood Count Auto Diff] Stat Lab 08/01/23 13:30 Completed CMP [Comprehensive Metabolic Panel] Stat Lab 08/01/23 13:30 Completed D-Dimer Stat Lab 08/01/23 13:30 Completed Magnesium Stat Lab 08/01/23 13:30 Completed TSH [Thyroid Stimulating Hormone] Stat Lab 08/01/23 13:30 Completed Trop I [Troponin I] Stat Lab 08/01/23 13:30 Completed Troponin I Q3H Lab 08/01/23 16:19 Completed Troponin I Q3H Lab 08/01/23 19:45 Ordered ECG initial [facility] Routine Y 08/01/23 13:25 Completed ECG repeat same [facility] Routine Y 08/01/23 13:50 Completed Medical Decision Narrative: EKG performed as well as rhythm strip performed which I personally interpreted which shows a ventricular rate of 91, the rhythm is atrial fibrillation there are occasional sinus beats but mainly no discernible P waves no significant block there is normal axis no acute ST segment elevations or depressions this is consistent with atrial fibrillation no ventricular ectopy. This is an 82-year-old female presenting today after a lidocaine injection in her knee the procedure went well I do not suspect systemic toxicity from her local anesthetic rather she is presenting with atrial fibrillation with RVR. On the initial EKG her heart rate was in the 90s but clinically during the majority of my evaluation has been between 120 and 150 without any regularity to it and the rhythm strip was also consistent with A-fib RVR. No acute ischemic changes however the patient did have some dyspnea associate with this likely cardiac output related and rate related. I will initiate diltiazem bolus and infusion. Patient has a CHADS2 Vascor of 3 with suggest that she should be anticoagulated. Will make anticoagulation decision after the remainder of her workup is complet e. Serial troponins will be ordered I do not suspect that this is acute myocardial infarction but certainly remains in the differential. Also from a restratification standpoint could be a pulmonary embolism with associated arrhythmia and myocardial injury. Will check her electrolytes thyroid function etc. Reassessment will be done after this initial workup is complete an initial bolus of diltiazem has been performed. Reassessment 1:54 PM after the initial bolus of diltiazem she had a good v entricular response and converted into a normal sinus rhythm. Repeat EKG performed I personally interpreted shows a ventricular rate of 72 now with discernible P waves she does have a first-degree AV block with a [place] interval of 254 looking at old EKGs this is something she has had the past. No acute ischemic changes noted no other conduction abnormalities noted at this point there is normal axis on this EKG. Given the fact that she converted into sinus rhythm her working diagnosis was atrial fibrillation with rapid ventricular response but now the A-fib is defined as paroxysmal given its termination. She still is at some risk for thromboembolism. She has a CHADS2 Vascor that is elevated as stated above and still is a candidate for anticoagulation. Oral dose of diltiazem was given after initial workup is complete and a second troponin if she remains in sinus rhythm she may be stable for outpatient management with oral diltiazem and Eliquis and close outpatient cardiology follow-up. Care will be transitioned to Dr. Shravan Leach for further evaluation and treatment. Reassessment 2:48 PM patient very stable remains in normal sinus rhythm initial troponin is negative D-dimer below years criteria. Will get a second troponin ED observation order will be placed at 2:50 PM. I anticipate that if she is still in this rhythm that she will be able to be safely discharged a prescrip tion of diltiazem and Eliquis have been sent to her pharmacy and she has been given a referral to Dr. Villagomez in the event that she remained stable and her second troponin is negative. Care will be transitioned to Dr. Shravan Leach at 3 PM for further evaluation and treatment. Haylee: I assume primary responsibility for this patient after signout from previous physician. Delta troponin negative. It was reiterated to the patient that she should continue diltiazem as well as anticoagulation until following up with cardiology, she voiced understanding. Total observation time 2.5 hours. Because patient at baseline without signs or symptoms of clinical decompensation, deemed appropriate for discharge. Results were relayed to patient who voiced understanding and were agreeable to outpatient management and follow up. At the time of discharge the patient was hemodynamically stable, tolerating PO, and mobilizing appropriately. Critical Care <Julissa Shetty MD - Last Filed: 08/01/23 14:50> Critical Care Time Critical Care Time: Yes Attestation: On 08/01/23, the high probability of a clinically significant, sudden or life threatening deterioration of the following system(s) required my full and direct attention, intervention and personal management. The time I documented below is in addition to time spent performing reported procedures but includes the foll owing listed in this critical care notation. Total Time Total Critical Care Time: 35
[2023-08-01] MEDS: dilTIAZem 25MG/5ML VIAL 15 MG IV (13:39)
--- NOTE | 2023-08-01 13:50 | ECG_ITS ---
APPROVED REPORT Exam: Resting ECG HR:72 bpm ECG Measurements Heart Rate 72 AXES TN 254 P -41 QRSd 83 QRS 4 QT 344 T 16 QTc 368 Conclusion SINUS RHYTHM WITH FIRST DEGREE AV BLOCK ABNORMAL ECG UNCONFIRMED REPORT Electronically signed by : Jalen Bailey MD 08/02/2023 08:37:18
[2023-08-01 13:56] LABS: Basophils # 0.1 K/mm3 (0-0.2); Basophils % 0.6 % (0.1-2.0); Eosinophils # 0.1 K/mm3 (0.0-0.4); Eosinophils % 1.3 % (0.1-12.0); Hematocrit 47.6 % (37.0-47.0); Hemoglobin 14.5 g/dL (12.2-16.2); Lymphocytes # 1.7 K/mm3 (0.7-4.5); Lymphocytes % 22.3 % (10-50); Mean Corpuscular HGB Conc 30.5 g/dL (31.8-35.4); Mean Corpuscular Hemoglobin 29.7 pg (27.0-31.2); Mean Corpuscular Volume 97.2 fl (81-99); Mean Platelet Volume 9.9 fl (7.4-10.4); Monocytes # 0.5 K/mm3 (0.1-1.0); Monocytes % 6.9 % (1.7-9.3); Neutrophils # 5.2 K/mm3 (1.8-7.8); Neutrophils % 68.9 % (37.0-80.0); Platelet Count 246 K/mm3 (142-424); Red Cell Distribution Width 13.3 % (11.5-17.5); White Blood Count 7.5 K/mm3 (4.8-10.8)
[2023-08-01] MEDS: dilTIAZem 30MG TABLET 30 MG PO (13:59)
[2023-08-01 14:13] LABS: D-Dimer 0.69 ug/mL (0.0-0.5)
[2023-08-01 14:15] LABS: Chloride 103 mmol/L (98-107); Potassium 4.7 mmoL/L (3.5-5.1); Sodium 139 mmol/L (136-145)
[2023-08-01 14:18] LABS: Alanine Aminotransferase 27 U/L (12-78); Albumin Level 4.3 g/dl (3.5-5.0); Albumin/Globulin Ratio 1.4 (1.1-1.8); Alkaline Phosphatase 136 U/L (38-126); Anion Gap 11.7 mEq/L (5-15); Aspartate Amino Transferase 68 U/L (14-36); Bilirubin,Total 0.8 mg/dl (0.2-1.3); Blood Urea Nitrogen 36 mg/dl (7-17); Calcium 9.6 mg/dl (8.4-10.2); Carbon Dioxide 29 mmol/L (22.0-30.0); Creatinine Clearance Estimated 43 mL/min (50-200); Estimated Glomerular Filt Rate 48 ml/min (>60); GFR (African American) 58 ML/MIN (>60); Globulin 3.1 g/dL (1.3-3.2); Glucose 105 mg/dl (74-100); Total Protein,Serum 7.4 g/dl (6.3-8.2)
[2023-08-01 14:19] LABS: Magnesium 1.7 mg/dl (1.6-2.3)
[2023-08-01 14:28] LABS: NT Pro Brain Natriuretic Pep. 98.9 pg/mL (0-450)
[2023-08-01 14:32] LABS: Troponin I < 0.01 ng/ml (0.00-0.034)
[2023-08-01 14:49] LABS: Thyroid Stimulating Hormone 2.57 uIU/mL (0.465-4.68)
[2023-08-01 16:48] LABS: Troponin I < 0.01 ng/ml (0.00-0.034)
== END 2023-08-01 17:36 | disposition home or self-care (01) ==
PROVIDERS: Student in an Organized Health Care Education/Training Program; Emergency Provider Emergency Medicine; PCP Family Medicine
DX: I48.91 Unspecified atrial fibrillation (principal); I44.0 Atrioventricular block, first degree; M17.12 Unilateral primary osteoarthritis, left knee; M81.0 Age-related osteoporosis without current pathological fracture; R07.89 Other chest pain
CPT/HCPCS: 71045; 80053; 83735; 83880; 84443; 84484; 85025; 85378; 93005; 96374; 99285; J1040

== ENCOUNTER → 2023-08-16 12:59 | Outpatient (POV) | payer MEDICARE, SELFPAY ==
[2023-08-16 13:26] VITALS: BP 124/54; PULSE 127; RESP 20; O2SAT 97; BMI 24.0
--- NOTE | 2023-08-16 13:59 | EXP.PAIN.SOA ---
[facility] Pain Management SOAP Note Subjective:: Patient is a pleasant 82-year-old female who presents today for follow-up of left knee trigger point injections on 08/01/2023. We are currently treating the patient for left knee pain, left knee osteoarthritis. Today she rates her pain a 7 out of 10. Patient denies any new trauma or injury. Patient when she went for this injection she stated that she was having increased heart rate and blood pressure. Patient states she ended up going to the ER for evaluation and was diagnosed with A-fib. Patient states she was prescribed a medication however when they went to pick this up the pharmacist or employee there at the pharmacy stated that that was not a good medication for her to be on and so the states that they have never taking the medication out of the prescription bag. Patient does state that she is got an upcoming appointment with her primary care provider Dr. Urbano for she did want to discuss the medication with. Patient does state that she was also told to make a follow-up appointment with a director of institutional research such as Dr. Villagomez's office however she has not done this either at this point. Patient states she is planning on to do this after Dr. Urbano's appointment. Patient does state that she had minimal improvement following these trigger point injections. She states she continues to have chronic pain in her left knee that is an aching, throbbing sensation that is worse with increased ambulation or activity. She states the pain does interfere with her ability perform activities of daily living such as cooking and cleaning. Patient does have hardware in her tibia from a previous surgery. Patient states she was told in the past that she was not a candidate for a knee replacement due to the kev that is in place. Patient continues to use her compounded cream along with lidocaine patches at and around her knee. Patient states that she has not done any gel injections and that when she went and saw Dr. Mena in the past he did not think the gel injections would be beneficial and had went ahead to refer her to our office. She is currently managed with pregabalin 300 mg 3 times a day and [place] 7.5 mg 3 times a day from her PCP and compounded cream from our office. Patient denies any side effects from this medication. Her Josef has been reviewed. Review of Systems: General: No recent weight changes, no fever, no sleep disturbances Respiratory: No cough, no shortness of air, no recurring pulmonary infections Cardiovascular/peripheral vascular: No chest pain, no palpitations, no edema, no shortness of breath Gastrointestinal: No new onset incontinence, normal bowel movements reported Genitourinary: No new onset incontinence Musculoskeletal: Left knee pain Psychiatric: [Normal mood/affect] Neurological: [Denies weakness in extremities], [denies balance issues] Objective:: Physical Exam: General: Alert and oriented x3, no acute distress, pleasant and cooperative Lungs: Respirations even and unlabored, symmetrical chest expansion Eyes: PERRL Musculoskeletal: Flexion and extension of left knee somewhat guarded secondary to pain, [antalgic gait noted] Neurological: Speech clear, no gross sensory deficit Assessment:: Left knee pain, left knee osteoarthritis Plan:: I have discussed with the patient due to not having any improvement following intra-articular knee injections or trigger point injections surrounding the knee to target the nerves that I would recommend she follow back up with Dr. Mena for possible gel injection. I have also discussed with the patient in future if she still does not get relief with this she may be a beneficial candidate for a peripheral nerve stimulator. We will follow-up with this at additional visits. I have counseled the patient that I do highly recommend that she make a appointment with Dr. Villagomez's office regarding the A-fib diagnosis and taking the medication as prescribed. We will send referral back to Dr. Reece Mena for left knee gel injection. Patient will return to clinic in 1 month for reevaluation of symptoms and plan of care. Patient has been instructed to contact the clinic with any concerns before the next appointment. Dr. Barrientos has reviewed this note and agrees with this plan of care. This note was dictated using voice recognition software and make contain errors or omissions. [facility] Disclaimer: The information contained in this section may have been updated after the patient was seen, as this information can be updated by other users. Medical History Osteoarthritis Social History Smoking Status: Never smoker alcohol intake: never substance use type: denies use current occupational status: retired Travel in the last 8 weeks: None household members: spouse housing: house caffeine: No
== END ==
LOC: SC.PAIN 12:59
PROVIDERS: PCP Family Medicine; Visit Provider Nurse Practitioner Family
DX: M17.12 Unilateral primary osteoarthritis, left knee (principal); M25.562 Pain in left knee
CPT/HCPCS: 99212; G0463

== ENCOUNTER 2023-08-29 11:31 | Outpatient (CLI) | payer MEDICARE, SELFPAY | END 2023-08-29 23:59 | LOC: RT 11:32 | PROVIDERS: PCP Family Medicine; Visit Provider Physician Assistant | DX: I48.0 Paroxysmal atrial fibrillation (principal); R94.31 Abnormal electrocardiogram [ECG] [EKG] | CPT/HCPCS: 93225 ==

== ENCOUNTER 2023-08-31 11:04 | Outpatient (CLI) | payer MEDICARE, SELFPAY | END 2023-08-31 23:59 | LOC: RT 11:05 | PROVIDERS: PCP Family Medicine; Visit Provider Physician Assistant | DX: I48.0 Paroxysmal atrial fibrillation (principal); R94.31 Abnormal electrocardiogram [ECG] [EKG] | CPT/HCPCS: 93270 ==

== ENCOUNTER 2023-09-11 12:37 | Outpatient (CLI) | payer MEDICARE, SELFPAY ==
--- NOTE | 2023-09-11 12:40 | CA_ITS ---
APPROVED REPORT EXAM: Comprehensive 2D, Doppler, and color-flow Echocardiogram Relief Map Modeler: Binta Whitehead CRT Ht: 5 ft 6 in Wt: 158lbs BSA: 1.81 BP: 155/61 mmHg Indications: ABN EKG, AFIB, TDE-KYPHOSIS. LIMITED IMAGES 2D Dimensions LA Volume 30.30 mL LA Volume Index 16.40 mL/m2 (M/F) 16-34 M-Mode Dimensions RVDd 1.97 cm (0.9-2.6) LA Diam 2.11 cm (1.9-4.0) LVDd 3.24 cm (3.5-5.7) LVDs 2.18 cm (3.5-5.7) IVSd 1.90 cm (0.6-1.1) PWd 0.79 cm (0.6-1.1) EF (Teich) 62.60% FS 32.70% EDV (Teich) 42.20 mL ESV (Teich) 15.80 mL LV Diastology E Decel Time 90 (160-240 msec) E/A Ratio 0.52 Aortic Valve AI PHT 520.00 ms AO Peak GR. 4.80 mmHg Mitral Valve MV A Velocity 70.0 (40-130 cm/s) E/A Ratio 0.52 Tricuspid Valve TR P. Velocity 244.00 cm/s RAP Estimate 10.00 mmHg RVSP 33.80 mmHg Left Ventricle The left ventricle is normal size. The left ventricular systolic function is normal. The left ventricular ejection fraction is within the normal range. There is increased LV wall thickness. There is normal LV segmental wall motion. Transmitral Doppler flow pattern suggests impaired LV relaxation. LVEF is 55%. Right Ventricle The right ventricular systolic function is normal. Atria The left atrium size is normal. The right atrium size is normal. The interatrial septum is not well-visualized. Aortic Valve The aortic valve is mildly thickened. There is no aortic valvular stenosis. Mild aortic regurgitation. Mitral Valve The mitral valve leaflets are mildly thickened. No evidence of mitral valve stenosis. There is no mitral valve regurgitation noted. Tricuspid Valve The tricuspid valve leaflets are thin and pliable. Trace tricuspid regurgitation. There is insufficient TR jet to estimate RVSP. Pulmonic Valve The pulmonary valve is normal in structure. Trace pulmonic regurgitation. Great Vessels The aortic root is normal in size. The ascending aorta is normal in size. IVC is normal in size and collapses >50% with inspiration. Pericardium There is no pericardial effusion. Other Information Study Quality: Technically Difficult Conclusion Technically difficult study due to poor acoustic windows. Normal biventricular systolic function. Mild AI. Electronically signed by : Chantal Moore MD 09/13/2023 13:09:32
== END 2023-09-11 23:59 ==
LOC: RT 12:40
PROVIDERS: PCP Family Medicine; Visit Provider Physician Assistant
DX: I48.0 Paroxysmal atrial fibrillation (principal); R94.31 Abnormal electrocardiogram [ECG] [EKG]
CPT/HCPCS: 93306

== ENCOUNTER 2023-09-14 09:37 | Outpatient (POV) | payer MEDICARE, SELFPAY ==
--- NOTE | 2023-09-14 10:09 | EXP.PAIN.SOA ---
[facility] Pain Management SOAP Note Subjective:: Patient is a pleasant 82-year-old female who presents today for follow-up. We are currently treating the patient for left knee pain, left knee osteoarthritis. Today she rates her pain an 8 out of 10. Patient denies any new trauma or injury. Patient denies any change to location or type of pain she experiences. Patient has tried injection therapy for her knee at our office however she has had very minimal improvement. These included both intra-articular injections as well as trigger point injections in and around the left knee targeting the nerves. At our last visit we did discuss gel injections however she was counseled that our office does not do these. Patient was recommended to go back to Dr. Mena's office for evaluation of this procedure. Patient states that she has not made it back over to their office. She states that she did not hear from them. At her last visit she was also experiencing heart related issues and was diagnosed with A-fib. Patient states that she is still being evaluated regarding this. She states she is scheduled for a follow-up with Dr. Villagomez's office on 25 September and she is currently wearing a Holter monitor. Patient is currently managed with pregabalin 300 mg 3 times a day and [place] 7.5 mg 3 times a day from her primary care provider and compounded cream office. States that the compounded cream is still helping some. Her Josef has been reviewed and is appropriate. Review of Systems: General: No recent weight changes, no fever, no sleep disturbances Respiratory: No cough, no shortness of air, no recurring pulmonary infections Cardiovascular/peripheral vascular: No chest pain, no palpitations, no edema, no shortness of breath Gastrointestinal: No new onset incontinence, normal bowel movements reported Genitourinary: No new onset incontinence Musculoskeletal: Left knee pain Psychiatric: [Normal mood/affect] Neurological: [Denies weakness in extremities], [denies balance issues] Objective:: Physical Exam: General: Alert and oriented x3, no acute distress, pleasant and cooperative Lungs: Respirations even and unlabored, symmetrical chest expansion Eyes: PERRL Musculoskeletal: Flexion and extension of left knee somewhat guarded secondary to pain, [antalgic gait noted] Neurological: Speech clear, no gross sensory deficit Assessment:: Left knee pain/osteoarthritis Plan:: Patient continues to have pain with her left knee and limited range of motion. I have counseled the patient to go next-door when she leaves our office to get a follow-up appointment with Dr. Mena regarding possible gel injection. I have also discussed with patient in future we could always try a spinal cord stimulator trial however we would have to also talk to Dr. Villagomez's office and confirm that there are no contraindications for this. Patient will return to clinic in 2 months for reevaluation of symptoms and plan of care. Patient has been instructed to contact the clinic with any concerns before the next appointment. Dr. Barrientos has reviewed this note and agrees with this plan of care. This note was dictated using voice recognition software and make contain errors or omissions. [facility] Disclaimer: The information contained in this section may have been updated after the patient was seen, as this information can be updated by other users. Medical History (Updated 08/29/23 @ 11:13 by Eliu Hopkins RN) Abnormal ECG Atrial fibrillation with RVR Edema Fibromyalgia Osteoarthritis Osteoporosis Seizure disorder Family History Other Heart attack Social History Smoking Status: Never smoker alcohol intake: never substance use type: denies use current occupational status: retired Travel in the last 8 weeks: None household members: spouse housing: house caffeine: No
[2023-09-14 11:22] VITALS: BP 181/76; PULSE 75; RESP 18; O2SAT 98; BMI 23.3
== END 2023-09-14 23:59 ==
LOC: SC.PAIN 09:37
PROVIDERS: PCP Family Medicine; Visit Provider Nurse Practitioner Family
DX: M17.12 Unilateral primary osteoarthritis, left knee (principal); M25.562 Pain in left knee
CPT/HCPCS: 99212; G0463

== ENCOUNTER 2023-11-09 09:55 | Outpatient (POV) | payer MEDICARE, SELFPAY ==
[2023-11-09 09:59] VITALS: BP 147/60; PULSE 72; RESP 18; O2SAT 98; BMI 23.5
--- NOTE | 2023-11-09 10:23 | A.OFFVIS_ITS ---
[facility] Pain Management SOAP Note Subjective:: Patient is a pleasant 83-year-old female who presents today for follow-up. Today she rates her pain an 8 out of 10. Patient denies any new trauma or injury. She states that she continues to have pain in the left knee. She states from our last visit she did go back to Dr. Mena who did do a gel injection however it only lasted about 2 days. Patient states she is back to her baseline today. Patient describes her pain as constant and does interfere with her ability perform activities of daily living. Patient does state that she did end up going to Dr. Urbano a few weeks ago and he did give her a cortisone injection that did help for a couple of weeks. Patient does state that it is still short-lived. Patient does have heart issues and does have a kev that they do have to work around regarding the left knee. Patient states that Dr. Mena was stating that he could send her to a specialist that could do her knee replacement and had experience with dealing with the additional hardware present. Patient states that this was an office in the city and that she was not able to get to this appointment and is unsure if she wants to go that route. Patient is prescribed pregabalin and [place] from her primary care provider and compounded cream from our office. Patient states the cream does still help and denies any side effects. Her Josef has been reviewed and is appropriate. Review of Systems: General: No recent weight changes, no fever, no sleep disturbances Respiratory: No cough, no shortness of air, no recurring pulmonary infections Cardiovascular/peripheral vascular: No chest pain, no palpitations, no edema, no shortness of breath Gastrointestinal: No new onset incontinence, normal bowel movements reported Genitourinary: No new onset incontinence Musculoskeletal: Left knee pain Psychiatric: [Normal mood/affect] Neurological: [Denies weakness in extremities], [denies balance issues] Objective:: Physical Exam: General: Alert and oriented x3, no acute distress, pleasant and cooperative Lungs: Respirations even and unlabored, symmetrical chest expansion Eyes: PERRL Musculoskeletal: Flexion and extension of left knee somewhat guarded secondary to pain, [antalgic gait noted] Neurological: Speech clear, no gross sensory deficit Assessment:: Left knee pain/osteoarthritis Plan:: Patient continues to experience significant pain related to her left knee. I have discussed with patient that Dr. Barrientos had mentioned about possibly doing infrapatellar nerve blocks and possible peripheral nerve stimulator. I did give educational handouts regarding the stimulator at today's visit. Patient and her will contact our office for their next follow-up if they wish to proceed forward with these options. Patient has been instructed to contact the clinic with any concerns before the next appointment. Dr. Barrientos has reviewed this note and agrees with this plan of care. This note was dictated using voice recognition software and make contain errors or omissions. [facility] Disclaimer: The information contained in this section may have been updated after the patient was seen, as this information can be updated by other users. Medical History Paroxysmal atrial fibrillation First degree AV block History of tibial fracture Polymyalgia rheumatica Sepsis Acute kidney injury E-coli UTI Fracture of superior ramus of right pubis Confusion Arthralgia Osteoarthritis of left knee Degenerative disc disease, lumbar Degenerative disc disease, thoracic Chronic pain disorder Bilateral knee pain Abnormal ECG Atrial fibrillation with RVR Osteoarthritis Edema Osteoporosis Seizure disorder Fibromyalgia Family History Other Heart attack Social History Smoking Status: Never smoker alcohol intake: never substance use type: denies use current occupational status: other Travel in the last 8 weeks: None household members: spouse housing: house caffeine: No
== END 2023-11-09 23:59 | disposition home or self-care (01) ==
LOC: SC.PAIN 09:57
PROVIDERS: PCP Family Medicine; Visit Provider Nurse Practitioner Family
DX: M17.12 Unilateral primary osteoarthritis, left knee (principal); M25.562 Pain in left knee
CPT/HCPCS: 99212; G0463

== ENCOUNTER 2024-03-21 11:06 | Emergency (ER) | payer MEDICARE, SELFPAY ==
[2024-03-21 11:25] VITALS: BP 160/72; PULSE 72; RESP 18; TEMP 36.6; O2SAT 95; BMI 24.2
--- NOTE | 2024-03-21 11:27 | XR_ITS ---
FINAL REPORT CLINICAL HISTORY: Fall, shoulder pain COMPARISON: None FINDINGS: RIGHT SHOULDER 3 views demonstrate no acute fracture or dislocation. Mild degenerative changes are noted. The visualized bony structures are well aligned. No soft tissue abnormality is seen. IMPRESSION: Degenerative changes without acute process. Reviewed, Interpreted and Dictated by Darryl Rosado III, MD Transcribed by Jenifer Casas Authenticated and [facility]
--- NOTE | 2024-03-21 11:27 | XR_ITS ---
FINAL REPORT CLINICAL HISTORY: Fall, shoulder pain COMPARISON: None FINDINGS: RIGHT CLAVICLE Two views of the right clavicle were obtained. There is no acute fracture or dislocation. Mild degenerative changes are noted. There is no acute soft tissue abnormality. IMPRESSION: Degenerative changes without acute abnormality identified. Reviewed, Interpreted and Dictated by Darryl Rosado III, MD Transcribed by Jenifer Casas Authenticated and [facility]
--- NOTE | 2024-03-21 12:14 | EXP.UTC ---
Discharge Plan Disposition Patient Disposition: Home, Self-Care Condition: Good Prescriptions Prescriptions: No Action (DME) hydrocolloid dressing [DuoDERM CGF Dressing] 4 X 4 bandage See Rx Instructions .Route Qty: 5 10RF Rx Instructions: As directed acyclovir 200 mg capsule 200 mg PO DAILY Qty: 30 0RF celecoxib 200 mg capsule See Rx Instructions .ROUTE .COMPLEX Qty: 90 3RF Rx Instructions: TAKE ONE CAPSULE BY MOUTH DAILY cholecalciferol (vitamin D3) 25 mcg (1,000 unit) tablet,chewable 25 mcg PO DAILY Qty: 90 3RF ergocalciferol (vitamin D2) [Drisdol] 1,250 mcg (50,000 unit) capsule 1,250 mcg PO WEEKLY Qty: 14 10RF cyanocobalamin (vitamin B-12) 1,000 mcg/mL solution 1,000 mcg IM ONCE Qty: 1 0RF potassium chloride 10 mEq tablet extended release 10 meq PO DAILY Qty: 90 0RF Rx Instructions: one with each torsemide torsemide 20 mg tablet 20 mg PO DAILY PRN (Reason: edema) Qty: 90 3RF potassium chloride 10 mEq capsule, extended release 10 meq PO DAILY Qty: 90 3RF pregabalin 300 mg capsule 300 mg PO TID Qty: 90 5RF hydrocodone-acetaminophen 7.5-325 mg tablet 1 tab PO Q8H PRN (Reason: pain) Qty: 90 0RF fluticasone propionate 50 mcg/actuation spray,suspension 2 spray intranasal DAILY Qty: 16 12RF Rx Instructions: administer into each nostril lidocaine 5 % adhesive patch,medicated See Rx Instructions .ROUTE .COMPLEX Qty: 30 10RF Rx Instructions: Apply 2 Patches topically as needed for pain from rib fracture. Leave on most painful area for up to 12 hours calcium carbonate 500 MG tablet 500 mg PO DAILY Referrals Follow up/Referrals: Itz Urbano MD [Primary Care Provider] - See instructions Activity Restrictions/Add. Instructions Additional Instructions/Restrictions: Clean wound area on buttock daily and change dressing as instructed in WIC Use Calmoseptine as instructed Follow up with your Family Doctor on Monday Make sure that you are changing positions frequently and reposition, move around, eat a healthy diet, do not sit for long periods of time on bony prominences Clinical Impressions Clinical Impression: Fall Qualifiers: Encounter type: initial encounter Qualified Code(s): W19.XXXA - Unspecified fall, initial encounter Instructions Patient Instructions: How to Prevent Pressure Ulcers, How To Perform RICE (Rest, Ice, Compress, Elevate) Print Language Print Language: Swazi Discharge ED Provider: Cayla Burns [facility] [place] HPI General Stated complaint: ao 03/11, right shoulder pain Mode of Arrival: Ambulatory Source of Information: Patient, Spouse and Relative Limitations: No Limitations Time Seen by Provider: 03/21/24 12:18 Description of Symptoms (Recalled from Triage Doc. by RN): FAMILY REPORTS THAT PATIENT FELL APPROX 1 WEEK AGO AND SON STATES WHEN HELPED PICK HER UP OFF OF THE FLOOR AND THEY HEARD A POP TO RIGHT SHOULDER AREA. PATIENT C/O PAIN TO THAT AREA HEENT Symptoms (Recalled from RN notes): Yes Resp Symptoms (Recalled from RN notes): No Skin Symptoms (Recalled from RN notes): No MS Symptoms (Recalled from RN notes): No Functional Status (Recalled from RN notes): WNL History of Present Illness Provider Complaint: Patient state that she feel about a week ago and as they was helping her up from the floor they felt a pop in her shoulder/collar bone area States that she has been having pain in her shoulder and collar bone area since States she is still using her arm but hurts when she tries to raise it States that she also has a small sore on her right buttock area that she wanted to get looked at that she has been using some calmoseptine on and it seems to be helping it Related Data Home Medications ?Medication ?Instructions ?Recorded ?Confirmed calcium carbonate 500 mg PO DAILY Supplement 03/28/21 02/21/24 Previous Rx's ?Medication ?Instructions ?Recorded acyclovir 200 mg capsule 200 mg PO DAILY . #30 caps 08/17/23 celecoxib 200 mg capsule See Rx Instructions .Route 08/17/23 .COMPLEX Pain #90 caps cholecalciferol (vitamin D3) 25 25 mcg PO DAILY Supplement #90 tabs 08/17/23 mcg (1,000 unit) chewable tablet ergocalciferol (vitamin D2) 1,250 1,250 mcg PO WEEKLY SUPPLIMENT #14 08/17/23 mcg (50,000 unit) capsule (Drisdol) caps hydrocolloid dressing 4 X 4 #5 ea 12/25/23 (DuoDERM CGF Dressing) potassium chloride 10 mEq 10 meq PO DAILY #90 caps 01/24/24 capsule,extended release potassium chloride 10 mEq 10 meq PO DAILY SUPPLIMENT #90 tabs 01/24/24 tablet,extended release torsemide 20 mg tablet 20 mg PO DAILY PRN edema #90 tabs 01/24/24 lidocaine 5 % topical patch See Rx Instructions .Route 02/07/24 .COMPLEX Pain #30 ea fluticasone propionate 50 2 spray intranasal DAILY #16 grams 02/21/24 mcg/actuation nasal spray,suspension hydrocodone 7.5 mg-acetaminophen 1 tab PO Q8H PRN pain #90 tabs 02/21/24 325 mg tablet pregabalin 300 mg capsule 300 mg PO TID neuropathy #90 caps 02/21/24 Allergies Allergy/AdvReac Type Severity Reaction Status Date / Time No Known Allergies Allergy Verified 02/21/24 10:38 Worker's Comp Is this a Worker's Comp case?: No [facility] Disclaimer: The information contained in this section may have been updated after the patient was seen, as this information can be updated by other users. Medical History Frequency of urination Paroxysmal atrial fibrillation First degree AV block History of tibial fracture Polymyalgia rheumatica Sepsis Acute kidney injury E-coli UTI Fracture of superior ramus of right pubis Confusion Arthralgia Osteoarthritis of left knee Degenerative disc disease, lumbar Degenerative disc disease, thoracic Chronic pain disorder Bilateral knee pain Abnormal ECG Atrial fibrillation with RVR Osteoarthritis Edema Osteoporosis Seizure disorder Fibromyalgia Surgical History History of appendectomy History of surgery on lower extremity Family History Other Heart attack Social History Smoking Status: Never smoker alcohol intake: never substance use type: denies use current occupational status: other Travel in the last 8 weeks: None household members: spouse housing: house caffeine: No ROS Obtained: Yes All systems reviewed & no additional complaints except as documented and Yes Systems reviewed as appropriate & no additional complaints except as documented Constitutional Constitutional: Reports system reviewed and no additional complaints, except as documented and Reports as per HPI ENT Ears, Nose, Mouth, and Throat: Reports system reviewed and no additional complaints, except as documented and Reports as per HPI Cardiovascular Cardiovascular: Reports system reviewed and no additional complaints, except as documented and Reports as per HPI Respiratory Respiratory: Reports system reviewed and no additional complaints, except as documented and Reports as per HPI Musculoskeletal Musculoskeletal: Reports system reviewed and no additional complaints, except as documented, Reports as per HPI and Reports other Comments: right shoulder blade pain, right shoulder pain Integumentary/Breasts Skin/Breast: Reports system reviewed and no additional complaints, except as documented, Reports as per HPI and Reports other Comments: small blister like area on her right buttock Physical Exam General General appearance: alert and in no apparent distress ENT ENT exam: Present mucous membranes moist Respiratory Respiratory exam: Present normal lung sounds bilaterally; Absent respiratory distress or wheezes Cardiovascular Cardiovascular exam: Present regular rate, normal rhythm and normal heart sounds Expanded Upper Extremity Exam Right: Shoulder exam: Present tenderness; Absent swelling, ecchymosis or erythema Arm exam: Present normal inspection Elbow exam: Present normal inspection Forearm/Wrist exam: Present normal inspection Neurological Exam Neurological exam: Present alert, oriented X3 and normal gait Skin Skin exam: Present other (small blister like area on her right buttock area, possible stage 2 pressure ulcer with minimal drainage) Medical Decision Making Josef Inquiry Pt receiving controlled substance: No Josef was queried for this patient: No Vital Signs: 03/21/24 11:25 Temperature 97.9 F Temperature Source Oral Pulse Rate [Left Brachial] 72 Respiratory Rate 18 Blood Pressure [Left Arm] 160/72 H Blood Pressure Mean [Left Arm] 101 Blood Pressure Source [Left Arm] Automatic Cuff Blood Pressure Position [Left Arm] Sitting 02 Sat by Pulse Oximetry 95 Oxygen Delivery Method Room Air Orders (Tests/Meds): ORDERS Category Date Time Status Clavicle XR right [XR clavicle RT] Stat Exams 03/21/24 11:27 Taken XR shoulder RT min 2V Stat Exams 03/21/24 11:27 Taken Radiology Data #1: Image(s): Clavicle Image Reviewed: Yes I have reviewed radiologist's interpretation Degenerative changes without acute abnormality identified #2: Image(s): Shoulder Image Reviewed: Yes I have reviewed radiologist's interpretation Degenerative changes without acute adnormality identified Medical Decision Narrative: Pictures obtained of the wound and will upload to chart, patient to continue to clean area with saline, apply Calmoseptine and use Allevyn dressing until seen by PCP on Monday for reevaluation Patient educated to change positions frequently, eat a healthy diet, make sure to drink plenty of fluids
[2024-03-21 13:20] VITALS: BP 160/72; PULSE 72; RESP 18; TEMP 36.6; O2SAT 95
== END 2024-03-21 13:23 | disposition home or self-care (01) ==
PROVIDERS: Emergency Provider Nurse Practitioner; PCP Family Medicine
DX: S49.91XA Unspecified injury of right shoulder and upper arm, initial encounter (principal); M25.511 Pain in right shoulder; W19.XXXA Unspecified fall, initial encounter; L89.312 Pressure ulcer of right buttock, stage 2
CPT/HCPCS: 73000; 73030; 99204; 99212; G0463

== ENCOUNTER 2024-10-16 11:00 | Outpatient (CLI) | payer MEDICARE, SELFPAY ==
[2024-10-16 20:14] LABS: Albumin Level 3.8 g/dl (3.5-5.0); Chloride 103 mmol/L (98-107); Potassium 4.3 mmoL/L (3.5-5.1); Sodium 142 mmol/L (136-145)
[2024-10-16 20:17] LABS: Alanine Aminotransferase 19 U/L (12-78); Albumin/Globulin Ratio 1.5 (1.1-1.8); Alkaline Phosphatase 174 U/L (38-126); Anion Gap 11.3 mEq/L (5-15); Aspartate Amino Transferase 32 U/L (14-36); Bilirubin,Total 0.6 mg/dl (0.2-1.3); Blood Urea Nitrogen 31 mg/dl (7-17); Calcium 9.4 mg/dl (8.4-10.2); Carbon Dioxide 32 mmol/L (22.0-30.0); Estimated Glomerular Filt Rate 31 ml/min (>60); GFR (African American) 37 ML/MIN (>60); Globulin 2.5 g/dL (1.3-3.2); Glucose 85 mg/dl (74-100); Total Protein,Serum 6.3 g/dl (6.3-8.2)
[2024-10-16 20:45] LABS: Thyroid Stimulating Hormone 1.88 uIU/mL (0.465-4.68)
== END 2024-10-16 23:59 | disposition home or self-care (01) ==
LOC: LAB.DROPOF 10-17 09:10
PROVIDERS: PCP Family Medicine; Visit Provider Family Medicine
DX: E86.0 Dehydration (principal); R60.9 Edema, unspecified
CPT/HCPCS: 80053; 84443

== ENCOUNTER 2024-11-20 10:22 | Outpatient (CLI) | payer MEDICARE, SELFPAY | END 2024-11-20 23:59 | disposition home or self-care (01) | LOC: LAB.DROPOF 11-21 08:34 | PROVIDERS: PCP Family Medicine; Visit Provider Family Medicine | DX: N39.0 Urinary tract infection, site not specified (principal); B96.20 Unspecified Escherichia coli [E. coli] as the cause of diseases classified elsewhere | CPT/HCPCS: 87086; 87088; 87186 ==

== ENCOUNTER 2024-12-02 09:28 | Outpatient (CLI) | payer MEDICARE, SELFPAY | END 2024-12-02 23:59 | disposition home or self-care (01) | LOC: LAB.DROPOF 20:33 | PROVIDERS: PCP Family Medicine; Visit Provider Family Medicine | DX: N39.0 Urinary tract infection, site not specified (principal) | CPT/HCPCS: 87086; 87088; 87186 ==

== ENCOUNTER 2025-03-18 13:00 | Outpatient (CLI) | payer MEDICARE, SELFPAY ==
[2025-03-18 19:17] LABS: Hematocrit 43.1 % (37.0-47.0); Hemoglobin 13.2 g/dL (12.2-16.2); Immature Granulocytes % 0.7 %; Mean Corpuscular HGB Conc 30.6 g/dL (31.8-35.4); Mean Corpuscular Hemoglobin 28.0 pg (27.0-31.2); Mean Corpuscular Volume 91.5 fl (81-99); Nucleated Red Blood Cells % 0 %; Platelet Count 210 K/mm3 (142-424); Red Blood Count 4.71 M/mm3 (4.20-5.40); Red Cell Distribution Width-SD 48.2 fL; White Blood Count 6.1 K/mm3 (4.8-10.8)
[2025-03-18 19:58] LABS: Alanine Aminotransferase 16 U/L (12-78); Albumin Level 4.0 g/dl (3.5-5.0); Albumin/Globulin Ratio 1.6 (1.1-1.8); Alkaline Phosphatase 129 U/L (38-126); Anion Gap 10.6 mEq/L (5-15); Aspartate Amino Transferase 30 U/L (14-36); Bilirubin,Total 0.5 mg/dl (0.2-1.3); Blood Urea Nitrogen 13 mg/dl (7-17); Calcium 9.7 mg/dl (8.4-10.2); Carbon Dioxide 29 mmol/L (22.0-30.0); Chloride 106 mmol/L (98-107); Creatinine,Serum 1.00 mg/dl (0.52-1.04); Estimated Glomerular Filt Rate 53 ml/min (>60); GFR (African American) 64 ML/MIN (>60); Globulin 2.5 g/dL (1.3-3.2); Glucose 78 mg/dl (74-100); Potassium 4.6 mmoL/L (3.5-5.1); Sodium 141 mmol/L (136-145); Total Protein,Serum 6.5 g/dl (6.3-8.2)
--- OUTSIDE RECORDS SUMMARY | 2025-03-20 10:10 | XMS_ITS | Clinical Summary ---
Author Organization [facility] [place] [address] Phone Care Team Providers Care Cis Coordinator Name Role Phone Itz Urbano MD Primary Care Provider [phone] Social History Tobacco Use Types Packs/Day Years Used Date Smoking Tobacco: Never Assessed Comments No Sex and Gender Information Value Date Recorded Sex Assigned at Not on file Legal Sex Female 5:34 PM EDT Gender Identity Not on file Sexual Orientation Not on file Plan of Treatment Health Maintenance Due Date Last Done Comments Wellness Exam Medicare 1943 DTaP/TDaP/Td (1 - Tdap) 1960 Pneumococcal Vaccine 50+ (1 of 1 - PCV) 10/31/1991 Zoster (1 of 2) 10/31/1991 RSV or 60+ (1 - 1-dose 75+ series) 2016 COVID-19 Vaccine ( - 2023-2 5 season) 2025 Influenza Vaccine (#1) 2025 Bone Density Screening Completed 3, 04/20/2011 Hepatitis B Vaccine Aged Out No longe r eligible based on patient's age to complete this topic Meningococcal B Vaccine Aged Out No l onger eligible based on patient's age to complete this topic Procedures Procedure Name Priority Date/Time Associated Diagnosis Comments DX BONE DENSITY AXIAL SKELETON Routine 05/21/2013 2:51 PM EST Asymptomatic postmenopausal status (age-related) (natural) from Last 3 Months or Most Recently Relevant to Health Maintenance Results * DX BONE DENSITY AXIAL SKELETON (05/21/2013 2:51 PM EST) Anatomical Region Laterality Modality Dexa Scan Narrative 06/05/2013 9:23 AM EST A dexa scan was performed. This exam was read and signed by a Radiologist. The signed final Dexa report should have already been faxed to the referring Doctor Procedure Note Goyo Ramirez MD - 06/05/2013 A dexa scan was performed. This exam was read and signed by a Radiologist.The signed final Dexa report should have already been faxed to thereferring Doctor us Itz Urbano MD IMG DEXA ORDERABLES Final Result from Last 3 Months or Most Recently Relevant to Health Maintenance Insurance [employer] MEDICARE PPO MR My Team [employer] MEDICARE PPO MR MEDICARE [place] PART A AND B [facility] Care Teams Cis Coordinator Relationship Specialty Start Date End Date Itz Urbano MD PCP - General 04/19/11
== END 2025-03-18 23:59 | disposition home or self-care (01) ==
LOC: LAB.DROPOF 03-20 10:04
PROVIDERS: PCP Family Medicine; Visit Provider Family Medicine
DX: I73.9 Peripheral vascular disease, unspecified (principal); M17.12 Unilateral primary osteoarthritis, left knee; R60.0 Localized edema
CPT/HCPCS: 80053; 85025; 85651